=== PATIENT | female | born 1945 | race Caucasian/White ===

== ENCOUNTER 2024-11-09 07:46 | Observation (INO) ==
--- NOTE | 2024-11-09 08:04 | Emergency Department Note ---
Impression & Plan Ambulatory dysfunction, Fall, Head injury, Acute pain of right hip ED Provider Note HISTORY OF PRESENT ILLNESS: Patient is a 79-year-old female presenting after a fall from standing. Patient reportedly was walking and trying to sit in a chair when she lost her footing and fell backwards, striking the back of her head and her right hip. No reported loss of consciousness. She is not on any anticoagulation or antiplatelet therapies. Patient reports she does not remember the events leading to her falling and hitting her head. She denies any numbness or tingling or weakness in her extremities. She is complaining of some right hip pain. History is difficult to obtain, as patient is a poor historian. Denies any chest pain, shortness of breath or lightheadedness prior to her fall. Denies any headache or changes in vision. Reports "I have a bump on the back of my head." ROS: as above PHYSICAL EXAM: Constitutional: Patient appears in no acute distress. HENT: Head: Normocephalic. Small hematoma to the right posterior occipital region. No overlying skin changes or lacerations. Eyes: EOMI, PERRL Mouth/Throat: Mucous membranes moist. Neck: Trachea midline. Neck supple. No midline cervical spine tenderness to palpation. Cardiovascular: RRR, No murmurs, rubs or gallops. Intact distal pulses. Pulmonary/Chest: No respiratory distress. Breath sounds clear and equal bilaterally. No wheezes or rales. Sizable masslike lesion on the left proximal breast. There is overlying scabs to the area. Mass is mobile and nontender to palpation. Abdominal: Abdomen soft, no tenderness, rebound or guarding. Back: No midline spinal tenderness, no paraspinal tenderness, no CVA tenderness. Musculoskeletal: No edema or deformity noted. Patient is able to straight leg raise with the left leg. She is unable to lift the right leg off the bed. She complains of pain in the right hip with internal and external rotation of the femur. No obvious deformity. Skin: Warm and dry. No rash, erythema, pallor or cyanosis Neurological: Alert. CN II-XII grossly intact, moving all extremities equally and fully. MDM: - Vitals signs showed hypotension - History obtained via patient and EMS. History as above. - Chronic conditions affecting care: none - Differential diagnoses include, but are not limited to: Intracranial hemorrhage; CVA; skull fracture; UTI; pneumonia; hip fracture - Order placed for continuous cardiac monitoring. At this time, monitor showed rate of 83 bpm with normal sinus rhythm, per my interpretation. - External medical records reviewed. - EKG image interpreted by myself showed normal sinus rhythm. Rate 94 bpm. QT 366. No acute ischemic changes. - Laboratory workup interpreted by myself showed normal WBC; normal PT/INR; stable electrolytes; CKD; normal troponin - CXR image viewed by myself is negative for pneumonia or pneumothorax, per my interpretation - Xray pelvis with right hip views were negative for fracture. - CT head wo contrast for acute intracranial pathology. - CT cervical spine wo contrast negative for acute fracture. - Patient given 500 cc NS in ER. - Attempted to ambulatory challenge the patient to see about getting her discharged back to her facility. 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 Nursing called the patient's facility and they report that the patient is normally ambulatory without any assistive devices. Will admit to hospital service for PT/OT assessment. - Discussion was had with clinical case manager about patient's case and need for admission - Hospitalist consulted for admission - [facility] ASSESSMENT AND PLAN: Diagnosis: Fall; head injury; acute right hip pain; ambulatory dysfunction Plan: Admit Past Med/Surg History Problem List (Updated 11/09/24 @ 13:19 by Rachele Estrella MD) Acute pain of right hip (Acute) Head injury (Acute) Fall (Acute) Ambulatory dysfunction (Acute) Social History Smoking Status: Never smoker Preferred Language: Kyrgyz Feels Safe at Home: Yes Allergies Allergies Allergy/AdvReac Type Severity Reaction Status Date / Time No Known Allergies Allergy Verified 11/09/24 09:28 Home Meds Home Medications Medication Instructions Recorded Confirmed cholecalciferol (vitamin D3) 50 50 mcg PO QAM 10/01/24 11/09/24 mcg (2,000 unit) capsule (Vitamin D3) cyanocobalamin (vitamin B-12) 1,000 mcg PO QAM 10/01/24 11/09/24 1,000 mcg tablet (Vitamin B-12) ferrous sulfate 325 mg (65 mg 325 mg PO 3XWK 10/01/24 11/09/24 iron) tablet (FeroSul) hydroxyzine HCl 25 mg tablet 25 mg PO BID 10/01/24 11/09/24 levothyroxine 75 mcg tablet 75 mcg PO QAM 10/01/24 11/09/24 Results & Data (ED) Vital Signs Vital Signs - 24 hr 11/09/24 07:45 11/09/24 07:45 11/09/24 08:08 Temperature 36.5 C 36.5 C Temperature Source Oral Oral Pulse Rate - Lying Pulse Rate - Sitting Pulse Rate - Standing Pulse Rate 89 89 Pulse Rate [Apical] 89 Pulse Rhythm Regular Regular Pulse Rhythm [Apical] Regular Pulse Strength Normal Pulse Strength [Apical] Normal Respiratory Rate 16 16 16 Respiratory Effort / Characteristics Non-Labored Spontaneous Non-Labored Spontaneous Respiratory Depth Normal Normal Respiratory Pattern Regular Regular Blood Pressure - Lying Blood Pressure - Sitting Blood Pressure- Standing Blood Pressure 95/71 L Blood Pressure [Right Arm] 95/71 L Blood Pressure Mean 79 Blood Pressure Mean [Right Arm] 79 Blood Pressure Position Lying Blood Pressure Position [Right Arm] Lying Pulse Oximetry 100 100 100 Oxygen Delivery Method Room Air Room Air Sepsis Recent Fever Within 48 Hours No Sepsis New/Unexplained Change in Mental Status No Sepsis Action Taken by Nursing No Action Required 11/09/24 08:08 11/09/24 09:37 11/09/24 10:04 Temperature Temperature Source Pulse Rate - Lying Pulse Rate - Sitting Pulse Rate - Standing Pulse Rate 86 Pulse Rate [Apical] 94 H 66 Pulse Rhythm Pulse Rhythm [Apical] Regular Regular Pulse Strength Pulse Strength [Apical] Normal Normal Respiratory Rate 18 21 Respiratory Effort / Characteristics Non-Labored Spontaneous Non-Labored Spontaneous Respiratory Depth Normal Normal Respiratory Pattern Regular Regular Blood Pressure - Lying Blood Pressure - Sitting Blood Pressure- Standing Blood Pressure Blood Pressure [Right Arm] 135/93 Blood Pressure Mean Blood Pressure Mean [Right Arm] 107 Blood Pressure Position Blood Pressure Position [Right Arm] Sitting Pulse Oximetry 98 94 Oxygen Delivery Method Room Air Room Air Sepsis Recent Fever Within 48 Hours Sepsis New/Unexplained Change in Mental Status Sepsis Action Taken by Nursing 11/09/24 10:04 11/09/24 12:00 Temperature Temperature Source Pulse Rate - Lying 87 Pulse Rate - Sitting 85 Pulse Rate - Standing 85 Pulse Rate Pulse Rate [Apical] 83 Pulse Rhythm Pulse Rhythm [Apical] Regular Pulse Strength Pulse Strength [Apical] Normal Respiratory Rate 15 Respiratory Effort / Characteristics Non-Labored Spontaneous Respiratory Depth Normal Respiratory Pattern Regular Blood Pressure - Lying 98/63 L Blood Pressure - Sitting 97/60 L Blood Pressure- Standing 96/55 L Blood Pressure Blood Pressure [Right Arm] 102/78 Blood Pressure Mean Blood Pressure Mean [Right Arm] 86 Blood Pressure Position Blood Pressure Position [Right Arm] Sitting Pulse Oximetry 98 Oxygen Delivery Method Room Air Sepsis Recent Fever Within 48 Hours Sepsis New/Unexplained Change in Mental Status Sepsis Action Taken by Nursing Laboratory Data 11/09/24 08:24 11/09/24 08:24 Lab Results 11/09/24 11/09/24 Range/Units 08:24 12:13 WBC 9.11 (4.8-10.8) K/ul RBC 3.97 L (4.20-5.40) M/uL Hgb 11.3 L (12.0-16.0) g/dl Hct 35.6 L (37.0-47.0) % MCV 89.7 (80.0-100.0) fL MCH 28.5 (25.0-34.0) pg MCHC 31.7 L (32.0-36.0) g/dL RDW Std Deviation 46.9 H (36.4-46.3) fL RDW Coeff of Walker 14.2 (11.5-14.5) % Plt Count 276 (130-400) K/uL MPV 9.3 L (9.4-12.4) fL Immature Gran % (Auto) 0.2 % Neut % (Auto) 56.6 % Lymph % (Auto) 32.2 % [place] % (Auto) 9.8 % Eos % (Auto) 0.8 % Baso % (Auto) 0.4 % Neut # (Auto) 5.16 (1.40-6.50) K/uL Lymph # (Auto) 2.93 (1.20-3.40) K/uL [place] # (Auto) 0.89 H (0.11-0.59) K/uL Eos # (Auto) 0.07 (0.00-0.50) K/uL Baso # (Auto) 0.04 (0.00-0.20) K/uL Immature Gran # (Auto) 0.02 (0.01-0.20) K/uL PT 10.6 (9.0-12.0) Seconds INR 1.0 (0.9-1.1) Sodium 140 (136-145) mmol/L Potassium 4.2 (3.5-5.1) mmol/L Chloride 109 H (98-107) mmol/L Carbon Dioxide 27 (21-32) mmol/L Anion Gap 4 (3-11) BUN 27 H (6-23) mg/dl Creatinine 1.63 H (0.6-1.2) mg/dl Est Cr Clr Drug Dosing Not Reportable eGFR 32.08 BUN/Creatinine Ratio 16.6 (10-20) Glucose 96 (70-99(Fasting)) mg/dl Calcium 8.7 (8.6-10.3) mg/dl Magnesium 1.9 (1.7-2.4) mg/dl Total Bilirubin 0.3 (0.2-1.0) mg/dl AST 13 (13-39) U/L ALT 8 (7-52) U/L Alkaline Phosphatase 80 (34-104) U/L Troponin I High Sens 4.9 (0-14) pg/ml Total Protein 5.8 L (6.0-8.3) gm/dl Albumin 2.9 L (3.4-5.0) gm/dl Globulin 2.9 (2.5-4.0) gm/dl Albumin/Globulin Ratio 1.0 (0.9-2) Urine Color Yellow Urine Appearance Clear (Clear) Urine pH 5.0 (4.5-7.5) Ur Specific Venus 1.013 (1.000-1.030) Urine Protein Negative (Negative) Urine Glucose (UA) Negative (Negative) Urine Ketones Negative (Negative) Urine Blood Negative (Negative) Urine Nitrite Negative (Negative) Urine Bilirubin Negative (Negative) Urine Urobilinogen Negative (Negative) Ur Leukocyte Esterase 1+ H (Negative) Urine WBC (Auto) 0-5 (0-5) /hpf Urine RBC (Auto) 0-2 (0-2) /hpf U Hyaline Cast (Auto) 6-10 H (0-2) /lpf U Epithel Cells (Auto) 0-2 (0-2) /hpf Urine Bacteria (Auto) None Seen (None Seen) Urine Comment Administered Medications Discontinued Medications Sodium Chloride (Nss) 500 mls @ 999 mls/hr IV .Q31M ONE Stop: 11/09/24 09:31 Last Infusion: 11/09/24 09:58 Dose: Infused Documented By: [facility] Admin: 11/09/24 09:20 Dose: 999 mls/hr Documented By: [facility] Imaging Data Radiologist's Impression: Cervical Spine CT 11/09/24 08:00 CT SCAN OF THE CERVICAL SPINE CLINICAL HISTORY: Fall. COMPARISON STUDY: Cervical spine CT October 01, 2024. TECHNIQUE: CT scan of the cervical spine is performed from the skull base to the upper thoracic spine. Images are reviewed in the axial, sagittal, and coronal planes. IV contrast was not administered for this examination. A dose lowering technique was utilized adhering to the principles of ALARA. CT DOSE: 1034.17 mGy.cm FINDINGS: Skeletal structures: There is no evidence of fracture or subluxation involving the cervical spine. Mild reversal of the cervical lordosis is unchanged. Vertebral body height and alignment are maintained. The odontoid process and lateral masses are intact. The atlantoaxial articulation is preserved. The spinous processes appear intact. Severe multilevel facet arthrosis and moderate disc space narrowing and endplate osteophytosis is again noted. Soft tissues: The prevertebral and paraspinous soft tissues are within normal limits. Calvarium: The visualized calvarium at the skull base appears intact. Brain parenchyma: Partially visualized brain parenchyma at the skull base is within normal limits. Lung apices: Clear as visualized. IMPRESSION: No acute cervical spine fracture or subluxation. ACT 112: Negative or not required by law. Electronically signed by: Roque Russell M.D. 11/09/2024 8:55 AM Chest X-Ray 11/09/24 08:00 XR chest 1V portable CLINICAL HISTORY: fall COMPARISON STUDY: None FINDINGS: Heart size and pulmonary vasculature are normal. No consolidation or pleural effusion. No pneumothorax. No grossly displaced rib fractures seen. IMPRESSION: No acute findings seen. ACT 112: Negative or not required by law. Electronically signed by: Johnson Collier M.D. 11/09/2024 8:[address] 11/09/24 08:00 CT SCAN OF THE BRAIN WITHOUT IV CONTRAST CLINICAL HISTORY: Fall. Head injury. COMPARISON STUDY: CT of the brain dated 10/01/2024 TECHNIQUE: Unenhanced axial CT scan of the brain is performed from the vertex to the skull base. Images are reviewed in the axial, sagittal, coronal planes. A dose lowering technique was utilized adhering to the principles of ALARA. FINDINGS: Brain parenchyma: There is age-related involutional change noting [id number] subcortical and periventricular microangiopathic disease. There is no hemorrhage, mass effect, or evidence of acute territorial ischemia by CT criteria. A tiny chronic lacunar infarct is noted in the right cerebellar hemisphere. Zimmerman-white matter differentiation is preserved. No extra-axial fluid collection is seen. Ventricles, sulci, cisterns: Prominent secondary to involutional change. Intracranial vasculature: There is atherosclerotic calcification of the cavernous carotid arteries. Calvarium: The skeletal structures are osteopenic. No depressed calvarial fracture is seen. Soft tissues: There is a posterior scalp contusion. Sinuses and mastoids: The visualized paranasal sinuses are clear. The mastoid air cells are well pneumatized. Orbits: The bony orbits are grossly intact. IMPRESSION: There is no hemorrhage, mass effect, or evidence of acute territorial ischemia by CT criteria. ACT 112: Negative or not required by law. Electronically signed by: Pollo Olivares M.D. 11/09/2024 8:54 AM Hip/Pelvis X-Ray 11/09/24 08:00 XR hip RT 2V w pelvis CLINICAL HISTORY: R hip pain s/p fall COMPARISON: None FINDINGS: There is a skinfold artifact. No fracture or dislocation seen. IMPRESSION: No fracture seen. ACT 112: Negative or not required by law. Electronically signed by: Johnson Collier M.D. 11/09/2024 8:26 AM Discharge Plan Visit Data Chief Complaint: Fall ED Provider: Rachele Estrella Discharge Problem: Ambulatory dysfunction, Fall, Head injury, Acute pain of right hip Condition: Fair Forms Stand Alone Forms: [facility] Prescriptions Prescriptions: No Action cyanocobalamin (vitamin B-12) [Vitamin B-12] 1,000 mcg Tablet 1,000 mcg PO QAM levothyroxine 75 mcg tablet 75 mcg PO QAM ferrous sulfate [FeroSul] 325 mg (65 mg iron) Tablet 325 mg PO 3XWK Rx Instructions: MON, WED, & FRI hydroxyzine HCl 25 mg tablet 25 mg PO BID cholecalciferol (vitamin D3) [Vitamin D3] 50 mcg (2,000 unit) Capsule 50 mcg PO QAM Referrals Referrals: Becca Ng [Primary Care Provider] -
--- NOTE | 2024-11-09 08:28 | XRay Report ---
XR chest 1V portable CLINICAL HISTORY: fall COMPARISON STUDY: None FINDINGS: Heart size and pulmonary vasculature are normal. No consolidation or pleural effusion. No p neumothorax. No grossly displaced rib fractures seen. IMPRESSION: No acute findings seen. ACT 112: Negative or not required by law. Electronically signed by: Johnson Collier M.D. 11/09/2024 8:26 AM
--- NOTE | 2024-11-09 08:28 | XRay Report ---
XR hip RT 2V w pelvis CLINICAL HISTORY: R hip pain s/p fall COMPARISON: None FINDINGS: There is a skinfold artifact. No fracture or dislocation seen. IMPRESSION: No fracture seen. ACT 112: Negative or not required by law. Electronically signed by: Johnson Collier M.D. 11/09/2024 8:26 AM
[2024-11-09 08:40] LABS: Hematocrit (blood only) 35.6 % (37.0-47.0); Hemoglobin 11.3 g/dl (12.0-16.0); Immature Granulocytes # (auto) 0.02 K/uL (0.01-0.20); Immature Granulocytes % (auto) 0.2 %; Mean Corpuscular Hemoglobin 28.5 pg (25.0-34.0); Mean Corpuscular Volume 89.7 fL (80.0-100.0); Platelet Count 276 K/uL (130-400); RDW Standard Deviation 46.9 fL (36.4-46.3); Red Blood Count 3.97 M/uL (4.20-5.40); White Blood Count 9.11 K/ul (4.8-10.8)
--- NOTE | 2024-11-09 08:56 | CT Scan Report ---
CT SCAN OF THE BRAIN WITHOUT IV CONTRAST CLINICAL HISTORY: Fall. Head injury. COMPARISON STUDY: CT of the brain dated 10/01/2024 TECHNIQUE: Unenhanced axial CT scan of the brain is performed from the vertex to the skull base. Imag es are reviewed in the axial, sagittal, coronal planes. A dose lowering technique was utilized adheri ng to the principles of LANDY. FINDINGS: Brain parenchyma: There is age-related involutional change noting [id number] subcortical and pe riventricular microangiopathic disease. There is no hemorrhage, mass effect, or evidence of acute ter ritorial ischemia by CT criteria. A tiny chronic lacunar infarct is noted in the right cerebellar hem isphere. Zimmerman-white matter differentiation is preserved. No extra-axial fluid collection is seen. Ventricles, sulci, cisterns: Prominent secondary to involutional change. Intracranial vasculature: There is atherosclerotic calcification of the cavernous carotid arteries. Calvarium: The skeletal structures are osteopenic. No depressed calvarial fracture is seen. Soft tissues: There is a posterior scalp contusion. Sinuses and mastoids: The visualized paranasal sinuses are clear. The mastoid air cells are well pneu matized. Orbits: The bony orbits are grossly intact. IMPRESSION: There is no hemorrhage, mass effect, or evidence of acute territorial ischemia by CT robetr talamantes. ACT 112: Negative or not required by law. Electronically signed by: Pollo Olivares M.D. 11/09/2024 8:54 AM
--- NOTE | 2024-11-09 08:57 | CT Scan Report ---
CT SCAN OF THE CERVICAL SPINE CLINICAL HISTORY: Fall. COMPARISON STUDY: Cervical spine CT October 01, 2024. TECHNIQUE: CT scan of the cervical spine is performed from the skull base to the upper thoracic spine . Images are reviewed in the axial, sagittal, and coronal planes. IV contrast was not administered fo r this examination. A dose lowering technique was utilized adhering to the principles of ALARA. CT DOSE: 1034.17 mGy.cm FINDINGS: Skeletal structures: There is no evidence of fracture or subluxation involving the cervical spine. Mi ld reversal of the cervical lordosis is unchanged. Vertebral body height and alignment are maintained . The odontoid process and lateral masses are intact. The atlantoaxial articulation is preserved. Th e spinous processes appear intact. Severe multilevel facet arthrosis and moderate disc space narrowin g and endplate osteophytosis is again noted. Soft tissues: The prevertebral and paraspinous soft tissues are within normal limits. Calvarium: The visualized calvarium at the skull base appears intact. Brain parenchyma: Partially visualized brain parenchyma at the skull base is within normal limits. Lung apices: Clear as visualized. IMPRESSION: No acute cervical spine fracture or subluxation. ACT 112: Negative or not required by law. Electronically signed by: Roque Russell M.D. 11/09/2024 8:55 AM
[2024-11-09 09:00] LABS: Alanine Aminotransferase 8 U/L (7-52); Albumin Globulin Ratio 1.0 (0.9-2); Alkaline Phosphatase 80 U/L (34-104); Anion Gap 4 (3-11); Bilirubin,Total 0.3 mg/dl (0.2-1.0); Blood Urea Nitrogen 27 mg/dl (6-23); Calcium 8.7 mg/dl (8.6-10.3); Carbon Dioxide 27 mmol/L (21-32); Chloride 109 mmol/L (98-107); Globulin 2.9 gm/dl (2.5-4.0); Glucose 96 mg/dl (70-99(Fasting)); Magnesium 1.9 mg/dl (1.7-2.4); Potassium 4.2 mmol/L (3.5-5.1); Sodium 140 mmol/L (136-145); Total Protein 5.8 gm/dl (6.0-8.3)
[2024-11-09] MEDS: SODIUM CHLORIDE 0.9% 500 ML IV ONE (09:20)
[2024-11-09 09:26] LABS: INR 1.0 (0.9-1.1); Prothrombin Time 10.6 Seconds (9.0-12.0)
[2024-11-09 13:03] LABS: Appearance Urine Clear (Clear); Bacteria Urine Automated None Seen (None Seen); Epithelial Cell Urine Auto 0-2 /hpf (0-2); Glucose Urine UA Negative (Negative); RBC Urine Automated 0-2 /hpf (0-2); WBC Urine Automated 0-5 /hpf (0-5)
--- NOTE | 2024-11-09 13:40 | History & Physical Report ---
Date of Service November 09, 2024 Assessment & Plan (1) Fall: Plan 79F with PMH demenita, CKD3, hypothyroidism who presents from [facility] with unwitnessed fall #Fall -No LOC. There was concern for her hitting the back of her head -Trauma scans neg for fracture -Full passive and active ROM of all extremities -She is max assist x 2 in ED -[facility] unwilling to take her back as she was reported to have been ambulating without assistance at [facility] Plan -PT/OT -Fall precautions -CM to assist for placement #Hypothyroidism -Check TSH. continue home synthroid 100mcg #CKD3 -At baseline. avoid nephrotoxic agents if possible #Dementia -Looks severe/end stage -High risk for delirium. -Avoid Beer's list medications -Reorientation techniques History of Present Illness Chief Complaint: fall Primary Care Provider: Becca Reza Ms. Espinoza is a pleasantly confused 79F with PMH dementia, CKD3, hypothyroidism who presents from [facility] with an unwitnessed fall at facility. According to report, there was no LOC. She was brought in for evaluation. she is a limited historian due to her dementia. She denies any complaints currently. Patient denies WARE vision changes, F/C, CP, palpitations, SOB, dyspnea, abd pain, N/V/D, dysuria. ED vitals stable Labs at baseline and consistent with known CKD3 Allergies Allergy/AdvReac Type Severity Reaction Status Date / Time No Known Allergies Allergy Verified 11/09/24 09:28 Home Medications Medication Instructions Recorded Confirmed Type cholecalciferol (vitamin D3) 50 50 mcg PO QAM 10/01/24 11/09/24 History mcg (2,000 unit) capsule (Vitamin D3) cyanocobalamin (vitamin B-12) 1,000 mcg PO QAM 10/01/24 11/09/24 History 1,000 mcg tablet (Vitamin B-12) ferrous sulfate 325 mg (65 mg 325 mg PO 3XWK 10/01/24 11/09/24 History iron) tablet (FeroSul) hydroxyzine HCl 25 mg tablet 25 mg PO BID 10/01/24 11/09/24 History levothyroxine 75 mcg tablet 75 mcg PO QAM 10/01/24 11/09/24 History Past Med/Surg History Problem List Acute pain of right hip (Acute) Head injury (Acute) Fall (Acute) Ambulatory dysfunction (Acute) Social History Smoking Status: Never smoker Preferred Language: Upper Sorbian Feels Safe at Home: Yes Review of Systems Review of Systems: Constitutional: No Weight Change, No Fever, No Chills, No Night Sweats, No Fatigue, No Malaise ENT/Mouth: No Hearing Changes, No Ear Pain, No Nasal Congestion, No Sinus Pain, No Hoarseness, No sore throat, No Rhinorrhea, No Swallowing Difficulty Eyes: No Eye Pain, No Swelling, No Redness, No Foreign Body, No Discharge, No Vision Changes Cardiovascular: No Chest Pain, No SOB, No PND, No Dyspnea on Exertion, No Orthopnea, No Claudication, No Edema, No Palpitations Respiratory: No Cough, No Sputum, No Wheezing, No Smoke Exposure, No Dyspnea Gastrointestinal: No Nausea, No Vomiting, No Diarrhea, No Constipation, No Pain, No Heartburn, No Anorexia, No Dysphagia, No Hematochezia, No Melena, No Flatulence, No Jaundice Genitourinary: No Dysmenorrhea, No DUB, No Dyspareunia, No Dysuria, No Urinary Frequency, No Hematuria, No Urinary Incontinence, No Urgency, No Flank Pain, No Urinary Flow Changes, No Hesitancy Musculoskeletal: No Arthralgias, No Myalgias, No Joint Swelling, No Joint Stiffness, No Back Pain, No Neck Pain, No Injury History Skin: No Skin Lesions, No Pruritis, No Hair Changes, No Breast/Skin Changes, No Nipple Discharge Neuro: No Weakness, No Numbness, No Paresthesias, No Loss of Consciousness, No Syncope, No Dizziness, No Headache, No Coordination Changes, No Recent Falls Psych: No Anxiety/Panic, No Depression, No Insomnia, No Personality Changes, No Delusions, No Rumination, No SI/HI/AH/VH, No Social Issues, No Memory Changes, No Violence/Abuse Hx., No Eating Concerns Heme/Lymph: No Bruising, No Bleeding, No Transfusions History, No Lymphadenopathy Endocrine: No Polyuria, No Polydipsia, No Temperature Intolerance Physical Exam Physical Exam: Vitals and labs reviewed General: Well appearing, NAD HEENT: EOMI, PERRLA Neck: Supple Cardiac: RRR no rubs gallops or murmurs Lungs: CTA no rhonchi wheezing or rales Abd: S NT ND BS positive : Deferred MSK: Full active and passive ROM. No obvious deformities. Ext: No Edema cyanosis Skin: Warm, Dry Neuro: Alert. oriented to self only Psych: calm Results & Data Results & Data Vital Signs (Past 12 Hours) Vital Signs Temp Pulse Pulse Resp BP BP Pulse Ox 11/09/24 12:00 83 15 102/78 98 11/09/24 10:04 66 21 135/93 94 11/09/24 09:37 94 H 18 98 11/09/24 08:08 86 11/09/24 08:08 89 16 100 11/09/24 07:45 36.5 C 89 16 95/71 L 100 11/09/24 07:45 36.5 C 89 16 95/71 L 100 O2 Del Method 11/09/24 12:00 Room Air 11/09/24 10:04 Room Air 11/09/24 09:37 Room Air 11/09/24 08:08 11/09/24 08:08 Room Air 11/09/24 07:45 11/09/24 07:45 Room Air Laboratory Results Abnormal lab results 11/09/24 11/09/24 Range/Units 08:24 12:13 RBC 3.97 L (4.20-5.40) M/uL Hgb 11.3 L (12.0-16.0) g/dl Hct 35.6 L (37.0-47.0) % MCHC 31.7 L (32.0-36.0) g/dL RDW Std Deviation 46.9 H (36.4-46.3) fL MPV 9.3 L (9.4-12.4) fL [place] # (Auto) 0.89 H (0.11-0.59) K/uL Chloride 109 H (98-107) mmol/L BUN 27 H (6-23) mg/dl Creatinine 1.63 H (0.6-1.2) mg/dl Total Protein 5.8 L (6.0-8.3) gm/dl Albumin 2.9 L (3.4-5.0) gm/dl Ur Leukocyte Esterase 1+ H (Negative) U Hyaline Cast (Auto) 6-10 H (0-2) /lpf Diagnostic Findings Cervical Spine CT 11/09/24 08:00 CT SCAN OF THE CERVICAL SPINE CLINICAL HISTORY: Fall. COMPARISON STUDY: Cervical spine CT October 01, 2024. TECHNIQUE: CT scan of the cervical spine is performed from the skull base to the upper thoracic spine. Images are reviewed in the axial, sagittal, and coronal planes. IV contrast was not administered for this examination. A dose lowering technique was utilized adhering to the principles of ALARA. CT DOSE: 1034.17 mGy.cm FINDINGS: Skeletal structures: There is no evidence of fracture or subluxation involving the cervical spine. Mild reversal of the cervical lordosis is unchanged. Vertebral body height and alignment are maintained. The odontoid process and lateral masses are intact. The atlantoaxial articulation is preserved. The spinous processes appear intact. Severe multilevel facet arthrosis and moderate disc space narrowing and endplate osteophytosis is again noted. Soft tissues: The prevertebral and paraspinous soft tissues are within normal limits. Calvarium: The visualized calvarium at the skull base appears intact. Brain parenchyma: Partially visualized brain parenchyma at the skull base is within normal limits. Lung apices: Clear as visualized. IMPRESSION: No acute cervical spine fracture or subluxation. ACT 112: Negative or not required by law. Electronically signed by: Roque Russell M.D. 11/09/2024 8:55 AM Chest X-Ray 11/09/24 08:00 XR chest 1V portable CLINICAL HISTORY: fall COMPARISON STUDY: None FINDINGS: Heart size and pulmonary vasculature are normal. No consolidation or pleural effusion. No pneumothorax. No grossly displaced rib fractures seen. IMPRESSION: No acute findings seen. ACT 112: Negative or not required by law. Electronically signed by: Johnson Collier M.D. 11/09/2024 8:[address] 11/09/24 08:00 CT SCAN OF THE BRAIN WITHOUT IV CONTRAST CLINICAL HISTORY: Fall. Head injury. COMPARISON STUDY: CT of the brain dated 10/01/2024 TECHNIQUE: Unenhanced axial CT scan of the brain is performed from the vertex to the skull base. Images are reviewed in the axial, sagittal, coronal planes. A dose lowering technique was utilized adhering to the principles of ALARA. FINDINGS: Brain parenchyma: There is age-related involutional change noting mild-to- moderate subcortical and periventricular microangiopathic disease. There is no hemorrhage, mass effect, or evidence of acute territorial ischemia by CT criteria. A tiny chronic lacunar infarct is noted in the right cerebellar hemisphere. Zimmerman-white matter differentiation is preserved. No extra-axial fluid collection is seen. Ventricles, sulci, cisterns: Prominent secondary to involutional change. Intracranial vasculature: There is atherosclerotic calcification of the cavernous carotid arteries. Calvarium: The skeletal structures are osteopenic. No depressed calvarial fracture is seen. Soft tissues: There is a posterior scalp contusion. Sinuses and mastoids: The visualized paranasal sinuses are clear. The mastoid air cells are well pneumatized. Orbits: The bony orbits are grossly intact. IMPRESSION: There is no hemorrhage, mass effect, or evidence of acute territorial ischemia by CT criteria. ACT 112: Negative or not required by law. Electronically signed by: Pollo Olivares M.D. 11/09/2024 8:54 AM Hip/Pelvis X-Ray 11/09/24 08:00 XR hip RT 2V w pelvis CLINICAL HISTORY: R hip pain s/p fall COMPARISON: None FINDINGS: There is a skinfold artifact. No fracture or dislocation seen. IMPRESSION: No fracture seen. ACT 112: Negative or not required by law. Electronically signed by: Johnson Collier M.D. 11/09/2024 8:26 AM Code Status & VTE Plan Code Status Full. there was no POLST in chart or in EMR link. Attempted to call brother but was sent straight to Patient does not have capacity to make her own medical decisions due to dementia VTE Prophylaxis Plan VTE Prophylaxis will be ordered: Yes
[2024-11-09 14:10] LABS: Influenza A virus by PCR Negative (Neg); Influenza B virus by PCR Negative (Neg); SARS CoV2 RNA(COVID-19) Ceph NEGATIVE (Negative)
[2024-11-09 14:30] LABS: Thyroid Stimulating Hormone 1.183 uIu/ml (0.300-4.500)
[2024-11-09] MEDS ORDERED: ONDANSETRON INJ 2 MG/ML 2 ML VIAL IV PRN (15:37)
[2024-11-09] MEDS ORDERED: ACETAMINOPHEN 325 MG TAB PO PRN (15:37)
[2024-11-09] MEDS: HEPARIN SOD 5,000 UNIT/0.5 ML VIAL SQ SCH (20:12)
[2024-11-10 07:18] VITALS: RESP 18; O2SAT 97
[2024-11-10] MEDS: DONEPEZIL HCL 10 MG TAB PO SCH (08:22)
[2024-11-10] MEDS: LEVOTHYROXINE SODIUM 100 MCG TABLET PO SCH (08:22)
--- NOTE | 2024-11-10 15:06 | Discharge Summary ---
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 In the emergency room she had extensive imaging. There was no acute fractures. However she was quite sore and was unable to ambulate without significant assistance. Patient was cared for in the hospital overnight. By the following morning she was sitting up on the edge of the bed. She was setting up her own breakfast tray. She denied any significant pain. Other vital signs are stable. Patient was seen by therapies. Her mobility improved to the point where she could return back to [facility] for ongoing care. She will follow-up with her outpatient provider. Notes For Next Care Provider Continue current care Medication Changes From Visit None Admission HPI Per Admitting Provider Ms. Espinoza is a pleasantly confused 79F with H dementia, CKD3, hypothyroidism who presents from [facility] with an unwitnessed fall at facility. According to report, there was no LOC. She was brought in for evaluation. she is a limited historian due to her dementia. She denies any complaints currently. Patient denies WARE vision changes, F/C, CP, palpitations, SOB, dyspnea, abd pain, N/V/D, dysuria. ED vitals stable Labs at baseline and consistent with known CKD3 Admission Exam Per Admitting Provider See H&P Discharge Exam Constitutional: Alert HEENT: Mucous membranes moist. Lungs: Clear to auscultation, decreased, no wheezes rales or rhonchi CV: S1-S2, regular Abdomen: Soft, nontender, nondistended Extremities: No significant edema Neuro: No focal deficits Psych: Cooperative, impaired memory and cognition Updated Medication List Medication Instructions Recorded Confirmed Type cholecalciferol (vitamin D3) 50 50 mcg PO QAM 10/01/24 11/09/24 History mcg (2,000 unit) capsule (Vitamin D3) cyanocobalamin (vitamin B-12) 1,000 mcg PO QAM 10/01/24 11/09/24 History 1,000 mcg tablet (Vitamin B-12) ferrous sulfate 325 mg (65 mg 325 mg PO 3XWK 10/01/24 11/09/24 History iron) tablet (FeroSul) hydroxyzine HCl 25 mg tablet 25 mg PO BID 10/01/24 11/09/24 History levothyroxine 75 mcg tablet 75 mcg PO QAM 10/01/24 11/09/24 History Hospital Stay Data Consultations 11/09/24 13:14 ED Decision to Admit Stat Diagnostic Imagining Performed 11/09/24 08:00 CT cervical spine wo con Stat CT head/brain wo con Stat Reviewed imaging, laboratory and diagnostic studies. Pertinent findings as below. WBCs 9.1 Hemoglobin 11.3 Electrolytes stable Creatinine 1.63, baseline Urinalysis unremarkable for any signs of infection COVID/flu/RSV negative Hip and pelvis x-ray no fracture Head CT no hemorrhage mass effects or evidence of ischemia Chest x-ray no acute findings Cervical spine x-ray no fracture or acute findings Pending Results Patient Have Any Pending Studies at Discharge: No Discharge Instructions Given to Patient (Per Discharging Provider) Continue with care at [facility] Consider therapies Total Time Total Time Spent Total Time Spent (In Minutes): 25
[2024-11-10 15:27] VITALS: BP 95/59; PULSE 79; TEMP 97.9
--- NOTE | 2024-11-11 07:03 | Electrocardiogram Report ---
Test Reason : Blood Pressure : */* mmHG Vent. Rate : 94 BPM Atrial Rate : 80 BPM P-R Int : 174 ms QRS Dur : 70 ms QT Int : 366 ms P-R-T Axes : -21 -12 -54 degrees QTcB Int : 457 ms Poor data quality, interpretation may be adversely affected Sinus rhythm Low voltage QRS Cannot rule out Inferior infarct , age undetermined Abnormal ECG No previous ECGs available Confirmed by Thiago Jose ([id number]) on 11/11/2024 7:03:08 AM Referred By: REFERRED SELF Confirmed By: Thiago Jose
== END 2024-11-10 17:27 | disposition home or self-care (01) ==
LOC: 3W 07:46 → ED 07:46 → SUATTDRO 13:33 → 3W 15:41

== ENCOUNTER 2025-01-01 22:19 | Inpatient (IN) ==
[2025-01-01 23:24] LABS: Hematocrit (blood only) 34.2 % (37.0-47.0); Hemoglobin 10.8 g/dl (12.0-16.0); Immature Granulocytes # (auto) 0.03 K/uL (0.01-0.20); Immature Granulocytes % (auto) 0.3 %; Mean Corpuscular Hemoglobin 28.4 pg (25.0-34.0); Mean Corpuscular Volume 90.0 fL (80.0-100.0); Platelet Count 295 K/uL (130-400); RDW Standard Deviation 49.3 fL (36.4-46.3); Red Blood Count 3.80 M/uL (4.20-5.40); White Blood Count 10.75 K/ul (4.8-10.8)
--- NOTE | 2025-01-01 23:31 | Emergency Department Note ---
Impression & Plan Closed fracture of left hip, Fall, Acute UTI admit to the [facility] ED Provider Note NAME: YOBANY HARO AGE: 79 SEX: Female INFORMANT: Patient ED PROVIDER(S): Ely Bennett DO CHIEF COMPLAINT: fall PLAN: Disposition: admit to the [facility] MEDICAL DECISION MAKING: This is a 79-year-old female patient from [facility] who presents to the emergency department complaining of hip pain. the patient was found on the floor unable to move because of pain. She was brought to the emergency department by EMS. On my exam, the patient seems to localize her pain to the left hip. Patient was medicated with IV fentanyl here to facilitate radiographic imaging. She had laboratory studies drawn a catheterized urine specimen obtained. X-ray showed a femoral neck fracture and urine specimen showed a UTI. She required additional doses of IV fentanyl for pain management. I discussed the case with the [facility] and he will evaluate for further inpatient care. Laboratory studies revealed no leukocytosis or worsening anemia. Renal function was normal. Glucose was normal. Care/management discussed with: marketing segment manager and [facility] Triage Nursing notes: reviewed and agree With them. Vital Signs: reviewed and unremarkable Additional History obtained from: EMS Chronic Medical/Social Conditions affecting care: dementia Differential Diagnosis: pelvis fracture, hip fracture, femur fracture, anemia, UTI, hypoglycemia Diagnostics, independently interpreted by me: Cardiac Monitoring: normal sinus rhythm at a rate of 77 Imaging studies: left hip/pelvis x-ray: left femoral neck fracture HPI: 79 year old Female arrives for evaluation of Fall. patient from [facility] unit who presents to the emergency department complaining of hip pain. the patient was on the floor will remove because of the pain. She was brought to the emergency department by EMS. On my exam, the patient seems to localize her pain to the left hip. PAST MEDICAL HISTORY: See Below, PAST SURGICAL HISTORY: See Below, SOCIAL HISTORY: See Below, HOME MEDICATIONS: see list ALLERGIES: none VITALS: See Below PHYSICAL EXAMINATION: Primary Survey Airway: Intact Breathing: Normal, breath sounds equal bilaterally Circulation: Skin warm, distal pulses 2+, capillary refill less than 2 seconds Disability Pupils: Equal and reactive to light, 2mm, brisk GCS: 15, E = 6 V=5 M= 4 Motor Function: Moves all extremities. Sensory: No deficits Secondary Survey GEN: Well developed and well-nourished HEAD: Normal cephalic atraumatic EYES: Pupils round reactive to light, conjunctiva clear, extraocular movements intact, no raccoons eyes ENT: No fluid in external acoustic canals, no hemotympanum, no henry's sign, nares patent, oropharynx clear NECK: No JVD, midline trachea, no cervical spine tenderness HEART: Regular rate and rhythm LUNGS: Clear to auscultation bilaterally. CHEST: Chest wall non-tender, no bruising/deformity ABD: No Gutierrez-Gill's or Morrow's sign, soft, non-tender, no rebound or guarding, PELVIS: Stable to rock. Patient does endorse some pain with compression to the left side of her pelvis BACK: No step offs or deformities, T-L spine non tender EXT: 2+ global pulses, moving all extremities well, +5/5 muscle strength globally she does have pain with palpation over the left hip. She does yell out in pain with any manipulation to the left lower extremity specifically at the hip. NEURO: patient is pleasantly confused but does follow commands Emergency department treatment: traffic monitor specialist, IV fentanyl, IV Zofran, IV fentanyl Emergency department course: The patient was evaluated in room A-12-B. A complete history and physical was performed. IV lock was initiated and labs were drawn as above. Patient was medicated with IV fentanyl to facilitate getting plain films of the left hip and pelvis. a Sims catheter was placed. she received a second dose of IV fentanyl. [facility] for [facility] care. 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: No Beliefs That Will Affect Care: None Current Living Situation: Senior Care Current Living Situation Comment: [facility] Other Information That Helps Us Care for You: No (unable to obtain) Feels Safe at Home: Declines to Answer Assistive Devices: Hospital Bed Allergies Allergies Allergy/AdvReac Type Severity Reaction Status Date / Time No Known Allergies Allergy Verified 01/01/25 23:39 Home Meds Home Medications Medication Instructions Recorded Confirmed cholecalciferol (vitamin D3) 50 50 mcg PO QAM 10/01/24 01/01/25 mcg (2,000 unit) capsule (Vitamin D3) cyanocobalamin (vitamin B-12) 1,000 mcg PO QAM 10/01/24 01/01/25 1,000 mcg tablet (Vitamin B-12) ferrous sulfate 325 mg (65 mg 325 mg PO 3XWK 10/01/24 01/01/25 iron) tablet (FeroSul) levothyroxine 75 mcg tablet 75 mcg PO QAM 10/01/24 01/01/25 hydroxyzine HCl 25 mg tablet 25 mg PO BID 12/29/24 01/01/25 Results & Data (ED) Vital Signs Vital Signs - 24 hr 01/01/25 22:29 01/01/25 22:29 01/01/25 22:47 Temperature 36.7 C Temperature Source Oral Pulse Rate 80 81 Pulse Rate [Apical] 80 Respiratory Rate 16 16 Blood Pressure 124/52 L Blood Pressure [Left Arm] 124/52 L Blood Pressure Mean 76 Blood Pressure Mean [Left Arm] 76 Pulse Oximetry 99 99 Oxygen Delivery Method Room Air Room Air Sepsis Recent Fever Within 48 Hours No Sepsis New/Unexplained Change in Mental Status No Sepsis Action Taken by Nursing No Action Required 01/01/25 23:09 01/02/25 00:00 Temperature Temperature Source Pulse Rate 80 84 Pulse Rate [Apical] Respiratory Rate 18 Blood Pressure 134/78 Blood Pressure [Left Arm] Blood Pressure Mean 106 Blood Pressure Mean [Left Arm] Pulse Oximetry 99 99 Oxygen Delivery Method Room Air Room Air Sepsis Recent Fever Within 48 Hours Sepsis New/Unexplained Change in Mental Status Sepsis Action Taken by Nursing Laboratory Data 01/01/25 22:42 01/01/25 22:42 Lab Results 01/01/25 01/01/25 01/02/25 Range/Units 22:42 23:34 00:15 WBC 10.75 (4.8-10.8) K/ul RBC 3.80 L (4.20-5.40) M/uL Hgb 10.8 L (12.0-16.0) g/dl POC Hgb 11.6 L (12.0-16.0) g/dl Hct 34.2 L (37.0-47.0) % POC Hct 34 L (37-47) % MCV 90.0 (80.0-100.0) fL MCH 28.4 (25.0-34.0) pg MCHC 31.6 L (32.0-36.0) g/dL RDW Std Deviation 49.3 H (36.4-46.3) fL RDW Coeff of Walker 14.9 H (11.5-14.5) % Plt Count 295 (130-400) K/uL MPV 10.0 (9.4-12.4) fL Immature Gran % (Auto) 0.3 % Neut % (Auto) 52.2 % Lymph % (Auto) 39.5 % Hand % (Auto) 6.9 % Eos % (Auto) 0.6 % Baso % (Auto) 0.5 % Neut # (Auto) 5.62 (1.40-6.50) K/uL Lymph # (Auto) 4.25 H (1.20-3.40) K/uL Hand # (Auto) 0.74 H (0.11-0.59) K/uL Eos # (Auto) 0.06 (0.00-0.50) K/uL Baso # (Auto) 0.05 (0.00-0.20) K/uL Immature Gran # (Auto) 0.03 (0.01-0.20) K/uL PT 10.3 (9.0-12.0) Seconds INR 1.0 (0.9-1.1) APTT 23 (21-31) Seconds PTT Ratio 0.8 POC Sodium 140 (135-144) mmol/L Sodium 141 (136-145) mmol/L POC Potassium 4.8 (3.3-5.0) mmol/L Potassium 4.7 (3.5-5.1) mmol/L POC Chloride 106 (101-112) mmol/L Chloride 108 H (98-107) mmol/L Carbon Dioxide 28 (21-32) mmol/L POC Total CO2 25 (24-31) mmol/L Anion Gap 5 (3-11) POC Anion Gap 15.0 L (16-25) mmol/L POC BUN 29 H (7-18) mg/dl BUN 28 H (6-23) mg/dl Creatinine 1.52 H (0.6-1.2) mg/dl POC Creatinine 1.6 H (0.6-1.3) mg/dl Est Cr Clr Drug Dosing Not Reportable eGFR 34.89 BUN/Creatinine Ratio 18.4 (10-20) Glucose 110 H (70-99(Fasting)) mg/dl POC Glucose (other) 127 H (70-99) mg/dl Calcium 9.1 (8.6-10.3) mg/dl POC Ioniz Calcium Marce 1.17 (1.12-1.32) mmol/l Total Bilirubin 0.3 (0.2-1.0) mg/dl AST 14 (13-39) U/L ALT 9 (7-52) U/L Alkaline Phosphatase 104 (34-104) U/L Total Protein 5.9 L (6.0-8.3) gm/dl Albumin 2.8 L (3.4-5.0) gm/dl Globulin 3.1 (2.5-4.0) gm/dl Albumin/Globulin Ratio 0.9 (0.9-2) Lipase 35 (11-82) U/L Urine Color Yellow Urine Appearance Clear (Clear) Urine pH 7.5 (4.5-7.5) Ur Specific [place] 1.017 (1.000-1.030) Urine Protein Trace H (Negative) Urine Glucose (UA) Negative (Negative) Urine Ketones Negative (Negative) Urine Blood 2+ H (Negative) Urine Nitrite Positive A (Negative) Urine Bilirubin Negative (Negative) Urine Urobilinogen Negative (Negative) Ur Leukocyte Esterase 2+ H (Negative) Urine WBC (Auto) >50 H (0-5) /hpf Urine RBC (Auto) >20 H (0-2) /hpf U Hyaline Cast (Auto) 3-5 H (0-2) /lpf U Epithel Cells (Auto) 0-2 (0-2) /hpf Urine Bacteria (Auto) 4+ H (None Seen) Urine Comment Administered Medications Hydromorphone HCl (Hydromorphone Inj 0.5 Mg/0.5 Ml Syr) 0.25 mg IV Q6H PRN PRN Reason: Pain Stop: 01/16/25 02:08 Last Admin: 01/02/25 02:21 Dose: 0.25 mg Documented By: FELICIA Lactated Ringer's (Lr) 1,000 mls @ 80 mls/hr IV .[id number] THOMAS Stop: 01/05/25 02:08 Last Admin: 01/02/25 02:17 Dose: 80 mls/hr Documented By: FELICIA Discontinued Medications Fentanyl Citrate (Fentanyl Citrate Pf 100 Mcg/2 Ml Vial) 25 mcg IV NOW ONE Stop: 01/01/25 23:07 Last Admin: 01/01/25 23:32 Dose: 25 mcg Documented By: YOANA Fentanyl Citrate (Fentanyl Citrate Pf 100 Mcg/2 Ml Vial) 50 mcg IV NOW STA Stop: 01/01/25 23:50 Last Admin: 01/01/25 23:57 Dose: 50 mcg Documented By: YOANA Ondansetron HCl (Ondansetron Inj 2 Mg/Ml 2 Ml Vial) 4 mg IV NOW STA Stop: 01/01/25 23:07 Last Admin: 01/01/25 23:32 Dose: 4 mg Documented By: YOANA Discharge Plan Visit Data Chief Complaint: Fall Stated Complaint: GLF, BILATERAL HIP PAIN ED Provider: Ely Bennett Discharge Problem: Closed fracture of left hip, Fall, Acute UTI Patient Disposition: Admitted As Inpatient Condition: Serious Discharge Instructions Interventions: ED Discharge Assessment Last Done: 01/02/25 01:29
[2025-01-01] MEDS: ONDANSETRON INJ 2 MG/ML 2 ML VIAL IV STA (23:32)
[2025-01-01 23:43] LABS: Alanine Aminotransferase 9 U/L (7-52); Albumin Globulin Ratio 0.9 (0.9-2); Albumin Level 2.8 gm/dl (3.4-5.0); Alkaline Phosphatase 104 U/L (34-104); Anion Gap 5 (3-11); Bilirubin,Total 0.3 mg/dl (0.2-1.0); Blood Urea Nitrogen 28 mg/dl (6-23); Calcium 9.1 mg/dl (8.6-10.3); Carbon Dioxide 28 mmol/L (21-32); Chloride 108 mmol/L (98-107); Globulin 3.1 gm/dl (2.5-4.0); Glucose 110 mg/dl (70-99(Fasting)); Lipase 35 U/L (11-82); Potassium 4.7 mmol/L (3.5-5.1); Sodium 141 mmol/L (136-145); Total Protein 5.9 gm/dl (6.0-8.3)
[2025-01-01 23:59] LABS: INR 1.0 (0.9-1.1); Partial Thromboplastin Time 23 Seconds (21-31); Prothrombin Time 10.3 Seconds (9.0-12.0)
[2025-01-02 00:33] LABS: Appearance Urine Clear (Clear); Bacteria Urine Automated 4+ (None Seen); Epithelial Cell Urine Auto 0-2 /hpf (0-2); Glucose Urine UA Negative (Negative); RBC Urine Automated >20 /hpf (0-2); WBC Urine Automated >50 /hpf (0-5)
[2025-01-02] MEDS ORDERED: ACETAMINOPHEN 1,000 MG/100 ML VIAL IV PRN (02:09)
[2025-01-02] MEDS ORDERED: POLYETHYLENE (MIRALAX) 17 GM PACK PO PRN (02:09)
[2025-01-02] MEDS ORDERED: ONDANSETRON INJ 2 MG/ML 2 ML VIAL IV PRN ×2 (02:09→14:08)
[2025-01-02] MEDS: LACTATED RINGER'S 1,000 ML IV SCH (02:17)
[2025-01-02] MEDS: HYDROmorphone INJ 0.5 MG/0.5 ML SYR IV PRN (02:21)
--- NOTE | 2025-01-02 02:24 | History & Physical Report ---
Date of Service January 02, 2025 Assessment & Plan (1) Fall: Plan: 79-year-old female with past medical history significant for type 2 diabetes, hyperlipidemia, hypothyroidism, CKD stage III, anemia, severe dementia coming from [facility] with fall. Patient was found on the floor. As per the staff patient was laying there for few minutes. When they got her up she complained of the left hip pain when patient was sent to the ER. As per staff patient ambulates without support. Eats regular food. Oriented to name only. No recent fevers. No recent cough. No recent nausea or vomitings . No diarrhea. No complaint of any pain prior to the fall. Patient currently resting comfortably. Hemodynamics okay. Could tell her name. When asked other questions she is mumbling something else which seems to be baseline for her as per the [facility] staff. Fall Possible let hip fracture on x ray will get Ct scan npo, fluids, pain control ortho consult will get ekg atleast moderate risk because of severe dementia and ckd Acute UTI rocephin will follow cultures Ckd stage 3 Cr 1.5 around baseline Anemia hb 10.8 around baseline DM not on meds ISS Toño monitor Hypothyroidism on Levothyroxine Severe Dementia Monitor for delerium Dvt Prophylaxis Scds on Right leg for now Furthe anticoagulation per Ortho. History of Present Illness Chief Complaint: Status post fall Primary Care Provider: [facility] 79-year-old female with past medical history significant for type 2 diabetes, hyperlipidemia, hypothyroidism, CKD stage III, anemia, severe dementia coming from [facility] unit with fall. Patient was found on the floor. As per the staff patient was laying there for few minutes. When they got her up she complained of the left hip pain when patient was sent to the ER. As per staff patient ambulates without support. Eats regular food. Oriented to name only. No recent fevers. No recent cough. No recent nausea or vomitings . No diarrhea. No complaint of any pain prior to the fall. Patient currently rest ing comfortably. Hemodynamics okay. Could tell her name. When asked other questions she is mumbling something else which seems to be baseline for her as per the [facility] staff. Past medical history. As mentioned above Past surgical history. Colonoscopy. EGD. Partial hysterectomy. Social history. No smoking. No alcohol use. No drug use. Family history. Father had lung cancer. Mother had diabetes. Heart disorder. Hyperlipidemia. Allergies Allergy/AdvReac Type Severity Reaction Status Date / Time No Known Allergies Allergy Verified 01/01/25 23:39 Home Medications Medication Instructions Recorded Confirmed Type cholecalciferol (vitamin D3) 50 50 mcg PO QAM 10/01/24 01/01/25 History mcg (2,000 unit) capsule (Vitamin D3) cyanocobalamin (vitamin B-12) 1,000 mcg PO QAM 10/01/24 01/01/25 History 1,000 mcg tablet (Vitamin B-12) ferrous sulfate 325 mg (65 mg 325 mg PO 3XWK 10/01/24 01/01/25 History iron) tablet (FeroSul) levothyroxine 75 mcg tablet 75 mcg PO QAM 10/01/24 01/01/25 History hydroxyzine HCl 25 mg tablet 25 mg PO BID 12/29/24 01/01/25 History Past Med/Surg History Problem List (Updated 01/02/25 @ 05:36 by Ely Bennett DO) Acute UTI (Acute) Fall (Acute) Closed fracture of left hip (Acute) Hypothyroid Dementia due to Alzheimer's disease Acute pain of right hip (Acute) Head injury (Acute) Fall (Acute) Ambulatory dysfunction (Acute) Social History Smoking Status: Unknown if ever smoked Cigarettes Per Day: unable to obtain; Preferred Language: Comoran Communication Ability: Impaired Communication Ability Comment: severe dementia Insurance Rater Required: No Beliefs That Will Affect Care: None Current Living Situation: Senior Care Current Living Situation Comment: [facility] Other Information That Helps Us Care for You: No (unable to obtain) Feels Safe at Home: Declines to Answer Assistive Devices: Hospital Bed Review of Systems Review of Systems: Unobtainable due to cognitive status Physical Exam Physical Exam: General- Not in acute distress. Severe dementia Head- atraumatic Eyes- PERRL. ENT- oropharynx clear Lungs- clear to auscultation no wheezing or crackles Heart- regular rhythm; no murmur, no gallop. Abdomen- normal bowel sounds, soft, nontender, no distension Extremities- no pretibial edema, Left leg seems shortened Neuro- alert, oriented x 1; PERRL, no facial palsy; no dysarthria. Results & Data Results & Data Vital Signs (Past 12 Hours) Vital Signs Temp Pulse Pulse Resp BP BP Pulse Ox 01/02/25 00:00 84 18 134/78 99 01/01/25 23:09 80 99 01/01/25 22:47 81 01/01/25 22:29 80 16 124/52 L 99 01/01/25 22:29 36.7 C 80 16 124/52 L 99 O2 Del Method 01/02/25 00:00 Room Air 01/01/25 23:09 Room Air 01/01/25 22:47 01/01/25 22:29 Room Air 01/01/25 22:29 Room Air Diagnostic Findings Laboratory Results WBC 10.75 K/ul (4.8-10.8) 01/01/25 22:42 RBC 3.80 M/uL (4.20-5.40) L 01/01/25 22:42 Hgb 10.8 g/dl (12.0-16.0) L 01/01/25 22:42 POC Hgb 11.6 g/dl (12.0-16.0) L 01/01/25 23:34 Hct 34.2 % (37.0-47.0) L 01/01/25 22:42 POC Hct 34 % (37-47) L 01/01/25 23:34 MCV 90.0 fL (80.0-100.0) 01/01/25 22:42 MCH 28.4 pg (25.0-34.0) 01/01/25 22:42 MCHC 31.6 g/dL (32.0-36.0) L 01/01/25 22:42 RDW Std Deviation 49.3 fL (36.4-46.3) H 01/01/25 22:42 RDW Coeff of Walker 14.9 % (11.5-14.5) H 01/01/25 22:42 Plt Count 295 K/uL (130-400) 01/01/25 22:42 MPV 10.0 fL (9.4-12.4) 01/01/25 22:42 Immature Gran % (Auto) 0.3 % 01/01/25 22:42 Neut % (Auto) 52.2 % 01/01/25 22:42 Lymph % (Auto) 39.5 % 01/01/25 22:42 [place] % (Auto) 6.9 % 01/01/25 22:42 Eos % (Auto) 0.6 % 01/01/25 22:42 Baso % (Auto) 0.5 % 01/01/25 22:42 Neut # (Auto) 5.62 K/uL (1.40-6.50) 01/01/25 22:42 Lymph # (Auto) 4.25 K/uL (1.20-3.40) H 01/01/25 22:42 [place] # (Auto) 0.74 K/uL (0.11-0.59) H 01/01/25 22:42 Eos # (Auto) 0.06 K/uL (0.00-0.50) 01/01/25 22:42 Baso # (Auto) 0.05 K/uL (0.00-0.20) 01/01/25 22: Immature Gran # (Auto) 0.03 K/uL (0.01-0.20) 01/01/25 22:42 PT 10.3 Seconds (9.0-12.0) 01/01/25 22:42 INR 1.0 (0.9-1.1) 01/01/25 22:42 APTT 23 Seconds (21-31) 01/01/25 22:42 PTT Ratio 0.8 01/01/25 22:42 POC Sodium 140 mmol/L (135-144) 01/01/25 23:34 Sodium 141 mmol/L (136-145) 01/01/25 22:42 POC Potassium 4.8 mmol/L (3.3-5.0) 01/01/25 23:34 Potassium 4.7 mmol/L (3.5-5.1) 01/01/25 22:42 POC Chloride 106 mmol/L (101-112) 01/01/25 23:34 Chloride 108 mmol/L (98-107) H 01/01/25 22:42 Carbon Dioxide 28 mmol/L (21-32) 01/01/25 22:42 POC Total CO2 25 mmol/L (24-31) 01/01/25 23:34 Anion Gap 5 (3-11) 01/01/25 22:42 POC Anion Gap 15.0 mmol/L (16-25) L 01/01/25 23:34 POC BUN 29 mg/dl (7-18) H 01/01/25 23:34 BUN 28 mg/dl (6-23) H 01/01/25 22:42 Creatinine 1.52 mg/dl (0.6-1.2) H 01/01/25 22:42 POC Creatinine 1.6 mg/dl (0.6-1.3) H 01/01/25 23:34 Est Cr Clr Drug Dosing Not Reportable 01/01/25 22:42 eGFR 34.89 01/01/25 22:42 BUN/Creatinine Ratio 18.4 (10-20) 01/01/25 22:42 Glucose 110 mg/dl (70-99(Fasting)) H 01/01/25 22:42 POC Glucose (other) 127 mg/dl (70-99) H 01/01/25 23:34 Calcium 9.1 mg/dl (8.6-10.3) 01/01/25 22:42 POC Ioniz Calcium Marce 1.17 mmol/l (1.12-1.32) 01/01/25 23:34 Total Bilirubin 0.3 mg/dl (0.2-1.0) 01/01/25 22:42 AST 14 U/L (13-39) 01/01/25 22:42 ALT 9 U/L (7-52) 01/01/25 22:42 Alkaline Phosphatase 104 U/L (34-104) 01/01/25 22:42 Total Protein 5.9 gm/dl (6.0-8.3) L 01/01/25 22:42 Albumin 2.8 gm/dl (3.4-5.0) L 01/01/25 22:42 Globulin 3.1 gm/dl (2.5-4.0) 01/01/25 22:42 Albumin/Globulin Ratio 0.9 (0.9-2) 01/01/25 22:42 Lipase 35 U/L (11-82) 01/01/25 22:42 Urine Color Yellow 01/02/25 00:15 Urine Appearance Clear (Clear) 01/02/25 00:15 Urine pH 7.5 (4.5-7.5) 01/02/25 00:15 Ur Specific [place] 1.017 (1.000-1.030) 01/02/25 00:15 Urine Protein Trace (Negative) H 01/02/25 00:15 Urine Glucose (UA) Negative (Negative) 01/02/25 00:15 Urine Ketones Negative (Negative) 01/02/25 00:15 Urine Blood 2+ (Negative) H 01/02/25 00:15 Urine Nitrite Positive (Negative) A 01/02/25 00: Urine Bilirubin Negative (Negative) 01/02/25 00: Urine Urobilinogen Negative (Negative) 01/02/25 00:15 Ur Leukocyte Esterase 2+ (Negative) H 01/02/25 00:15 Urine WBC (Auto) >50 /hpf (0-5) H 01/02/25 00:15 Urine RBC (Auto) >20 /hpf (0-2) H 01/02/25 00:15 U Hyaline Cast (Auto) 3-5 /lpf (0-2) H 01/02/25 00:15 U Epithel Cells (Auto) 0-2 /hpf (0-2) 01/02/25 00:15 Urine Bacteria (Auto) 4+ (None Seen) H 01/02/25 00:15 Urine Comment 01/02/25 00:15 Code Status & VTE Plan VTE Prophylaxis Plan VTE Prophylaxis will be ordered: Yes
[2025-01-02 06:27] LABS: Hematocrit (blood only) 29.8 % (37.0-47.0); Hemoglobin 9.3 g/dl (12.0-16.0); Immature Granulocytes # (auto) 0.04 K/uL (0.01-0.20); Immature Granulocytes % (auto) 0.3 %; Mean Corpuscular Hemoglobin 28.1 pg (25.0-34.0); Mean Corpuscular Volume 90.0 fL (80.0-100.0); Platelet Count 228 K/uL (130-400); RDW Standard Deviation 49.6 fL (36.4-46.3); Red Blood Count 3.31 M/uL (4.20-5.40); White Blood Count 11.83 K/ul (4.8-10.8)
[2025-01-02] MEDS: LEVOTHYROXINE SODIUM 75 MCG TABLET PO SCH (06:30)
[2025-01-02 06:46] LABS: Anion Gap 4.0 (3-11); Blood Urea Nitrogen 28.0 mg/dl (6-23); Calcium 8.7 mg/dl (8.6-10.3); Carbon Dioxide 26.0 mmol/L (21-32); Chloride 109.0 mmol/L (98-107); Creatinine Clr Calc Pharmacy 28.5 ml/min; Glucose 164.0 mg/dl (70-99(Fasting)); Magnesium 1.9 mg/dl (1.7-2.4); Potassium 5.0 mmol/L (3.5-5.1); Sodium 139.0 mmol/L (136-145)
--- NOTE | 2025-01-02 07:07 | XRay Report ---
EXAM: XR chest 1V portable CLINICAL HISTORY: Trauma TECHNIQUE: Radiograph of chest was acquired. 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 The cardiomediastinal silhouette is within normal limits. No acute osseous abnormality. IMPRESSION: 1. No acute cardiopulmonary disease. No other new interval abnormality since prior study. Electronically signed by Richy Carson 01-02-2025 07:07 AM
--- NOTE | 2025-01-02 07:13 | XRay Report ---
EXAM: XR hip LT 2V w pelvis CLINICAL HISTORY: fall. TECHNIQUE: X-ray images of the left hip joints in AP and lateral views and pelvis were obtained in anteroposterior (AP) projection. COMPARISON: No prior studies are available for comparison. FINDINGS: Subtle lucency through lesser trochanter of femur Cortical breach near neck of femur. The femoral heads are normal and are centered within the acetabulum. The symphysis pubis is normal and intact. There is no evidence of separation or widening. The visualized soft tissues are normal and unremarkable. IMPRESSION: Subtle lucency through lesser trochanter of femur Cortical breach near neck of femur. Findings are likely suggestive of fracture. A subtle bone abnormality or fracture may not be readily apparent on X-rays, thus clinical correlation and further imaging including follow-up CT, MRI, or follow-up X-rays are advised as needed. Electronically signed by Richy Carson 01-02-2025 07:13 AM
[2025-01-02] MEDS ORDERED: GLUCAGON FOR INJ 1 MG VIAL SQ PRN (08:11)
[2025-01-02] MEDS ORDERED: DEXTROSE 50% 50 ML SYRINGE IV PRN (08:11)
[2025-01-02] MEDS ORDERED: CARBOHYDRATES FOR HYPOGLYCEMIA PO PRN (08:11)
[2025-01-02] MEDS ORDERED: GLUCOSE 10 TAB/TUBE PO PRN (08:11)
[2025-01-02] MEDS ORDERED: GLUCOSE 40% GEL 15 GM TUBE PO PRN (08:11)
[2025-01-02] MEDS: SODIUM CHLORIDE 0.9% 1,000 ML IV SCH (08:24)
[2025-01-02] MEDS: CHOLECALCIFEROL 25 MCG (1000 UNITS) TAB PO SCH (09:46)
[2025-01-02] MEDS: cefTRIAXone SODIUM 2,000 MG/50 ML BAG IV SCH (09:46)
[2025-01-02] MEDS: CYANOCOBALAMIN (B-12) 500 MCG TABLET PO SCH (09:46)
[2025-01-02] MEDS: INSULIN ASPART PER UNIT CHARGE SC SCH ×2 (09:49→22:04)
--- NOTE | 2025-01-02 10:24 | CT Scan Report ---
CT SCAN OF THE LEFT HIP WITHOUT IV CONTRAST CLINICAL HISTORY: Fall. Left femoral fracture. COMPARISON STUDY: Left hip x-rays dated 01/01/2025 TECHNIQUE: CT scan of the left hip is performed from the bony pelvis to the femoral shaft. Images ar e reviewed in the axial, sagittal, and coronal planes. IV contrast was not administered for this exam ination. 3-D reformats are created and assessed. A dose lowering technique was utilized adhering to the principles of ALARA. CT DOSE: 210.82 mGy.cm FINDINGS: The skeletal structures are osteopenic. There is an impacted and comminuted intertrochanter ic fracture of the left femur which extends through the greater trochanter with large displaced fragm ents. There is also medial displacement of the lesser trochanter. There is surrounding edema/hemorrha ge, with intramuscular hemorrhage identified in the left iliopsoas musculature as well as within the left adductor compartment. The visualized left bony pelvis appears intact. No lytic or blastic lesion is seen. There is no avascular necrosis of the left femoral head. Moderate osteoarthritic change is seen in the left hip. There is likely hemarthrosis of the left hip joint. The bladder is partially vi sualized and decompressed around a Sims catheter. The uterus is surgically absent. Diverticulosis is noted in the partially imaged sigmoid colon. There is no left pelvic sidewall or left inguinal lymph adenopathy. IMPRESSION: 1. Comminuted intertrochanteric fracture of the left proximal femur as detailed above with displaced fragments and surrounding hemorrhage. 2. The visualized left bony pelvis appears intact. 3. There is intramuscular hemorrhage within the left iliopsoas and adductor musculature. ACT 112: Negative or not required by law. Electronically signed by: Pollo Olivares M.D. 01/02/2025 10:22 AM
--- NOTE | 2025-01-02 10:34 | Orthopedic Consultation ---
Date of Service January 02, 2025 Assessment & Plan (1) Intertrochanteric fracture of left femur: * Case/imaging reviewed and discussed with Dr Dunaway * Recommend OR fixation of intertrochanteric femur fracture * Plan for OR 01/02 * Weight bearing status: NWB preop * Maintain NPO for OR today * Daily treatment: Physical Therapy/ Occupational Therapy per protocol * Pain control * Disposition: TBD * Remainder care per primary team History of Present Illness Reason for Consultation: left hip pain Requesting Physician: . Attending Physician: Avila Patrick MD Patient is a 79y/o female with left hip pain. PMH including type 2 diabetes, hyperlipidemia, hypothyroidism, CKD stage III, anemia, severe dementia. Presents to hospital from assisted living facility with left hip pain. Per report, unwitnessed fall, patient was found on the floor and after being assisted by staff complained of left hip pain. Current workup including x-ray and CT left hip demonstrating intertrochanteric femur fracture. Admitted to hospital medicine team. Orthopedics consulted for management recommendations. At time of exam patient lying comfortably in bed, no acute distress. Unable to obtain further history from patient given dementia, limited participation in exam. Appears comfortable. Per report patient ambulates independently at baseline Allergies Allergy/AdvReac Type Severity Reaction Status Date / Time No Known Allergies Allergy Verified 01/01/25 23:39 Home Medications Medication Instructions Recorded Confirmed Type cholecalciferol (vitamin D3) 50 50 mcg PO QAM 10/01/24 01/01/25 History mcg (2,000 unit) capsule (Vitamin D3) cyanocobalamin (vitamin B-12) 1,000 mcg PO QAM 10/01/24 01/01/25 History 1,000 mcg tablet (Vitamin B-12) ferrous sulfate 325 mg (65 mg 325 mg PO 3XWK 10/01/24 01/01/25 History iron) tablet (FeroSul) levothyroxine 75 mcg tablet 75 mcg PO QAM 10/01/24 01/01/25 History hydroxyzine HCl 25 mg tablet 25 mg PO BID 12/29/24 01/01/25 History Past Med/Surg History Problem List (Updated 01/02/25 @ 10:32 by Jimy Vasquez PA-C) Intertrochanteric fracture of left femur Acute UTI (Acute) Fall (Acute) Hypothyroid Dementia due to Alzheimer's disease Acute pain of right hip (Acute) Head injury (Acute) Fall (Acute) Ambulatory dysfunction (Acute) Social History Smoking Status: Unknown if ever smoked Cigarettes Per Day: unable to obtain; Preferred Language: [place]an Communication Ability: Impaired Communication Ability Comment: severe dementia Field Operations Manager Required: No Beliefs That Will Affect Care: None Current [facility]uation[facility] Current Living Situation Comment: [facility] Other Information That Helps Us Care for You: No (unable to obtain) Feels Safe at Home: Declines to Answer Assistive Devices: Hospital Bed Review of Systems All systems reviewed & are unremarkable except as noted in HPI & below. Physical Exam * General: Alert and oriented, no acute distress * Constitutional: well-developed, well-nourished. * Respiratory: Normal respiratory effort, no distress * Gastrointestinal: No tenderness to palpation, no rigidity or guarding. * Skin: No rash or lesion. * Neurologic: Grossly normal * Musculoskeletal: Left lower extremity with no obvious deformity or overlying skin changes. TTP proximal femur/anterior hip region. Otherwise no apparent tenderness of the distal thigh, knee, lower leg. Pain with logroll, otherwise ROM hip not assessed. AROM foot/ankle intact with spontaneous movements. Sharron ble to assess sensation. Brisk capillary refill. Results & Data Results & Data Laboratory Results . 01/02/25 00:15 Urine Culture - Pending Urine,Straight Cath 01/02/25 01/02/25 01/02/25 08:27 05:33 02:51 WBC 11.83 H RBC 3.31 L Hgb 9.3 L POC Hgb Hct 29.8 L POC Hct MCV 90.0 MCH 28.1 MCHC 31.2 L RDW Std Deviation 49.6 H RDW Coeff of Walker 15.0 H Plt Count 228 MPV 9.9 Immature Gran % (Auto) 0.3 Neut % (Auto) 83.3 Lymph % (Auto) 10.5 [place] % (Auto) 5.6 Eos % (Auto) 0.0 Baso % (Auto) 0.3 Neut # (Auto) 9.86 H Lymph # (Auto) 1.24 [place] # (Auto) 0.66 H Eos # (Auto) 0.00 Baso # (Auto) 0.03 Immature Gran # (Auto) 0.04 PT INR APTT PTT Ratio POC Sodium Sodium 139 POC Potassium Potassium 5.0 POC Chloride Chloride 109 H Carbon Dioxide 26 POC Total CO2 Anion Gap 4 POC Anion Gap POC BUN BUN 28 H Creatinine 1.36 H POC Creatinine Est Cr Clr Drug Dosing 28.5 eGFR 39.87 BUN/Creatinine Ratio 20.6 H Glucose 164 H POC Glucose 156 H POC Glucose (other) Calcium 8.7 POC Ioniz Calcium Marce Magnesium 1.9 Total Bilirubin AST ALT Alkaline Phosphatase Total Protein Albumin Globulin Albumin/Globulin Ratio Lipase Urine Color Urine Appearance Urine pH Ur Specific [place] Urine Protein Urine Glucose (UA) Urine Ketones Urine Blood Urine Nitrite Urine Bilirubin Urine Urobilinogen Ur Leukocyte Esterase Urine WBC (Auto) Urine RBC (Auto) U Hyaline Cast (Auto) U Epithel Cells (Auto) Urine Bacteria (Auto) Urine Comment Nasal Screen MRSA (PCR) Negative 01/02/25 01/01/25 01/01/25 00:15 23:34 22:42 WBC 10.75 RBC 3.80 L Hgb 10.8 L POC Hgb 11.6 L Hct 34.2 L POC Hct 34 L MCV 90.0 MCH 28.4 MCHC 31.6 L RDW Std Deviation 49.3 H RDW Coeff of Walker 14.9 H Plt Count 295 MPV 10.0 Immature Gran % (Auto) 0.3 Neut % (Auto) 52.2 Lymph % (Auto) 39.5 [place] % (Auto) 6.9 Eos % (Auto) 0.6 Baso % (Auto) 0.5 Neut # (Auto) 5.62 Lymph # (Auto) 4.25 H [place] # (Auto) 0.74 H Eos # (Auto) 0.06 Baso # (Auto) 0.05 Immature Gran # (Auto) 0.03 PT 10.3 INR 1.0 APTT 23 PTT Ratio 0.8 POC Sodium 140 Sodium 141 POC Potassium 4.8 Potassium 4.7 POC Chloride 106 Chloride 108 H Carbon Dioxide 28 POC Total CO2 25 Anion Gap 5 POC Anion Gap 15.0 L POC BUN 29 H BUN 28 H Creatinine 1.52 H POC Creatinine 1.6 H Est Cr Clr Drug Dosing Not Reportable eGFR 34.89 BUN/Creatinine Ratio 18.4 Glucose 110 H POC Glucose POC Glucose (other) 127 H Calcium 9.1 POC Ioniz Calcium Marce 1.17 Magnesium Total Bilirubin 0.3 AST 14 ALT 9 Alkaline Phosphatase 104 Total Protein 5.9 L Albumin 2.8 L Globulin 3.1 Albumin/Globulin Ratio 0.9 Lipase 35 Urine Color Yellow Urine Appearance Clear Urine pH 7.5 Ur Specific [place] 1.017 Urine Protein Trace H Urine Glucose (UA) Negative Urine Ketones Negative Urine Blood 2+ H Urine Nitrite Positive A Urine Bilirubin Negative Urine Urobilinogen Negative Ur Leukocyte Esterase 2+ H Urine WBC (Auto) >50 H Urine RBC (Auto) >20 H U Hyaline Cast (Auto) 3-5 H U Epithel Cells (Auto) 0-2 Urine Bacteria (Auto) 4+ H Urine Comment Nasal Screen MRSA (PCR) Diagnostic Findings . Chest X-Ray 01/01/25 23:06 EXAM: XR chest 1V portable CLINICAL HISTORY: Trauma TECHNIQUE: Radiograph of chest was acquired. 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 The cardiomediastinal silhouette is within normal limits. No acute osseous abnormality. IMPRESSION: 1. No acute cardiopulmonary disease. No other new interval abnormality since prior study. Electronically signed by Richy Carson 01-02-2025 07:07 AM Hip/Pelvis X-Ray 01/01/25 23:06 EXAM: XR hip LT 2V w pelvis CLINICAL HISTORY: fall. TECHNIQUE: X-ray images of the left hip joints in AP and lateral views and pelvis were obtained in anteroposterior (AP) projection. COMPARISON: No prior studies are available for comparison. FINDINGS: Subtle lucency through lesser trochanter of femur Cortical breach near neck of femur. The femoral heads are normal and are centered within the acetabulum. The symphysis pubis is normal and intact. There is no evidence of separation or widening. The visualized soft tissues are normal and unremarkable. IMPRESSION: Subtle lucency through lesser trochanter of femur Cortical breach near neck of femur. Findings are likely suggestive of fracture. A subtle bone abnormality or fracture may not be readily apparent on X-rays, thus clinical correlation and further imaging including follow-up CT, MRI, or follow-up X-rays are advised as needed. Electronically signed by Richy Carson 01-02-2025 07:[address] 01/02/25 07:26 CT SCAN OF THE LEFT HIP WITHOUT IV CONTRAST CLINICAL HISTORY: Fall. Left femoral fracture. COMPARISON STUDY: Left hip x-rays dated 01/01/2025 TECHNIQUE: CT scan of the left hip is performed from the bony pelvis to the femoral shaft. Images are reviewed in the axial, sagittal, and coronal planes. IV contrast was not administered for this examination. 3-D reformats are created and assessed. A dose lowering technique was utilized adhering to the principles of ALARA. CT DOSE: 210.82 mGy.cm FINDINGS: The skeletal structures are osteopenic. There is an impacted and comminuted intertrochanteric fracture of the left femur which extends through the greater trochanter with large displaced fragments. There is also medial displacement of the lesser trochanter. There is surrounding edema/hemorrhage, with intramuscular hemorrhage identified in the left iliopsoas musculature as well as within the left adductor compartment. The visualized left bony pelvis appears intact. No lytic or blastic lesion is seen. There is no avascular necrosis of the left femoral head. Moderate osteoarthritic change is seen in the left hip. There is likely hemarthrosis of the left hip joint. The bladder is partially visualized and decompressed around a Sims catheter. The uterus is surgically absent. Diverticulosis is noted in the partially imaged sigmoid colon. There is no left pelvic sidewall or left inguinal lymphadenopathy. IMPRESSION: 1. Comminuted intertrochanteric fracture of the left proximal femur as detailed above with displaced fragments and surrounding hemorrhage. 2. The visualized left bony pelvis appears intact. 3. There is intramuscular hemorrhage within the left iliopsoas and adductor musculature. ACT 112: Negative or not required by law. Electronically signed by: Pollo Olivares M.D. 01/02/2025 10:22 AM PG Care Time/CCT Total # of Minutes Spent Total Time Spent with Patient: Total time spent is greater than 50% in coordination of care (as documented) at patient's floor/unit and/or counseling patient: [place] [address] IN/OBS CONSULT LVL 5,80M Patient Type New Medical Decision Making High Complexity Diagnoses Intertrochanteric fracture of left femur S72.142A
--- NOTE | 2025-01-02 11:01 | Hospitalist Progress Note ---
Date of Service January 02, 2025 Assessment & Plan (1) Fall: (2) Intertrochanteric fracture of left femur: Plan: 79-year-old female with past medical history significant for type 2 diabetes, hyperlipidemia, hypothyroidism, CKD stage III, anemia, severe dementia coming from [facility] dementia unit with fall. Patient was found on the floor. As per the staff patient was laying there for few minutes. When they got her up she complained of the left hip pain when patient was sent to the ER. As per staff patient ambulates without support. Eats regular food. Oriented to name only. No recent fevers. No recent cough. No recent nausea or vomiting . No diarrhea. No complaint of any pain prior to the fall. Patient currently resting comfortably. Hemodynamics okay. Could tell her name. Mechanical Fall Intertrochanteric fracture of left proximal femur Patient presented with a mechanical fall CT of the hip showed comminuted intertrochanteric fracture of left proximal femur; Found to have intramuscular hemorrhage within left iliopsoas and adductor musculature Plan for surgery today by orthopedic; Plan for PT OT after surgery Pain control with scheduled Tylenol, prn Dilaudid. IV fluids Acute UTI Urinalysis positive for infection On ceftriaxone; follow-up on urine culture. Anemia- Will obtain CBC in a.m. Transfuse if hemoglobin is less than 7 Type 2 DM not on meds SSI Toño monitor Hypothyroidism on Levothyroxine-continue Severe Dementia Monitor for delerium Dvt Prophylaxis Scds on Right leg for now Furthe anticoagulation per Ortho. Please note the above document was generated using voice recognition software. It may contain grammatical, syntax or spelling errors. Any formal questions or concerns about the content, text or information contained within the body of this dictation should be directly addressed to the provider for clarification Admission and Anticipated Discharge Date Admission Date: January 02, 2025 Subjective Patient seen and examined at bedside. She is comfortable; not in any distress. Reports pain on the left hip. Review of Systems Review of Systems: All systems reviewed & are unremarkable except as noted in Subjective Physical Exam Physical Exam: General- Not in acute distress. Severe dementia Head- atraumatic Eyes- PERRL. ENT- oropharynx clear Lungs- clear to auscultation no wheezing or crackles Heart- regular rhythm; no murmur, no gallop. Abdomen- normal bowel sounds, soft, nontender, no distension Extremities- tenderness in left hip, Neuro- alert, oriented x 1; PERRL, no facial palsy; no dysarthria. Results & Data Results & Data Vital Signs (Past 12 Hours) Vital Signs Temp Pulse Pulse Resp BP BP Pulse Ox 01/02/25 07:08 36.5 C 83 16 99/65 L 96 01/02/25 02:25 37.0 C 80 18 125/83 96 01/02/25 01:29 80 18 101/64 97 01/02/25 00:00 84 18 134/78 99 01/01/25 23:09 80 99 O2 Del Method 01/02/25 07:08 Room Air 01/02/25 02:25 Room Air 01/02/25 01:29 Room Air 01/02/25 00:00 Room Air 01/01/25 23:09 Room Air
[2025-01-02] MEDS: ACETAMINOPHEN 1,000 MG/100 ML VIAL IV SCH (11:57)
--- NOTE | 2025-01-02 13:47 | Anesthesiology Consultation ---
Date of Service January 02, 2025 Assessment & Plan Chart Review Chart Review: Acceptable Risk for Surgery Consults Requested none History Surgery Operation Date: 01/02/25 14:10 Proposed Procedures p Left Long Troch Nail - Tato Dunaway MD Height/Weight Height: 5 ft 4 in Weight: 52.951 kg Allergies Allergy/AdvReac Type Severity Reaction Status Date / Time No Known Allergies Allergy Verified 01/01/25 23:39 Medications Home Medications Medication Instructions Recorded Confirmed Last Taken cholecalciferol (vitamin D3) 50 50 mcg PO QAM 10/01/24 01/01/25 01/01/25 mcg (2,000 unit) capsule (Vitamin D3) cyanocobalamin (vitamin B-12) 1,000 mcg PO QAM 10/01/24 01/01/25 01/01/25 1,000 mcg tablet (Vitamin B-12) ferrous sulfate 325 mg (65 mg 325 mg PO 3XWK 10/01/24 01/01/25 01/01/25 iron) tablet (FeroSul) levothyroxine 75 mcg tablet 75 mcg PO QAM 10/01/24 01/01/25 01/01/25 hydroxyzine HCl 25 mg tablet 25 mg PO BID 12/29/24 01/01/25 01/01/25 Active Medications Generic Name Dose Route Start Last Admin Trade Name Ruth PRN Reason Stop Dose Admin Cyanocobalamin 1,000 mcg 01/02/25 09:00 01/02/25 09:46 Cyanocobalamin (B-12) 500 Mcg Tablet PO 02/01/25 08:59 Not Given QAM THOMAS Hydromorphone HCl 0.25 mg 01/02/25 02:09 01/02/25 02:21 Hydromorphone Inj 0.5 Mg/0.5 Ml Syr IV 01/16/25 02:08 0.25 mg Q6H PRN Administration Pain Hydroxyzine HCl 25 mg 01/02/25 09:00 01/02/25 09:46 Hydroxyzine Hcl 25 Mg Tab PO 02/01/25 08:59 Not Given BID THOMAS Ceftriaxone Sodium 2,000 mg in 50 mls @ 100 mls/hr 01/02/25 08:00 01/02/25 10:16 Rocephin IV 01/07/25 07:59 Infused Q24H THOMAS Infusion Sodium Chloride 1,000 mls @ 80 mls/hr 01/02/25 08:00 01/02/25 08:24 Nss IV 01/05/25 07:59 80 mls/hr .[id number] THOMAS Administration Acetaminophen 1,000 mg in 100 mls @ 400 mls/hr 01/02/25 11:00 01/02/25 12:26 Ofirmev IV 01/05/25 10:59 Infused Q8H THOMAS Infusion Insulin Aspart 0 units 01/02/25 08:30 01/02/25 11:52 Insulin Aspart Per Unit Charge SC 02/01/25 08:29 Not Given Q6 THOMAS Levothyroxine Sodium 75 mcg 01/02/25 06:30 01/02/25 06:30 Levothyroxine Sodium 75 Mcg Tablet PO 02/01/25 06:29 75 mcg DAILYBB THOMAS Administration Vitamin D 50 mcg 01/02/25 09:00 01/02/25 09:46 Cholecalciferol 25 Mcg (1000 Units) Tab PO 02/01/25 08:59 Not Given QAM THOMAS NPO Date Last Intake of Fluids: 01/02/25 Time Last Intake of Fluids: 06:30 Last Intake of Fluids Comment: sip of water with med this am Last Intake of Solids Comment: unsure of last food- npo after midnight per report Social History Smoking Status: Unknown if ever smoked Smoking cigarettes per day: unable to obtain Physical Exam Vital Signs Last Vital Signs Temp 36.7 C 01/02/25 13:37 Pulse 90 01/02/25 13:37 Resp 20 01/02/25 13:37 BP 94/59 L 01/02/25 13:37 Pulse Ox 98 01/02/25 13:37 O2 Del Method Room Air 01/02/25 13:37 Testing Laboratory Results 01/02/25 05:33 01/02/25 05:33 PT 10.3 Seconds (9.0-12.0) 01/01/25 22:42 INR 1.0 (0.9-1.1) 01/01/25 22:42 APTT 23 Seconds (21-31) 01/01/25 22:42 Urine Color Yellow 01/02/25 00:15 Urine Appearance Clear (Clear) 01/02/25 00:15 Urine pH 7.5 (4.5-7.5) 01/02/25 00:15 Ur Specific [place] 1.017 (1.000-1.030) 01/02/25 00:15 Urine Protein Trace (Negative) H 01/02/25 00:15 Urine Glucose (UA) Negative (Negative) 01/02/25 00:15 Urine Ketones Negative (Negative) 01/02/25 00:15 Urine Nitrite Positive (Negative) A 01/02/25 00:15 Ur Leukocyte Esterase 2+ (Negative) H 01/02/25 00:15 Urine WBC (Auto) >50 /hpf (0-5) H 01/02/25 00:15 Urine RBC (Auto) >20 /hpf (0-2) H 01/02/25 00:15 U Hyaline Cast (Auto) 3-5 /lpf (0-2) H 01/02/25 00:15 U Epithel Cells (Auto) 0-2 /hpf (0-2) 01/02/25 00:15 Urine Bacteria (Auto) 4+ (None Seen) H 01/02/25 00:15 01/02/25 01/02/25 11:18 08:27 POC Glucose 103 H 156 H
[2025-01-02] MEDS ORDERED: ATROPINE SULFATE 0.1 MG/ML 10ML SYR IV PRN (14:08)
[2025-01-02] MEDS ORDERED: ROCURONIUM BROMIDE 10 MG/ML 5 ML VIAL IV ONE (14:17)
[2025-01-02] MEDS ORDERED: LIDOCAINE 2% 2 ML VIAL/AMP(20MG/ML) INFIL ONE (14:17)
[2025-01-02] MEDS ORDERED: GLYCOPYRROLATE 0.2 MG/ML VIAL ONE (14:17)
[2025-01-02] MEDS ORDERED: PROPOFOL IV EMULSION 10 MG/ML 20 ML VIAL IV ONE (14:17)
[2025-01-02] MEDS ORDERED: ONDANSETRON INJ 2 MG/ML 2 ML VIAL ONE (14:17)
[2025-01-02] MEDS ORDERED: DEXAMETHASONE SOD INJ 4 MG/ML VIAL ONE (14:17)
[2025-01-02] MEDS ORDERED: MIDAZOLAM HCL 1 MG/ML 2ML VIAL ONE (14:21)
[2025-01-02] MEDS ORDERED: SUGAMMADEX SODIUM 200 MG/2 ML VIAL IV ONE (14:22)
--- NOTE | 2025-01-02 14:33 | History & Physical Bridge Note ---
Date of Service January 02, 2025 History & Physical Bridge Note I have examined the patient, reviewed the History & Physical and in the interval since the performance of the History & Physical I have noted the following changes of clinical significance: no changes noted
[2025-01-02] MEDS: TRANEXAMIC ACID / 0.7% NACL 1000MG/100ML BAG IV ONE (14:37)
[2025-01-02] MEDS: TRANEXAMIC ACID / 0.7% NACL 1,000 MG/100 ML BAG IV ONE (14:37)
[2025-01-02] MEDS ORDERED: ceFAZolin 330 MG/ML 1 GM VIAL ONE (15:03)
[2025-01-02] MEDS: BUPIVACAINE/EPINEPHRINE 0.5% MPF 1:200,000 30 ML VIAL ONE (15:58)
--- NOTE | 2025-01-02 16:14 | Operative Report ---
PG Post Operative Report Pre & Post Diagnosis Operation Date: 01/02/25 14:10 Pre-Op Diagnosis: Intertrochanteric fracture of left femur. Post-Op Diagnosis: Intertrochanteric fracture of left femur. I identified the patient and participated in the time-out.: Yes Procedure Operation Date: 01/02/25 14:10 Actual Procedures p Left Long Intertrochanteric Nail(Left) - Tato Dunaway MD Surgeon Tato Dunaway MD Plant Protection Superintendent Facundo Velez PA-C Estimated Blood Loss 50 Findings Consistent with Post-Op Diagnosis Specimens None Anesthesia Type General Complications none Disposition Accompanied Patient To Recovery: No Indications Patient is a 79-year-old female with advanced dementia who sustained a mechanical fall recently. She was brought to emergency room where x-rays revealed a left intertrochanteric hip fracture. The patient was admitted by the hospitalist service, medically optimized and indicated for surgical repair. Description of Procedure Operative implants consists of: 1 Synthes left 340 mm x 10 mm long trochanteric nail. 2. 85 mm helical blade. 3. 34 mm x 5.0 mm distal interlocking screw. The patient was taken to the operating room, identified, and placed on the ope rating table in supine position. All contact areas were appropriately padded. IV antibiotics were followed by anesthesia team. A general anesthetic was implemented. The patient was then placed on the fracture table. The right leg was placed in a well-leg forbes and the left leg was placed in a boot traction. Longitudinal traction was applied to the left leg and the foot was internally rotated so that kneecap pointed to the ceiling. X-ray was brought in. I made some fine adjustments to this in order to anatomically aligned the fracture. The right hip and leg were then scrubbed with Hibiclens, prepped with ChloraPrep and draped in usual sterile fashion. A curvilinear incision was made just proximal to the tip of the trochanter. Sharp dissection was Through subcutaneous tissue down below the IT band/gluteal fascia. The gluteal fascia was incised longitudinally in line with the skin incision. A guidewire was placed just lateral to the tip of the trochanter and in line with the IM canal. This advanced under fluoroscopic guidance. It was overreamed with the large reamer. This guidewire was removed and a ball-tipped guidewire was placed down the canal. I measured and a 340 mm nail was selected. I then reamed beginning with 10 and I even got some chatter at a 10 so I reamed up to 11-1/2 and half millimeter increments. 340 x 10 mm long left trochanteric nail was then placed over the guidewire and tapped into position. The lateral aiming arm was attached. A stab incision was made in the lateral aiming arm was advanced to the lateral aspect of the femur. A guidewire was placed in the central aspect of the femoral head neck on both the AP and lateral planes. This was measured and an 85 mm helical blade was selected. The cortical step drill was used to breach the cortex and the triple reamer was set at 90 and I reamed to 90. An 85 mm helical blade was then placed over the guidewire and tapped into position. Some final x-rays were obtained. I did compress the fracture site. The proximal setscrew was then tightened. Some final x-rays were obtained. Attention then drawn toward distal interlocking. Using a perfect sokaogon technique a distal interlocking screw was placed in the dynamic hole. Stab incision was made and the drill was used to create the drill hole and a screw was placed. The final x-rays were obtained. Attention drawn toward closing. All wounds were irrigated extensively. I injected locally with 30 cc of half percent Marcaine with epinephrine. The gluteal fascia was then closed with #1 Vicryl suture in a running fashion. Subcutaneous tissues of all wounds were closed with 2 Dexon suture in a buried interrupted fashion skin was closed with skin joseph. Leg was then cleaned and dried and a sterile dressing was Xerofor m, 4 fours, ABD pad and foam tape was applied. The patient was then taken off the fracture table and brought out of general esthesia and transferred to the recovery room in stable condition. The patient tolerated the procedure well and there were no complications. Facundo Velez, my physician academic assistant, was present for the entire procedure. His assistance was required for proper patient positioning, prepping draping, surgical exposure, retraction, perform the technical details of the operation, placement of the implant, and closure of the incision site and placement of the postoperative sterile bandage. I attest to the content of the Intraoperative Record and any orders documented therein. Any exceptions are noted below.
--- NOTE | 2025-01-02 16:48 | Anesthesiology Progress Note ---
Date of Service January 02, 2025 Anesthesia Post Procedure Vital Signs Vital Signs: Temp Pulse Pulse Pulse Resp BP BP 01/02/25 16:35 100 H 19 01/02/25 16:25 100 H 18 01/02/25 16:15 36.6 C 103 H 24 01/02/25 13:37 36.7 C 90 20 01/02/25 07:08 36.5 C 83 16 99/65 L 01/02/25 02:25 37.0 C 80 18 125/83 01/02/25 01:29 80 18 101/64 01/02/25 00:00 84 18 134/78 01/01/25 23:09 80 01/01/25 22:47 81 01/01/25 22:29 80 16 124/52 L 01/01/25 22:29 36.7 C 80 16 124/52 L BP Pulse Ox O2 Del Method O2 Flow Rate 01/02/25 16:35 119/73 100 Room Air 01/02/25 16:25 101/66 100 Oxymask 4 01/02/25 16:15 100/57 L 100 Oxymask 8 01/02/25 13:37 94/59 L 98 Room Air 01/02/25 07:08 96 Room Air 01/02/25 02:25 96 Room Air 01/02/25 01:29 97 Room Air 01/02/25 00:00 99 Room Air 01/01/25 23:09 99 Room Air 01/01/25 22:47 01/01/25 22:29 99 Room Air 01/01/25 22:29 99 Room Air Pain Intensity Back: Pain Intensity: 5 Transfer of Care Handoff Completed per policy Notes Mental Status: alert / awake / arousable and participated in evaluation Patient Amnestic to Procedure: Yes Nausea / Vomiting: adequately controlled Pain: adequately controlled Airway Patency, RR, SpO2: stable & adequate BP & HR: stable & adequate Hydration State: stable & adequate Anesthetic Complications: no major complications apparent and Pt Satisfied with anesthetic care
--- NOTE | 2025-01-02 17:31 | XRay Report ---
EXAMINATION: X-ray femur left 2 view routine CLINICAL HISTORY: TFN postop PRIORS: None TECHNIQUE: Crosstable lateral portable FINDINGS: Large body habitus noted. Intramedullary femoral florentin noted with near anatomic alignment, no lucency or cortical disruption. Scattered skin joseph noted. Overlying medical tubing projects over the knee. No subcutaneous gas. IMPRESSION: Postsurgical change with no acute abnormality identified. Electronically signed by Vanessa Bruce 01-02-2025 5:30 PM
[2025-01-02] MEDS: ASPIRIN 81 MG ECTAB PO SCH (21:44)
[2025-01-03] MEDS: ACETAMINOPHEN 1,000 MG/100 ML VIAL IV PRN (06:33)
--- NOTE | 2025-01-03 08:15 | Fluoroscopy Report ---
FL femur LT 2V CLINICAL HISTORY: LEFT LONG TROCH NAIL COMPARISON STUDY: 01/01/2025 FLUOROSCOPY TIME: 66 seconds FLUOROSCOPY IMAGES: 5 EXPOSURE DOSE: 10 mGy FINDINGS: Fluoroscopy was provided for left femoral gamma nail. IMPRESSION: Intraoperative fluoroscopy. ACT 112: Negative or not required by law. Electronically signed by: Johnson Collier M.D. 01/03/2025 8:14 AM
--- NOTE | 2025-01-03 09:05 | Orthopedic Progress Note ---
Date of Service January 03, 2025 Assessment & Plan (1) Intertrochanteric fracture of left femur: * Continue Current Treatment * S/p left TFN * Weight bearing status: WBAT * Daily treatment: Physical Therapy/ Occupational Therapy per protocol * Pain control * Continue to monitor for ABLA * DVT prophylaxis, ok to resume from ortho standpoint * Disposition: TBD * Office/hospital f/u 2 weeks for progress check and staple/suture removal * Remainder care per primary team Subjective . Active Problems: S/p left TFN POD 1 79 y/o female s/p left TFN. Demented and provides little subjective input, but appears to be doing well overall, pain managed and improved function. Denies fever/chills, chest pain/SOB, nausea/vomiting. Otherwise no complaints. Review of Systems All systems reviewed & are unremarkable except as noted in HPI & below. Physical Exam . * General: Alert and oriented, no acute distress * Constitutional: well-developed, well-nourished. * Respiratory: Normal respiratory effort, no distress * Gastrointestinal: No tenderness to palpation, no rigidity or guarding. * Skin: No rash or lesion. * Neurologic: Grossly normal * Musculoskeletal: Left hip surgical dressing CDI, not removed for exam. Otherwise no obvious deformity or overlying skin changes. Diffuse TTP proximal thigh and hip region. Otherwise no specific tenderness of distal thigh, lower leg, foot/ankle. AROM hip flexion intact. AROM foot/ankle intact. Sensation intact plantar/dorsal foot. Brisk capillary refill. Results & Data Results & Data Laboratory Results . Diagnostic Findings . Femur X-Ray 01/02/25 00:00 FL femur LT 2V CLINICAL HISTORY: LEFT LONG TROCH NAIL COMPARISON STUDY: 01/01/2025 FLUOROSCOPY TIME: 66 seconds FLUOROSCOPY IMAGES: 5 EXPOSURE DOSE: 10 mGy FINDINGS: Fluoroscopy was provided for left femoral gamma nail. IMPRESSION: Intraoperative fluoroscopy. ACT 112: Negative or not required by law. Electronically signed by: Johnson Collier M.D. 01/03/2025 8:[address] 01/02/25 07:26 CT SCAN OF THE LEFT HIP WITHOUT IV CONTRAST CLINICAL HISTORY: Fall. Left femoral fracture. COMPARISON STUDY: Left hip x-rays dated 01/01/2025 TECHNIQUE: CT scan of the left hip is performed from the bony pelvis to the femoral shaft. Images are reviewed in the axial, sagittal, and coronal planes. IV contrast was not administered for this examination. 3-D reformats are created and assessed. A dose lowering technique was utilized adhering to the principles of ALARA. CT DOSE: 210.82 mGy.cm FINDINGS: The skeletal structures are osteopenic. There is an impacted and comminuted intertrochanteric fracture of the left femur which extends through the greater trochanter with large displaced fragments. There is also medial displacement of the lesser trochanter. There is surrounding edema/hemorrhage, with intramuscular hemorrhage identified in the left iliopsoas musculature as well as within the left adductor compartment. The visualized left bony pelvis appears intact. No lytic or blastic lesion is seen. There is no avascular necrosis of the left femoral head. Moderate osteoarthritic change is seen in the left hip. There is likely hemarthrosis of the left hip joint. The bladder is partially visualized and decompressed around a Sims catheter. The uterus is surgically absent. Diverticulosis is noted in the partially imaged sigmoid colon. There is no left pelvic sidewall or left inguinal lymphadenopathy. IMPRESSION: 1. Comminuted intertrochanteric fracture of the left proximal femur as detailed above with displaced fragments and surrounding hemorrhage. 2. The visualized left bony pelvis appears intact. 3. There is intramuscular hemorrhage within the left iliopsoas and adductor musculature. ACT 112: Negative or not required by law. Electronically signed by: Pollo Olivares M.D. 01/02/2025 10:22 AM Femur X-Ray 01/02/25 16:19 EXAMINATION: X-ray femur left 2 view routine CLINICAL HISTORY: TFN postop PRIORS: None TECHNIQUE: Crosstable lateral portable FINDINGS: Large body habitus noted. Intramedullary femoral florentin noted with near anatomic alignment, no lucency or cortical disruption. Scattered skin joseph noted. Overlying medical tubing projects over the knee. No subcutaneous gas. IMPRESSION: Postsurgical change with no acute abnormality identified. Electronically signed by Vanessa Bruce 01-02-2025 5:30 PM PG Care Time/CCT Total # of Minutes Spent Total Time Spent with Patient: Total time spent is greater than 50% in coordination of care (as documented) at patient's floor/unit and/or counseling patient: Coding Level of Care Code 77131 Post Operative Follow-Up Diagnoses Intertrochanteric fracture of left femur S72.142A
[2025-01-03] MEDS: FERROUS SULFATE 325 MG TAB PO SCH (09:45)
[2025-01-03 12:01] LABS: Anion Gap 4.0 (3-11); Blood Urea Nitrogen 29.0 mg/dl (6-23); Calcium 7.8 mg/dl (8.6-10.3); Carbon Dioxide 25.0 mmol/L (21-32); Chloride 110.0 mmol/L (98-107); Creatinine Clr Calc Pharmacy 28.3 ml/min; Glucose 137.0 mg/dl (70-99(Fasting)); Potassium 4.9 mmol/L (3.5-5.1); Sodium 139.0 mmol/L (136-145)
[2025-01-03 12:09] LABS: Hematocrit (blood only) 25.5 % (37.0-47.0); Hemoglobin 7.9 g/dl (12.0-16.0); Immature Granulocytes # (auto) 0.04 K/uL (0.01-0.20); Immature Granulocytes % (auto) 0.4 %; Mean Corpuscular Hemoglobin 29.3 pg (25.0-34.0); Mean Corpuscular Volume 94.4 fL (80.0-100.0); Platelet Count 222 K/uL (130-400); RDW Standard Deviation 52.9 fL (36.4-46.3); Red Blood Count 2.70 M/uL (4.20-5.40); White Blood Count 11.34 K/ul (4.8-10.8)
[2025-01-03 12:19] LABS: Prealbumin 10.2 mg/dl (20-40)
[2025-01-03 12:39] LABS: Ovalocytes 1+
[2025-01-03 12:55] LABS: Hemoglobin A1C 6.4 % (4.5-5.6)
--- NOTE | 2025-01-03 13:36 | Hospitalist Progress Note ---
Date of Service January 03, 2025 Assessment & Plan (1) Fall: (2) Intertrochanteric fracture of left femur: Plan: 79-year-old female with past medical history significant for type 2 diabetes, hyperlipidemia, hypothyroidism, CKD stage III, anemia, severe dementia coming from [facility] unit with fall. Patient was found on the floor. As per the staff patient was laying there for few minutes. When they got her up she complained of the left hip pain when patient was sent to the ER. As per staff patient ambulates without support. Eats regular food. Oriented to name only. No recent fevers. No recent cough. No recent nausea or vomiting . No diarrhea. No complaint of any pain prior to the fall. Patient currently resting comfortably. Hemodynamics okay. Could tell her name. Mechanical Fall Intertrochanteric fracture of left proximal femur Patient presented with a mechanical fall CT of the hip showed comminuted intertrochanteric fracture of left proximal femur; Found to have intramuscular hemorrhage within left iliopsoas and adductor musculature s/p Left Long Intertrochanteric Nail(Left) 01/02. Ortho on board, WBAT, ok for dvt px. c/w PT/OT per ortho recs. Pain control with scheduled Tylenol, prn Dilaudid. f/u w/ ortho on dc. c/w ivf as bp soft. Acute blood loss anemia: Admitting Hb of 10.8, post op Hb of 7.9, likely 2/2 perioprative blood loss and dilutional component. will repeat HnH again this afternoon, if continues to downtrend consider prbc transfusion. Hold on chemo DVT px if Hb continues to downtrend w/ afternoon HnH, monitor HnH. Acute UTI: Urinalysis positive for infection. On ceftriaxone 01/02, plan for 5 days; follow-up on urine culture. Type 2 DM: not on meds. SSI, A1c 6.4 this adm. Will monitor Hypothyroidism: on Levothyroxine-continue Severe Dementia: Monitor for delerium Dvt Prophylaxis: Scds , aspirin bid Please note the above document was generated using voice recognition software. It may contain grammatical, syntax or spelling errors. Any formal questions or concerns about the content, text or information contained within the body of this dictation should be directly addressed to the provider for clarification Admission and Anticipated Discharge Date Admission Date: January 02, 2025 Subjective Patient seen and examined at bedside. She is comfortable; not in any distress. Reports pain on the left hip under control. Physical Exam Physical Exam: General- Not in acute distress. Severe dementia, pleasant Head- atraumatic Eyes- PERRL. ENT- oropharynx clear Lungs- clear to auscultation no wheezing or crackles Heart- regular rhythm; no murmur, no gallop. Abdomen- normal bowel sounds, soft, nontender, no distension Extremities- tenderness in left hip, Neuro- alert, oriented x 1; PERRL, no facial palsy; no dysarthria. Results & Data Results & Data Vital Signs (Past 12 Hours) Vital Signs Temp Pulse Resp BP Pulse Ox O2 Del Method 01/03/25 11:09 36.4 C L 76 16 95/55 L 94 Room Air 01/03/25 07:13 36.7 C 69 16 91/55 L 98 Room Air 01/03/25 03:00 36.5 C 81 16 100/65 100 Room Air
[2025-01-03 15:12] LABS: Hematocrit (blood only) 26.0 % (37.0-47.0); Hemoglobin 8.2 g/dl (12.0-16.0)
[2025-01-04 07:17] VITALS: RESP 16
[2025-01-04 07:29] LABS: Hematocrit (blood only) 23.4 % (37.0-47.0); Hemoglobin 7.7 g/dl (12.0-16.0); Mean Corpuscular Hemoglobin 29.6 pg (25.0-34.0); Mean Corpuscular Volume 90.0 fL (80.0-100.0); Platelet Count 221 K/uL (130-400); RDW Standard Deviation 49.9 fL (36.4-46.3); Red Blood Count 2.60 M/uL (4.20-5.40); White Blood Count 8.97 K/ul (4.8-10.8)
[2025-01-04 07:49] LABS: Anion Gap 4.0 (3-11); Blood Urea Nitrogen 23.0 mg/dl (6-23); Calcium 7.9 mg/dl (8.6-10.3); Carbon Dioxide 25.0 mmol/L (21-32); Chloride 113.0 mmol/L (98-107); Creatinine Clr Calc Pharmacy 31.0 ml/min; Glucose 102.0 mg/dl (70-99(Fasting)); Potassium 4.3 mmol/L (3.5-5.1); Sodium 142.0 mmol/L (136-145)
--- NOTE | 2025-01-04 08:36 | Orthopedic Progress Note ---
Date of Service January 04, 2025 Assessment & Plan (1) Intertrochanteric fracture of left femur: * Continue Current Treatment * S/p left TFN * Weight bearing status: WBAT * Daily treatment: Physical Therapy/ Occupational Therapy per protocol * Pain control * Continue to monitor for ABLA * DVT prophylaxis, ok to resume from ortho standpoint * Disposition: TBD * Office/hospital f/u 2 weeks for progress check and staple/suture removal * Remainder care per primary team Subjective Active Problems: S/p left TFN POD 2 79 y/o female s/p left TFN. Demented and provides little subjective input, but appears to be doing well overall, pain managed and improved function. Denies fever/chills, chest pain/SOB, nausea/vomiting. Otherwise no complaints. Review of Systems All systems reviewed & are unremarkable except as noted in HPI & below. Physical Exam * Musculoskeletal: Left hip surgical dressing CDI, not removed for exam. Otherwise no obvious deformity or overlying skin changes. Diffuse TTP proximal thigh and hip region. Otherwise no specific tenderness of distal thigh, lower leg, foot/ankle. AROM hip flexion intact. AROM foot/ankle intact. Sensation intact plantar/dorsal foot. Brisk capillary refill. Results & Data Results & Data Laboratory Results . Diagnostic Findings . PG Care Time/CCT Total # of Minutes Spent Total Time Spent with Patient: Total time spent is greater than 50% in coordination of care (as documented) at patient's floor/unit and/or counseling patient: Coding Level of Care Code 69012 Post Operative Follow-Up Diagnoses Intertrochanteric fracture of left femur S72.142A
[2025-01-04 13:29] LABS: Hematocrit (blood only) 23.7 % (37.0-47.0); Hemoglobin 7.6 g/dl (12.0-16.0)
--- NOTE | 2025-01-04 14:17 | Discharge Summary ---
Date of Service January 04, 2025 Admission HPI Per Admitting Provider 79-year-old female with past medical history significant for type 2 diabetes, hyperlipidemia, hypothyroidism, CKD stage III, anemia, severe dementia coming from [facility] dementia unit with fall. Patient was found on the floor. As per the staff patient was laying there for few minutes. When they got her up she complained of the left hip pain when patient was sent to the ER. As per staff patient ambulates without support. Eats regular food. Oriented to name only. No recent fevers. No recent cough. No recent nausea or vomitings . No diarrhea. No complaint of any pain prior to the fall. Patient currently resting comfortably. Hemodynamics okay. Could tell her name. When asked other questions she is mumbling something else which seems to be baseline for her as per the [facility] staff. Past medical history. As mentioned above Past surgical history. Colonoscopy. EGD. Partial hysterectomy. Social history. No smoking. No alcohol use. No drug use. Family history. Father had lung cancer. Mother had diabetes. Heart disorder. Hyperlipidemia. Admission Exam Per Admitting Provider General- Not in acute distress. Severe dementia Head- atraumatic Eyes- PERRL. ENT- oropharynx clear Lungs- clear to auscultation no wheezing or crackles Heart- regular rhythm; no murmur, no gallop. Abdomen- normal bowel sounds, soft, nontender, no distension Extremities- no pretibial edema, Left leg seems shortened Neuro- alert, oriented x 1; PERRL, no facial palsy; no dysarthria. Principal Diagnosis IM Nailing of Left Hip Fracture Discharge Exam General- Not in acute distress. Severe dementia, pleasant Head- atraumatic Eyes- PERRL. ENT- oropharynx clear Lungs- clear to auscultation no wheezing or crackles Heart- regular rhythm; no murmur, no gallop. Abdomen- normal bowel sounds, soft, nontender, no distension Extremities- left hip dressing c/d/i Neuro- alert, oriented x 1; PERRL, no facial palsy; no dysarthria. Discharge Data Allergies Allergy/AdvReac Type Severity Reaction Status Date / Time No Known Allergies Allergy Verified 01/01/25 23:39 Consultations 01/02/25 00:09 ED Decision to Admit Stat 01/02/25 08:00 Consult Orthopedic Surgery Routine Procedures Performed Operation Date: 01/02/25 14:10 Actual Procedures p Left Long Intertrochanteric Nail(Left) - Tato Dunaway MD Ordered Studies 01/02/25 FL femur LT 2V Routine 01/02/25 07:26 CT hip LT wo con Urgent Hospital Course (1) Fall: (2) Intertrochanteric fracture of left femur: 79-year-old female with past medical history significant for type 2 diabetes, hyperlipidemia, hypothyroidism, CKD stage III, anemia, severe dementia coming from [facility] [place] with fall. Patient was found on the floor. As per the staff patient was laying there for few minutes. When they got her up she complained of the left hip pain when patient was sent to the ER. As per staff patient ambulates without support. Eats regular food. Oriented to name only. No recent fevers. No recent cough. No recent nausea or vomiting . No diarrhea. No complaint of any pain prior to the fall. Patient currently resting comfortably. Hemodynamics okay. Could tell her name. Mechanical Fall Intertrochanteric fracture of left proximal femur Patient presented with a mechanical fall CT of the hip showed comminuted intertrochanteric fracture of left proximal femur; Found to have intramuscular hemorrhage within left iliopsoas and adductor musculature s/p Left Long Intertrochanteric Nail(Left) 01/02. Ortho on board, WBAT, ok for dvt px. c/w PT/OT per ortho recs. Pain control with scheduled Tylenol, prn Dilaudid. f/u w/ ortho on dc. Acute blood loss anemia: Admitting Hb of 10.8, post op Hb of 7.9, likely 2/2 perioprative blood loss and dilutional component. will repeat HnH stable above 7.5, hemodynamics has improved. Monitor HnH closely on dc to ensure HnH stability. Acute UTI: Urinalysis positive for infection. On ceftriaxone 01/02, plan for 5 days; follow-up on urine culture. to po atb on dc. Type 2 DM: not on meds. SSI, A1c 6.4 this adm. Will monitor Hypothyroidism: on Levothyroxine-continue Severe Dementia: Monitor for delerium Dvt Prophylaxis: Scds , aspirin bid Patient is being discharged to [facility] with following instructions at the point of discharge: Follow-up with your primary care physician within a week time and likely you will need labs CBC/CMP/magnesium/phosphorus. Follow-up with orthopedics in 2 weeks. Have your blood level checked daily for 2 to 3 days to ensure hemoglobin stability. You will be discharged on antibiotic to complete course for UTI. Take your medications as prescribed. Please make sure that you are able to get your medications today by calling your pharmacy before you leave the hospital so that your treatment continuity is not broken. Please note the above document was generated using voice recognition software. It may contain grammatical, syntax or spelling errors. Any formal questions or concerns about the content, text or information contained within the body of t his dictation should be directly addressed to the provider for clarification Home Health Attestation I certify that this patient is under my care and that I, or a physicians assistant professor of german working with me, had a face to-face encounter that meets the home health [id number] encounter requirements with this patient. The encounter with the patient was in whole, or in part, for the following medical condition, which is the primary reason for home health care (list medical condition): I certify that, based on my findings, the following services are medically necessary home health services: My clinical findings support the need for the above services because: Further, I certify that my clinical findings support that this patient is homebound (i.e. absences from home require considerable and taxing effort and are for medical reasons or [employer] services or infrequently or of short duration when for other reasons) because: Certification for Home Health Services: Based on the above findings, I certify that this patient is confined to the home and needs intermittent usp care, physical therapy and/or speech therapy or continues to need occupational therapy. The patient is under my care, and I have initiated the establishment of the plan of care. This patient will be followed by a physician who will periodically review the plan of care. Total Time Total Time Spent Total Time Spent (In Minutes): 40 Discharge Plan Discharge Items Patient Disposition: Transfer Inpatient Rehab Fac Reason For Visit: FALL, HIP FRACTURE Discharge Diagnosis: IM Nailing of Left Hip Fracture Condition on Discharge: Serious Activity: Per Instructions section Weightbearing: Full weightbearing Non-emergency contact: Primary Care Provider Call non-emergency contact if: you have any medication questions Follow-up/Referrals: Tato Dunaway MD [Physician] - (Orthopedic follow-up 2-3 weeks from surgery date.) Becca Ng [Primary Care Provider] - Diet: Regular Addtl Attending Provider Instructions: May fully weightbear as tolerated Remove Proveena dressing after 7 days and replace with dry gauze or ABD pads ACTIVITY RECOMMENDATIONS: Diet: * You may resume previous diet. Physical Therapy: * Aggressive physical therapy is not usually needed. You will learn to take care of yourself safely and walk. * Follow the "Hip Precautions Instructions." * In some cases, the older adult social work specialist at the hospital will arrange to have a therapist come to your house for the first couple of weeks to help you learn these skills. * You need to practice on your own or with the help of a family member as needed. * When you learn these skills, most of the therapy can be done on your own. Home Exercise: * You were shown a series of exercises in the hospital. Do these exercises three to four times each day including the exercises you were shown in physical therapy. Walking: * Get up and walk several times each day. For the first four weeks, try not to stand or walk for more than one hour at a time. If you do stand or walk for more than one hour, you will not hurt anything, but your leg will likely swell. * As you feel comfortable, you may change from the walker or crutches to a cane and then to independent walking. MEDICATIONS: New Medicine: * You will likely be taking one or more of these medicines: 1. Tramadol - Take, as directed, when you need it, every six hours to control your pain. 2. Eliquis - Thins your blood to lessen the chance of forming a blood clot. * The most common side effects of pain medicine and iron are nausea and constipation. If nausea or constipation is too much of a problem or if you have any questions about your new medicines or doses, call [facility] at . We will try to help you manage these issues. "VERY IMPORTANT TO READ AND REVIEW" Pain: * The immediate post-operative period after hip replacement surgery is often quite painful. * You are given a prescription for pain medicine. You should take it, as directed, when you need it, especially before physical therapy and before going to bed. Pain that interferes with sleep is very common and can last several months. * You will likely need pain medicine for the first two to four weeks. It will not stop all of the pain. The pain will lessen and as you feel better, you may change to milder pain medicine such as Tylenol. * The most common side effects of pain medicine are nausea and constipation, so don't take more than you need. SPECIAL CARE INSTRUCTIONS: TEDs/Elastic Stockings: * The white elastic stockings help limit swelling and prevent blood clots from forming in your legs. The more you wear them, the more they work. * Wear them for six weeks. Incision Site Care: * Remove dressing postoperative day 2 and then shower. Keep direct shower pressure off the incision site. * After showering, cover tk with dry gauze and change daily or more frequently if the dressing is getting saturated with drainage. * May completely stop using bandage if wound is dry and no drainage * Tk are removed between 2 and 3 weeks post-op. If your follow-up appointment is made before 2 weeks, please have your appointment re- scheduled. It is too early to remove the tk. Prevention of Infection: * Take antibiotics one hour before any dental cleaning, dental work, urological procedure, gastrointestinal procedure or any invasive surgery in order to prevent your new joint from getting infected. * You may get the antibiotics from the doctor performing the procedure or you may call our office at before and we will call in a prescription to the pharmacy of your choice. Things to Watch For: * Drainage from the incision site that occurs more than one week after your surgery. * Severely increased leg pain or swelling. * Increased redness at the incision site. * Fever above 102 degrees Fahrenheit. * Unusual chest pain or shortness of breath. * Unusual pain or burning with urination. Call [facility] at with any of the above problems or if you have any questions about your medicines or recovery. FOLLOW UP VISIT: Make an appointment to see your doctor for approximately two weeks after surgery for a progress check and staple removal by calling the office at . Addtl Pick Pulling Machine Tender Provider Instructions: Follow-up with your primary care physician within a week time and likely you will need labs CBC/CMP/magnesium/phosphorus. Follow-up with orthopedics in 2 weeks. Have your blood level checked daily for 2 to 3 days to ensure hemoglobin stability. You will be discharged on antibiotic to complete course for UTI. Take your medications as prescribed. Please make sure that you are able to get your medications today by calling your pharmacy before you leave the hospital so that your treatment continuity is not broken. Pending Studies at Discharge: No Stand-Alone Forms: My [facility] Skilled Items Patient informed of condition?: Yes DNR: No Discharge Level of Care: Acute rehab Communicable Disease: No Discharge Prognosis: Stable Lines: None Urinary Catheter: No Medications and DC Order Prescriptions: New aspirin 81 mg Tablet,Delayed Release (Dr/Ec) 81 mg PO BID 35 Days Qty: 70 0RF cefdinir 300 mg capsule 300 mg PO DAILY 2 Days Qty: 2 0RF Continued cyanocobalamin (vitamin B-12) [Vitamin B-12] 1,000 mcg Tablet 1,000 mcg PO QAM levothyroxine 75 mcg tablet 75 mcg PO QAM ferrous sulfate [FeroSul] 325 mg (65 mg iron) Tablet 325 mg PO [id number] Rx Instructions: MON, WED, & FRI cholecalciferol (vitamin D3) [Vitamin D3] 50 mcg (2,000 unit) Capsule 50 mcg PO QAM hydroxyzine HCl 25 mg tablet 25 mg PO BID Discharge Orders: Discharge Order (Routine); Ordered 01/04/25 Ordered By: Francis Monroe Admission Data Admit Date/Time: 01/02/25 01:03 Attending Provider: Francis Monroe Admit Provider: Jhon Champion Primary Care Provider: Becca Ng Other Providers: Jhon Champion; Gonzalo Gill
[2025-01-04 15:15] VITALS: BP 118/70; PULSE 82; TEMP 97.9; O2SAT 96
--- NOTE | 2025-01-05 15:32 | Electrocardiogram Report ---
Test Reason : Blood Pressure : */* mmHG Vent. Rate : 84 BPM Atrial Rate : 84 BPM P-R Int : 150 ms QRS Dur : 72 ms QT Int : 350 ms P-R-T Axes : 69 33 83 degrees QTcB Int : 413 ms Normal sinus rhythm Low voltage QRS Borderline ECG When compared with ECG of 09-Nov-2024 08:27, Premature atrial complexes are no longer Present Minimal criteria for Inferior infarct are no longer Present Nonspecific T wave abnormality no longer evident in Inferior leads Confirmed by Thiago Jose ([id number]) on 01/05/2025 3:31:38 PM Referred By: REFERRED SELF Confirmed By: Thiago Jose
== END 2025-01-04 16:35 | DRG 481 ==
LOC: ED 22:19 → 3E 01-02 01:03 → SUATTDRO 01-02 01:03 → 3E 01-02 01:29

== ENCOUNTER 2025-01-19 16:05 | Inpatient (IN) ==
--- NOTE | 2025-01-19 16:18 | Emergency Department Note ---
Impression & Plan Recurrent falls, Hyperkalemia, Dementia due to Alzheimer's disease, Acute pain of left hip, Left arm pain ED Provider Note CHIEF COMPLAINT: Fall HISTORY OF PRESENTING ILLNESS: This 79-year-old female presents to the emergency department via EMS from [facility] for evaluation after a fall. The patient apparently had a witnessed ground-level fall. [facility] staff note that she has a hematoma to her head and she is complaining of left hip pain as well as left arm pain. The patient has had multiple recent falls and also had a recent left femur fracture repair. The patient is on aspirin, but no other blood thinners. The patient is at her baseline dementia per [facility] staff. The patient is a poor historian and unable to give any additional history. The patient was admitted on 01/02/[address] scan of the hip showed a comminuted intertrochanteric fracture of the left proximal femur as well as an intramuscular hemorrhage within the left iliopsoas and abductor musculature. The patient had surgical repair of the fracture on 01/02/2025 by orthopedics. The patient was then seen in the ER on 01/13/2025 after another fall. X-rays of the left femur and right hip showed no acute fractures. CT scan of the head and cervical spine were negative. Laboratory studies without concerning abnormality. The patient was discharged back to [facility]. The patient was seen again on 01/14/2025 and 01/16/2025 after additional falls. Imaging studies and blood work during those visits were unremarkable as well. REVIEW OF SYSTEMS: See HPI for pertinent positives and pertinent negatives. ALLERGIES: NKDA MEDICATIONS: See below PAST MEDICAL HISTORY: See below PHYSICAL EXAM: VITALS: Vitals are noted on the nurse's note and reviewed by myself. GENERAL: No acute distress, non-diaphoretic. SKIN: The skin was without obvious lacerations or abrasions. The patient has ecchymosis in different stages of healing to her left humerus and left forearm. The patient has multiple stapled incisions to the lateral aspect of the left lower extremity from her previous surgery without signs of infection. Capillary reflex less than 2 seconds. HEAD: Normocephalic. I do not see or feel any hematoma on my exam. No scalp tenderness or step-offs felt. EARS: Bilateral external auditory canals clear without tragus tenderness. Bilateral tympanic membranes pearly law without erythema or effusion. No mastoid tenderness bilaterally. No hemotympanum. No henry sign. EYES: Pupils equal round and reactive to light and accommodation. Conjunctivae without injection, sclerae without icterus. Extraocular movements intact. No nystagmus. NOSE: Patent without discharge. No sinus tenderness. No septal hematoma or bleeding. FACE: No facial bone tenderness. Full range of motion of the jaw without tenderness. MOUTH: Mucous membranes moist. Pharynx without erythema or exudate. Uvula midline. Airway patent. Tongue does not deviate. NECK: Supple without nuchal rigidity. Cervical spine is nontender. Full range of motion of the neck without tenderness. HEART: Regular rate and rhythm without murmurs gallops or rubs. LUNGS: Clear to auscultation bilaterally without wheezes, rales or rhonchi. No retractions or accessory muscle use. CHEST: No chest wall tenderness. ABDOMEN: Positive bowel sounds x 4. Normal tympanic percussion. Soft, nontender, without masses or organomegaly. No guarding or rebound tenderness. MUSCULOSKELETAL: No tenderness of the thoracic or lumbar spine. No tenderness with pelvic rocking. The patient is mildly tender to palpation over the areas of ecchymosis to the left humerus and left forearm. She is maximally tender to palpation over the lateral aspect of the left hip as well as the left femur. The patient does have somewhat limited range of motion of the left hip and lower extremity secondary to pain and her recent surgery. Full range of motion of the left upper extremity. Full range of motion for her age without tenderness to palpation in all remaining extremities. Peripheral pulses 2+ and equal in the bilateral upper and lower extremities.. NEURO: Patient was alert and oriented to person place and time. Normal mental status exam. Normal sensation to light and sharp touch. Negative Romberg and pronator drift. Cerebellar function intact. No focal neurological deficits. DIFFERENTIAL DIAGNOSIS: Differential diagnosis includes concussion, contusion, fracture, subluxation, dislocation, subdural hematoma, epidural hematoma, intraparenchymal hemorrhage, contusion, ligamentous injury, neurovascular, compartment syndrome, rhabdomyolysis, intra-abdominal injury, splenic rupture, hepatic rupture, rib fractures, cardiac contusion, pneumothorax, hemothorax, cardiac tamponade, intrathoracic injury, neurologic, as well as other pathologies. ED COURSE AND MEDICAL DECISION MAKING: HISTORY FROM INDEPENDENT HISTORIAN: The patient is a poor historian secondary to her dementia. All history is obtained from EMS and nursing staff at [facility]. I also spoke with the patient's brother Tato Davis. MEDICATIONS GIVEN: 500 mL normal saline solution bolus. Tylenol 1000 mg IV. Droperidol 1.25 mg IV x 2 MONITOR: Continuous equipment monitor phototypesetting: Order was placed for continuous equipment monitor phototypesetting. Patient was placed on the equipment monitor phototypesetting and continuous pulse ox. Patient was noted to be in normal sinus rhythm at an initial rate of 80 bpm per my interpretation. EKG: EKG was interpreted by myself as normal sinus rhythm at 70 bpm with no acute ST or T wave changes and no significant change from her previous EKG. INTERPRETATION OF LABS: I interpreted the labs with full lab results as below in the lab section of this note. Laboratory results pertinent to the emergent complaint are discussed in the MDM section below. The patient was advised to follow up with their PCP and/or specialist(s) for further outpatient monitoring and management of any abnormal results. INTERPRETATION OF IMAGING: Imaging studies were interpreted by myself and read by radiology as per the imaging section of this note. The patient was advised to follow up with their PCP and/or specialist(s) for further outpatient management of any non-emergent abnormal findings. Chest x-ray showed no obvious acute abnormality. Pelvis x-ray showed internal fixation of the left femur with left worse than right hip osteoarthritis, but no acute fractures. X-rays of the left femur show an internal fixation of the left femur and osteoarthritis, but no acute abnormalities or fractures. X-rays of the left forearm and humerus show no acute fracture or dislocation, but there is acromioclavicular osteoarthritis. CT scan of the head without contrast showed cerebral atrophy and chronic small vessel ischemic disease. No acute intracranial abnormalities. CT scan of the cervical spine without contrast showed no acute fracture or subluxation. There is mild spinal stenosis at C5/6 and C6/7. Left C6/7 neuroforaminal narrowing that may affect the left C7 nerve root. CT scan of the chest, abdomen, and pelvis with IV contrast showed no acute traumatic abnormalities. No acute cardiopulmonary etiology. There is mild right hydronephrosis with no clear obstructing lesion identified and this may be chronic secondary to prior obstruction or reflux. Diverticulosis without diverticulitis. EXTERNAL RECORDS REVIEWED: I reviewed the patient's most recent records including her admission for the femoral fracture status post surgical repair as well as her most recent multiple ER visits for falls. CHRONIC MEDICAL/SOCIAL CONDITIONS AFFECTING CARE: Dementia CONSULTATIONS: On-call hospitalist MDM SUMMARY: I examined the patient. The [facility] The patient did not have loss of consciousness and she is not on blood thinners. The patient is complaining of left hip pain as well as left arm pain. The patient had a recent left femoral hip fracture status post surgical repair followed by multiple additional falls after discharge as summarized above. The patient surgical incisions appear to be healing well with joseph still in place, but no evidence for infection. The patient also has areas of bruising to the left arm in different stages of healing. No other obvious evidence for trauma on exam. An IV lock was placed and labs were drawn. The patient was given IV fluids as well as IV Tylenol. White blood cell count elevated at 10.91. Hemoglobin low, but improved at 10.4. Platelet count elevated at 512. Coags were normal. Potassium was elevated at 5.6 with repeat potassium improved to 4.0 after IV fluids. Sodium normal at 139 and magnesium was normal as well. Creatinine was elevated at 1.31 with normal BUN of 22. Alk phos 126, but CMP otherwise without concerning abnormalities. Lipase was normal. High-sensitivity troponin was normal. CPK was normal at 39. Multiple imaging studies as above showed no obvious acute traumatic injury. The patient did become significantly agitated at times during the emergency department and was pulling out her IV site and was trying to get out of bed without assistance. I had a meaningful discussion about this patient with Dr. Braxton who agrees with my assessment and the treatment plan. The patient was given droperidol 1.25 mg IV followed by second dose of droperidol 1.25 mg IV with improvement in her condition. The patient's potassium is elevated at 5.6 and she has had multiple recent falls since her left hip surgery [facility]. Therefore, we feel the patient would benefit from admission for further management. I spoke with the patient's brother Tato davis who agrees with admission. I spoke with the on-call hospitalist who agreed to admit the patient for further evaluation and treatment. Please refer to their dictation for further details. The patient's care was transferred in stable condition. DIAGNOSIS: Fall with multiple recent falls Hyperkalemia Left arm pain and ecchymosis Left hip pain Past Med/Surg History Problem List (Updated 01/21/25 @ 18:31 by Aide Keys PA-C) Left arm pain (Acute) Acute pain of left hip (Acute) Recurrent falls (Acute) Hydronephrosis, right Hyperkalemia (Acute) Hip pain, left (Acute) Dementia (Acute) Fall (Acute) Post-op pain (Acute) Anemia (Acute) Fall (Acute) Acute hip pain (Acute) Acute leg pain (Acute) Fall (Acute) Intertrochanteric fracture of left femur Acute UTI (Acute) Fall (Acute) Hypothyroid Dementia due to Alzheimer's disease (Acute) Acute pain of right hip (Acute) Head injury (Acute) Fall (Acute) Ambulatory dysfunction (Acute) Medical History (Updated 01/21/25 @ 18:31 by Aide Keys PA-C) Anemia CKD (chronic kidney disease), stage III Hyperlipidemia Diabetes mellitus type 2, controlled Surgical History (Updated 01/11/25 @ 13:27 by Carmen Gooden RN) Hip joint replacement status History of partial hysterectomy Hx of esophagogastroduodenoscopy Hx of colonoscopy Family History (Updated 01/11/25 @ 13:28 by Carmen Gooden RN) Father Lung cancer Mother Diabetes Heart disease Social History Smoking Status: Unknown if ever smoked Cigarettes Per Day: unable to obtain; Hx Substance Use: No (unable to obtain) Preferred Language: Faroese Communication Ability: Impaired Communication Ability Comment: severe dementia Airport Screener Required: No Beliefs That Will Affect Care: None Current Living Situation: Foster Care, Correction and Other Current Living Situation Comment: [facility] Feels Safe at Home: Yes Assistive Devices: Bedside Commode and Wheelchair Allergies Allergies Allergy/AdvReac Type Severity Reaction Status Date / Time No Known Allergies Allergy Verified 01/19/25 21:23 Home Meds Home Medications Medication Instructions Recorded Confirmed cholecalciferol (vitamin D3) 50 50 mcg PO QAM 10/01/24 01/19/25 mcg (2,000 unit) capsule (Vitamin D3) cyanocobalamin (vitamin B-12) 1,000 mcg PO QAM 10/01/24 01/19/25 1,000 mcg tablet (Vitamin B-12) ferrous sulfate 325 mg (65 mg 325 mg PO 3XWK 10/01/24 01/19/25 iron) tablet (FeroSul) levothyroxine 75 mcg tablet 75 mcg PO QAM 10/01/24 01/19/25 hydroxyzine HCl 25 mg tablet 25 mg PO BID 12/29/24 01/19/25 acetaminophen 500 mg tablet 1,000 mg PO Q8H 01/19/25 01/19/25 (Tylenol Extra Strength) polyethylene glycol 3350 17 17 g PO DAILY PRN Constipation 01/19/25 01/19/25 gram/dose oral powder (Miralax) quetiapine 25 mg tablet 12.5 mg PO BID 01/19/25 01/19/25 sennosides 8.6 mg tablet (senna) 8.6 mg PO DAILYBB 01/19/25 01/19/25 Previous Rx's Medication Instructions Recorded aspirin 81 mg tablet,delayed 81 mg PO BID 35 days #70 tabs 01/04/25 release tramadol 50 mg tablet 50 mg PO Q6H PRN pain #12 tabs 01/19/25 Results & Data (ED) Vital Signs Vital Signs - 24 hr 01/19/25 16:26 01/19/25 16:33 Pulse Rate 75 76 Respiratory Rate 18 Blood Pressure 136/78 Blood Pressure Mean 97 Pulse Oximetry 92 Oxygen Delivery Method Room Air Sepsis Recent Fever Within 48 Hours No Sepsis New/Unexplained Change in Mental Status N/A Sepsis Action Taken by Nursing No Action Required Laboratory Data 01/21/25 08:52 01/21/25 08:52 Lab Results 01/19/25 01/19/25 Range/Units 16:50 17:02 WBC 10.91 H (4.8-10.8) K/ul RBC 3.38 L (4.20-5.40) M/uL Hgb 10.4 L (12.0-16.0) g/dl POC Hgb 10.5 L (12.0-16.0) g/dl Hct 31.5 L (37.0-47.0) % POC Hct 31 L (37-47) % MCV 93.2 (80.0-100.0) fL MCH 30.8 (25.0-34.0) pg MCHC 33.0 (32.0-36.0) g/dL RDW Std Deviation 58.6 H (36.4-46.3) fL RDW Coeff of Walker 17.2 H (11.5-14.5) % Plt Count 512 H (130-400) K/uL MPV 9.2 L (9.4-12.4) fL Immature Gran % (Auto) 0.3 % Neut % (Auto) 71.4 % Lymph % (Auto) 19.3 % Mcdonough % (Auto) 6.7 % Eos % (Auto) 1.8 % Baso % (Auto) 0.5 % Neut # (Auto) 7.79 H (1.40-6.50) K/uL Lymph # (Auto) 2.11 (1.20-3.40) K/uL Mcdonough # (Auto) 0.73 H (0.11-0.59) K/uL Eos # (Auto) 0.20 (0.00-0.50) K/uL Baso # (Auto) 0.05 (0.00-0.20) K/uL Immature Gran # (Auto) 0.03 (0.01-0.20) K/uL PT 10.3 (9.0-12.0) Seconds INR 1.0 (0.9-1.1) APTT 25 (21-31) Seconds PTT Ratio 0.9 POC Sodium 139 (135-144) mmol/L Sodium 139 (136-145) mmol/L POC Potassium 5.6 H (3.3-5.0) mmol/L Potassium 5.6 H (3.5-5.1) mmol/L POC Chloride 105 (101-112) mmol/L Chloride 106 (98-107) mmol/L Carbon Dioxide 29 (21-32) mmol/L POC Total CO2 26 (24-31) mmol/L Anion Gap 4 (3-11) POC Anion Gap 16.0 (16-25) mmol/L POC BUN 22 H (7-18) mg/dl BUN 22 (6-23) mg/dl Creatinine 1.31 H (0.6-1.2) mg/dl POC Creatinine 1.5 H (0.6-1.3) mg/dl Est Cr Clr Drug Dosing 33.1 ml/min eGFR 41.70 BUN/Creatinine Ratio 16.8 (10-20) Glucose 109 H (70-99(Fasting)) mg/dl POC Glucose (other) 106 H (70-99) mg/dl Calcium 8.8 (8.6-10.3) mg/dl POC Ioniz Calcium Marce 1.17 (1.12-1.32) mmol/l Magnesium 1.9 (1.7-2.4) mg/dl Total Bilirubin 0.5 (0.2-1.0) mg/dl AST 17 (13-39) U/L ALT 10 (7-52) U/L Alkaline Phosphatase 126 H (34-104) U/L Total Creatine Kinase 39 (26-192) U/L Troponin I High Sens 4.6 (0-14) pg/ml Total Protein 6.2 (6.0-8.3) gm/dl Albumin 3.1 L (3.4-5.0) gm/dl Globulin 3.1 (2.5-4.0) gm/dl Albumin/Globulin Ratio 1.0 (0.9-2) Lipase 25 (11-82) U/L Administered Medications Acetaminophen (Acetaminophen 500 Mg Tab) 1,000 mg PO Q8H THOMAS Stop: 02/18/25 22:59 Last Admin: 01/21/25 17:09 Dose: 1,000 mg Documented By: [facility] [place] Admin: 01/21/25 09:46 Dose: Not Given Documented By: [facility] [place] Admin: 01/21/25 01:30 EST Dose: Not Given Documented By: Admin: 01/20/25 17:16 Dose: 1,000 mg Documented By: rar Admin: 01/20/25 08:50 Dose: 1,000 mg Documented By: Admin: 01/20/25 02:26 Dose: Not Given Documented By: BENJAMIN Cyanocobalamin (Cyanocobalamin (B-12) 500 Mcg Tablet) 1,000 mcg PO QAM THOMAS Stop: 02/19/25 08:59 Last Admin: 01/21/25 09:47 Dose: Not Given Documented By: Admin: 01/20/25 08:50 Dose: 1,000 mcg Documented By: AAMIR Heparin Sodium (Porcine) (Heparin Sod 5,000 Unit/0.5 Ml Vial) 5,000 units SQ Q12 THOMAS Stop: 02/19/25 20:59 Last Admin: 01/21/25 09:47 Dose: Not Given Documented By: [facility] [place] Admin: 01/20/25 21:37 Dose: 5,000 units Documented By: RENAE Hydroxyzine HCl (Hydroxyzine Hcl 25 Mg Tab) 25 mg PO BID THOMAS Stop: 02/19/25 08:59 Last Admin: 01/21/25 09:47 Dose: Not Given Documented By: Admin: 01/20/25 21:37 Dose: 25 mg Documented By: Admin: 01/20/25 08:50 Dose: 25 mg Documented By: AAMIR Insulin Aspart (Insulin Aspart Per Unit Charge) 0 units SC ACHS THOMAS Stop: 02/19/25 06:23 Last Admin: 01/21/25 18:06 Dose: 1 units Documented By: DARRIN Co-signed By: PUSHPA Admin: 01/21/25 12:46 Dose: Not Given Documented By: [facility] [place] Admin: 01/21/25 08:56 Dose: Not Given Documented By: Admin: 01/20/25 21:37 Dose: Not Given Documented By: Admin: 01/20/25 19:48 Dose: Not Given Documented By: Admin: 01/20/25 13:47 Dose: Not Given Documented By: AAMIR Co-signed By: BLANCA Admin: 01/20/25 08:40 Dose: Not Given Documented By: AAMIR Co-signed By: BLANCA Admin: 01/20/25 08:39 Dose: Not Given Documented By: AAMIR Co-signed By: BLANCA Levothyroxine Sodium (Levothyroxine Sodium 75 Mcg Tablet) 75 mcg PO DAILYBB THOMAS Stop: 02/19/25 06:29 Last Admin: 01/21/25 05:55 Dose: Not Given Documented By: Admin: 01/20/25 08:50 Dose: 75 mcg Documented By: AAMIR Olanzapine (Olanzapine 10 Mg/2.1 Ml Sdv) 2.5 mg IM Q4H PRN PRN Reason: Agitation Stop: 02/18/25 20:15 Last Admin: 01/20/25 03:54 Dose: 2.5 mg Documented By: BENJAMIN Quetiapine Fumarate (Quetiapine Fumarate 25 Mg Tablet) 12.5 mg PO DAILY THOMAS Stop: 02/19/25 08:59 Last Admin: 01/20/25 08:50 Dose: 12.5 mg Documented By: AAMIR Sennosides (Senna 8.6 Mg Tab) 8.6 mg PO DAILYBB THOMAS Stop: 02/19/25 06:29 Last Admin: 01/21/25 05:39 Dose: Not Given Documented By: Admin: 01/20/25 08:50 Dose: 8.6 mg Documented By: AAMIR Discontinued Medications Dextrose (Dextrose 50% 50 Ml Syringe) 50 ml IV NOW ONE Stop: 01/19/25 20:19 Last Admin: 01/19/25 21:32 Dose: 50 ml Documented By: RUDI Dextrose (Dextrose 50% 50 Ml Syringe) 25 ml IV NOW STA Stop: 01/20/25 00:15 Last Admin: 01/20/25 01:37 Dose: Not Given Documented By: BENJAMIN Droperidol (Droperidol 5 Mg/2 Ml Vial) 1.25 mg IV ONE STA Stop: 01/19/25 19:16 Last Admin: 01/19/25 19:26 Dose: 1.25 mg Documented By: CHARIS Droperidol (Droperidol 5 Mg/2 Ml Vial) 1.25 mg IV ONE STA Stop: 01/19/25 20:15 Last Admin: 01/19/25 20:28 Dose: 1.25 mg Documented By: CHARIS Acetaminophen (Ofirmev) 1,000 mg in 100 mls @ 400 mls/hr IV NOW STA Stop: 01/19/25 16:37 Last Infusion: 01/19/25 17:30 Dose: Infused Documented By: Admin: 01/19/25 17:02 Dose: 400 mls/hr Documented By: CHARIS Sodium Chloride (Nss) 500 mls @ 999 mls/hr IV .[id number] ONE Stop: 01/19/25 16:53 Last Infusion: 01/19/25 17:30 Dose: Infused Documented By: Admin: 01/19/25 17:04 Dose: 999 mls/hr Documented By: CHARIS Sodium Chloride (Nss) 1,000 mls @ 75 mls/hr IV .[id number] ONE Stop: 01/20/25 09:38 Last Infusion: 01/20/25 17:17 Dose: Infused Documented By: Infusion: 01/20/25 04:13 Dose: 75 mls/hr Documented By: Infusion: 01/20/25 03:00 Dose: 0 mls/hr Documented By: Infusion: 01/20/25 01:00 Dose: 75 mls/hr Documented By: Infusion: 01/19/25 21:01 Dose: 0 mls/hr Documented By: Admin: 01/19/25 20:46 Dose: 75 mls/hr Documented By: CHARIS Dextrose/Sodium Chloride (D5w And 1/2nss) 1,000 mls @ 80 mls/hr IV .[id number] ONE Stop: 01/21/25 02:01 Last Infusion: 01/21/25 06:18 Dose: Infused Documented By: Admin: 01/20/25 18:47 Dose: 80 mls/hr Documented By: lisha Insulin Human Regular (Novolin-R Insulin Per Unit Charge) 5 units IV NOW STA Stop: 01/19/25 20:19 Last Admin: 01/19/25 21:31 Dose: 5 units Documented By: RUDI Co-signed By: CHARIS Ioversol (Optiray 320 100ml) 90 ml IV ONCE ONE Stop: 01/19/25 18:08 Last Admin: 01/19/25 18:07 Dose: 90 ml Documented By: EDWARD Quetiapine Fumarate (Quetiapine Fumarate 25 Mg Tablet) 12.5 mg PO BID THOMAS Stop: 02/18/25 22:29 Last Admin: 01/20/25 02:27 Dose: Not Given Documented By: BENJAMIN Sodium Bicarbonate (Sodium Bicarb 8.4% Inj 50 Meq/50 Ml Syr) 50 meq IV NOW STA Stop: 01/19/25 20:19 Last Admin: 01/19/25 21:31 Dose: 50 meq Documented By: RUDI Discharge Plan Visit Data Chief Complaint: Fall Stated Complaint: FALL, HEMATOMA TO HEAD ED Provider: Chavez Braxton ED Midlevel Provider: Aide Keys Discharge Problem: Recurrent falls, Hyperkalemia, Dementia due to Alzheimer's disease, Acute pain of left hip, Left arm pain Patient Disposition: Admitted As Inpatient Condition: Fair Discharge Instructions Interventions: ED Discharge Assessment Last Done: 01/20/25 06:00
[2025-01-19] MEDS: ACETAMINOPHEN 1,000 MG/100 ML VIAL IV STA (17:02)
[2025-01-19 17:03] LABS: Hematocrit (blood only) 31.5 % (37.0-47.0); Hemoglobin 10.4 g/dl (12.0-16.0); Immature Granulocytes # (auto) 0.03 K/uL (0.01-0.20); Immature Granulocytes % (auto) 0.3 %; Mean Corpuscular Hemoglobin 30.8 pg (25.0-34.0); Mean Corpuscular Volume 93.2 fL (80.0-100.0); Platelet Count 512 K/uL (130-400); RDW Standard Deviation 58.6 fL (36.4-46.3); Red Blood Count 3.38 M/uL (4.20-5.40); White Blood Count 10.91 K/ul (4.8-10.8)
[2025-01-19] MEDS: SODIUM CHLORIDE 0.9% 500 ML IV ONE (17:04)
[2025-01-19 17:22] LABS: Alanine Aminotransferase 10.0 U/L (7-52); Albumin Globulin Ratio 1.0 (0.9-2); Albumin Level 3.1 gm/dl (3.4-5.0); Alkaline Phosphatase 126.0 U/L (34-104); Anion Gap 4.0 (3-11); Bilirubin,Total 0.5 mg/dl (0.2-1.0); Blood Urea Nitrogen 22.0 mg/dl (6-23); Calcium 8.8 mg/dl (8.6-10.3); Carbon Dioxide 29.0 mmol/L (21-32); Chloride 106.0 mmol/L (98-107); Creatine Kinase 39.0 U/L (26-192); Creatinine Clr Calc Pharmacy 33.1 ml/min; Globulin 3.1 gm/dl (2.5-4.0); Glucose 109.0 mg/dl (70-99(Fasting)); Lipase 25.0 U/L (11-82); Magnesium 1.9 mg/dl (1.7-2.4); Potassium 5.6 mmol/L (3.5-5.1); Sodium 139.0 mmol/L (136-145); Total Protein 6.2 gm/dl (6.0-8.3)
[2025-01-19 17:37] LABS: INR 1.0 (0.9-1.1); Partial Thromboplastin Time 25 Seconds (21-31); Prothrombin Time 10.3 Seconds (9.0-12.0)
[2025-01-19] MEDS: OPTIRAY 320 100ml IV ONE (18:07)
--- NOTE | 2025-01-19 18:55 | XRay Report ---
Clinical History: Trauma Technique: A frontal view of the chest was obtained Findings: There are no confluent pulmonary infiltrates. The heart size is within normal limits. No pleural effusion or pneumothorax is seen. There is no definite pulmonary nodule. No fracture is noted. No foreign body is seen Impression: No active disease Electronically signed by Júnior Leos 01-19-2025 6:55 PM
--- NOTE | 2025-01-19 18:57 | XRay Report ---
Clinical History: Trauma 5 views of the femur submitted for review. Findings: There is internal fixation of a left femoral neck fracture with a fixation florentin and screws. There is a displaced lesser trochanter fracture fragment. There is mild to moderate severity left hip osteoarthritis. There is also left knee osteoarthritis. No other osseous abnormality is identified. There are surgical skin joseph laterally Impression: 1. Internal fixation of the left femur 2. Osteoarthritis Electronically signed by Júnior Leos 01-19-2025 6:57 PM
--- NOTE | 2025-01-19 18:57 | XRay Report ---
Clinical History: Trauma 2 views of the forearm are submitted for review. Findings: No fracture or dislocation is seen. No significant arthritic changes are noted. No other osseous abnormality is identified. There are no radiopaque foreign bodies. Impression: Unremarkable radiographs of the left forearm Electronically signed by Júnior Leos 01-19-2025 6:57 PM
--- NOTE | 2025-01-19 18:58 | XRay Report ---
Clinical History: Trauma 2 views of the left humerus are submitted for review. Findings: No fracture or dislocation is seen. There is mild acromioclavicular osteoarthritis. No other osseous abnormality is identified. There are no radiopaque foreign bodies. Impression: 1. No definite fracture 2. Acromioclavicular osteoarthritis Electronically signed by Júnior Leos 01-19-2025 6:58 PM
--- NOTE | 2025-01-19 18:59 | XRay Report ---
Clinical History: Trauma One view of the pelvis is submitted for review. Findings: There is internal fixation of the left femur. There is left worse than right hip osteoarthritis. No other osseous abnormality is identified. There are no radiopaque foreign bodies. There is constipation Impression: 1. Internal fixation of the left femur 2. Left worse than right hip osteoarthritis Electronically signed by Júnior Leos 01-19-2025 6:59 PM
--- NOTE | 2025-01-19 19:02 | CT Scan Report ---
Clinical History: Fall Technique: Axial computed tomography images were obtained of the brain without intravenous contrast. Findings: This examination is limited by motion artifact There is diffuse cerebral atrophy, within expected limits for the patient's age. Areas of decreased attenuation are seen within the periventricular white matter, likely representing chronic small vessel ischemic disease. There is no definite sign of acute or old infarction. No intracranial hemorrhage is evident. No definite mass lesion is seen on this noncontrast examination. There is no midline shift or other form of herniation. No hydrocephalus is seen. No fracture is identified. The orbits and the visualized paranasal sinuses appear unremarkable. The mastoid air cells appear clear. Impression: 1. Cerebral atrophy and chronic small vessel ischemic disease 2. Otherwise unremarkable noncontrast CT of the brain, limited by motion artifact Electronically signed by Júnior Leos 01-19-2025 7:02 PM
--- NOTE | 2025-01-19 19:08 | CT Scan Report ---
Clinical History: Fall Technique: Axial computed tomography images were obtained of the abdomen and pelvis after the administration of intravenous contrast. No prior CT is available for comparison. Findings: The liver is overall of normal size, attenuation, and contour with no sign of cirrhosis or significant fatty infiltration. No liver mass lesion is seen. The portal vein is patent. The gallbladder is distended but otherwise appears unremarkable. The common bile duct is at the upper limit of normal in size, measuring 6 mm The spleen is of normal size. No focal splenic lesion is evident. The pancreas appears normal with no sign of acute or chronic pancreatitis and no mass lesion noted. The pancreatic duct is of normal caliber. The adrenal glands appear unremarkable. No definite renal or proximal ureteral calculi are seen on this contrast-enhanced study. There is mild right hydronephrosis. No renal mass lesion is identified. The aorta is of normal caliber. No abdominal adenopathy is seen. The stomach appears normal. There is no sign of small bowel obstruction. There is constipation. There is diverticulosis without definite diverticulitis. There is no sign of appendicitis. No free intraperitoneal fluid or air is identified. No distal ureteral or bladder calculi are seen. No bladder mass lesion is evident. The iliac arteries are of normal caliber. No pelvic adenopathy is noted. The uterus has been removed There is bilateral hip osteoarthritis. There is internal fixation of a comminuted fracture of the left femoral neck. There is lumbar scoliosis and degenerative disc disease. Impression: 1. No definite sign of abdominal organ injury after trauma 2. Mild right hydronephrosis. No clear obstructing lesion is identified. This could be chronic, such as residual from prior obstruction or reflux 3. Diverticulosis without definite diverticulitis Electronically signed by Júnior Leos 01-19-2025 7:07 PM
--- NOTE | 2025-01-19 19:09 | CT Scan Report ---
Clinical history: Injury Technique: Axial computed tomography images were obtained of the chest after the administration of intravenous contrast Findings: There is mild dependent subsegmental atelectasis in both lower lobes. The lungs otherwise appear clear without infiltrate or mass. There is no pleural effusion or pneumothorax. There is no sign of pulmonary fibrosis or other diffuse interstitial process. No endobronchial lesion is seen There is no mediastinal, hilar, or axillary adenopathy. The thoracic aorta appears unremarkable with no sign of aneurysm or dissection. There is no pericardial effusion. There is coronary atherosclerosis. No fracture is seen. No focal osseous lesion is evident Impression: Unremarkable CT of the chest Electronically signed by Júnior Leos 01-19-2025 7:09 PM
--- NOTE | 2025-01-19 19:16 | CT Scan Report ---
Technique: Axial computed tomography images were obtained of the cervical spine without intravenous contrast. Sagittal and coronal reconstructions were obtained Comparison is made to the prior CT dated 01/16/2025 Findings: No fracture is identified. There is 2 mm of anterolisthesis of C4 and C5. No focal osseous lesion is evident. There is atlantoaxial osteoarthritis At C2-3, no disc herniation is identified. There is no spinal stenosis. The neural foramen are patent At C3-4, there is a disc bulge and a central disc protrusion, without spinal stenosis. The neural foramen are patent At C4-5, there is a disc bulge without spinal stenosis. The neural foramen are patent At C5-6, there is mild spinal stenosis due to a disc bulge and a suspected central disc protrusion. The neural foramen are patent At C6-7, there is mild spinal stenosis due to a disc bulge and a right paracentral disc protrusion. There is left neural foramen narrowing that may affect the left C7 nerve root At C7-T1,no disc herniation is identified. There is no spinal stenosis. The neural foramen are patent The lung apices appear clear. The visualized soft tissues of the neck appear unremarkable. No foreign body is seen Impression: 1. No definite cervical spine fracture 2. Mild spinal stenosis at C5-6 and C6-7 3. Left C6-7 neural foramen narrowing that may affect the left C7 nerve root Electronically signed by Júnior Leos 01-19-2025 7:15 PM
[2025-01-19] MEDS: DROPERIDOL 5 MG/2 ML VIAL IV STA ×2 (19:26→20:28)
[2025-01-19] MEDS: SODIUM CHLORIDE 0.9% 1,000 ML IV ONE (20:46)
[2025-01-19] MEDS: NovoLIN-R INSULIN PER UNIT CHARGE IV STA (21:31)
[2025-01-19] MEDS: SODIUM BICARB 8.4% INJ 50 MEQ/50 ML SYR IV STA (21:31)
[2025-01-19] MEDS: DEXTROSE 50% 50 ML SYRINGE IV ONE (21:32)
--- NOTE | 2025-01-19 21:36 | History & Physical Report ---
Date of Service January 19, 2025 Assessment & Plan (1) Hyperkalemia: Plan: Assessment and plan below following discussion of case with ED provider and reviewing patient history/pertinent normal/abnormal diagnostic test results. Hyperkalemia secondary to ARF Mild right hydronephrosis/obstructive uropathy possibly contributory to kidney dysfunction Recurrent falls, ambulatory dysfunction, possible syncope possible orthostasis (? Seroquel Rx contributory) rule out obstructive cardiac pathology hyperlipidemia, not on statin Rx DM 2 diet-controlled, well-controlled as of recent hemoglobin A1c of 6.4 this month hypothyroidism, euthyroid as of recent TSH from 2 months ago chronic anemia, hemoglobin better than baseline likely secondary to hemoconcentration Recent left hip fracture surgery on aspirin thromboembolic prophylaxis dementia, mentation at baseline Anxiety/mood disorder. Admit to med/tele Bicarb and regular insulin 1 dose now, IVF Baseline UA Recheck kidney function after initial intervention Urology consult re: unilateral hydronephrosis Check orthostatic vitals, TTE for possible syncopal workup Decrease Seroquel frequency medication for now from twice daily to once daily dosing given orthostasis concerns. ISS BG goal 110-140, carb con coverage Hold aspirin for now given recent head trauma, repeat CT head after 6 hours before resuming medication Case management consult re: placement (Patient family contemplating not returning to [facility] given patient recurrent falls.) DVT prophylaxis. SCDs Re: Recent trauma DNR as per brother/POA Mr. Tato Davis III. He requests updates from providers through [phone]. History of Present Illness Chief Complaint: Recurrent fall Primary Care Provider: [facility] History obtained from patient, family, and records. Limited history from patient secondary to dementia. Medical history significant for hyperlipidemia, DM 2 diet-controlled, hypothyroidism, chronic anemia (baseline hemoglobin 9), dementia, anxiety/mood disorder. Recent confinement last month for traumatic left femur fracture status post surgery and complicated UTI. Patient discharged to [facility] facility on aspirin course for DVT prophylaxis for 35 days prior to returning to [facility] assisted living residence as per family.. 2 [facility] ER visits since last week for unwitnessed fall. SBP 90s during one ER visit. Patient discharged back to facility with unremarkable CT imaging. Family contemplating finding another facility because they were told that patient cannot be monitored all the time at [facility]. Patient had another witnessed fall at facility today resulting in head trauma and left arm/leg pain. Denies chest pain, SOB. Denies headache, neck pain. Not sure if she passed out. No witnessed seizures/tongue biting/incontinence. Patient brought to ER for evaluation. 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 Allergies Allergy/AdvReac Type Severity Reaction Status Date / Time No Known Allergies Allergy Verified 01/19/25 21:23 Home Medications Medication Instructions Recorded Confirmed Type cholecalciferol (vitamin D3) 50 50 mcg PO QAM 10/01/24 01/19/25 History mcg (2,000 unit) capsule (Vitamin D3) cyanocobalamin (vitamin B-12) 1,000 mcg PO QAM 10/01/24 01/19/25 History 1,000 mcg tablet (Vitamin B-12) ferrous sulfate 325 mg (65 mg 325 mg PO 3XWK 10/01/24 01/19/25 History iron) tablet (FeroSul) levothyroxine 75 mcg tablet 75 mcg PO QAM 10/01/24 01/19/25 History hydroxyzine HCl 25 mg tablet 25 mg PO BID 12/29/24 01/19/25 History aspirin 81 mg tablet,delayed 81 mg PO BID 35 days #70 tabs 01/04/25 01/19/25 Rx release acetaminophen 500 mg tablet 1,000 mg PO Q8H 01/19/25 01/19/25 History (Tylenol Extra Strength) polyethylene glycol 3350 17 17 g PO DAILY PRN Constipation 01/19/25 01/19/25 History gram/dose oral powder (Miralax) quetiapine 25 mg tablet 12.5 mg PO BID 01/19/25 01/19/25 History sennosides 8.6 mg tablet (senna) 8.6 mg PO DAILYBB 01/19/25 01/19/25 History tramadol 50 mg tablet 50 mg PO Q6H PRN pain #12 tabs 01/19/25 01/19/25 Rx Past Med/Surg History Problem List (Updated 01/20/25 @ 05:20 by Barron Ryder MD) Hyperkalemia Hip pain, left (Acute) Dementia (Acute) Fall (Acute) Post-op pain (Acute) Anemia (Acute) Fall (Acute) Acute hip pain (Acute) Acute leg pain (Acute) Fall (Acute) Intertrochanteric fracture of left femur Acute UTI (Acute) Fall (Acute) Hypothyroid Dementia due to Alzheimer's disease Acute pain of right hip (Acute) Head injury (Acute) Fall (Acute) Ambulatory dysfunction (Acute) Medical History (Updated 01/20/25 @ 05:20 by Barron Ryder MD) Anemia CKD (chronic kidney disease), stage III Hyperlipidemia Diabetes mellitus type 2, controlled Surgical History (Updated 01/11/25 @ 13:27 by Carmen Gooden RN) Hip joint replacement status History of partial hysterectomy Hx of esophagogastroduodenoscopy Hx of colonoscopy Family History (Updated 01/11/25 @ 13:28 by Carmen Gooden RN) Father Lung cancer Mother Diabetes Heart disease Social History Smoking Status: Never smoker Cigarettes Per Day: unable to obtain; Preferred Language: Mexican Communication Ability: Impaired Communication Ability Comment: severe dementia Securities Adviser Required: No Beliefs That Will Affect Care: None Current Living Situation: Custodial Current Living Situation Comment: [facility] Feels Safe at Home: Yes Assistive Devices: None Review of Systems Review of Systems: Could not be reliably obtained secondary to dementia Physical Exam Physical Exam: GENERAL: Demented, slightly uncomfortable, no respiratory distress SKIN: Pallor, warm HEENT: Pale palpebral conjunctivae, no ptosis, dry buccal mucosa NECK : Supple, no tenderness CHEST : CTA, no tenderness HEART : RRR, no obvious murmurs ABDOMEN: Some distention, nontender EXTREMITIES : Minimal left hip tenderness, palpable pulses, no other conspicuous deformities noted NEUROLOGIC : Demented, no facial asymmetry, gait and stance not assessed Results & Data Results & Data Vital Signs (Past 12 Hours) Vital Signs Pulse Pulse Resp BP BP Pulse Ox O2 Del Method 01/19/25 21:23 87 18 118/71 99 Room Air 01/19/25 20:28 83 01/19/25 18:23 88 19 97 Nasal Cannula 01/19/25 16:33 76 01/19/25 16:26 75 18 136/78 92 Room Air O2 Flow Rate 01/19/25 21:23 01/19/25 20:28 01/19/25 18:23 4 01/19/25 16:33 01/19/25 16:26 Laboratory Results Laboratory Results WBC 10.91 K/ul (4.8-10.8) H 01/19/25 16:50 RBC 3.38 M/uL (4.20-5.40) L 01/19/25 16:50 Hgb 10.4 g/dl (12.0-16.0) L 01/19/25 16:50 POC Hgb 10.5 g/dl (12.0-16.0) L 01/19/25 17:02 Hct 31.5 % (37.0-47.0) L 01/19/25 16:50 POC Hct 31 % (37-47) L 01/19/25 17:02 MCV 93.2 fL (80.0-100.0) 01/19/25 16:50 MCH 30.8 pg (25.0-34.0) 01/19/25 16:50 MCHC 33.0 g/dL (32.0-36.0) 01/19/25 16:50 RDW Std Deviation 58.6 fL (36.4-46.3) H 01/19/25 16:50 RDW Coeff of Walker 17.2 % (11.5-14.5) H 01/19/25 16:50 Plt Count 512 K/uL (130-400) H 01/19/25 16:50 MPV 9.2 fL (9.4-12.4) L 01/19/25 16:50 Immature Gran % (Auto) 0.3 % 01/19/25 16:50 Neut % (Auto) 71.4 % 01/19/25 16:50 Lymph % (Auto) 19.3 % 01/19/25 16:50 Alpine % (Auto) 6.7 % 01/19/25 16:50 Eos % (Auto) 1.8 % 01/19/25 16:50 Baso % (Auto) 0.5 % 01/19/25 16:50 Neut # (Auto) 7.79 K/uL (1.40-6.50) H 01/19/25 16:50 Lymph # (Auto) 2.11 K/uL (1.20-3.40) 01/19/25 16:50 Alpine # (Auto) 0.73 K/uL (0.11-0.59) H 01/19/25 16:50 Eos # (Auto) 0.20 K/uL (0.00-0.50) 01/19/25 16:50 Baso # (Auto) 0.05 K/uL (0.00-0.20) 01/19/25 16:50 Immature Gran # (Auto) 0.03 K/uL (0.01-0.20) 01/19/25 16:50 PT 10.3 Seconds (9.0-12.0) 01/19/25 16:50 INR 1.0 (0.9-1.1) 01/19/25 16:50 APTT 25 Seconds (21-31) 01/19/25 16:50 PTT Ratio 0.9 01/19/25 16:50 POC Sodium 139 mmol/L (135-144) 01/19/25 17:02 Sodium 139 mmol/L (136-145) 01/19/25 16:50 POC Potassium 5.6 mmol/L (3.3-5.0) H 01/19/25 17:02 Potassium 5.6 mmol/L (3.5-5.1) H 01/19/25 16:50 POC Chloride 105 mmol/L (101-112) 01/19/25 17:02 Chloride 106 mmol/L (98-107) 01/19/25 16:50 Carbon Dioxide 29 mmol/L (21-32) 01/19/25 16:50 POC Total CO2 26 mmol/L (24-31) 01/19/25 17:02 Anion Gap 4 (3-11) 01/19/25 16:50 POC Anion Gap 16.0 mmol/L (16-25) 01/19/25 17:02 POC BUN 22 mg/dl (7-18) H 01/19/25 17:02 BUN 22 mg/dl (6-23) 01/19/25 16:50 Creatinine 1.31 mg/dl (0.6-1.2) H 01/19/25 16:50 POC Creatinine 1.5 mg/dl (0.6-1.3) H 01/19/25 17:02 Est Cr Clr Drug Dosing 33.1 ml/min 01/19/25 16:50 eGFR 41.70 01/19/25 16:50 BUN/Creatinine Ratio 16.8 (10-20) 01/19/25 16:50 Glucose 109 mg/dl (70-99(Fasting)) H 01/19/25 16:50 POC Glucose (other) 106 mg/dl (70-99) H 01/19/25 17:02 Calcium 8.8 mg/dl (8.6-10.3) 01/19/25 16:50 POC Ioniz Calcium Marce 1.17 mmol/l (1.12-1.32) 01/19/25 17:02 Magnesium 1.9 mg/dl (1.7-2.4) 01/19/25 16:50 Total Bilirubin 0.5 mg/dl (0.2-1.0) 01/19/25 16:50 AST 17 U/L (13-39) 01/19/25 16:50 ALT 10 U/L (7-52) 01/19/25 16:50 Alkaline Phosphatase 126 U/L (34-104) H 01/19/25 16:50 Total Creatine Kinase 39 U/L (26-192) 01/19/25 16:50 Troponin I High Sens 4.6 pg/ml (0-14) 01/19/25 16:50 Total Protein 6.2 gm/dl (6.0-8.3) 01/19/25 16:50 Albumin 3.1 gm/dl (3.4-5.0) L 01/19/25 16:50 Globulin 3.1 gm/dl (2.5-4.0) 01/19/25 16:50 Albumin/Globulin Ratio 1.0 (0.9-2) 01/19/25 16:50 Lipase 25 U/L (11-82) 01/19/25 16:50 Impressions Abdomen/Pelvis CT 01/19/25 16:23 Clinical History: Fall Technique: Axial computed tomography images were obtained of the abdomen and pelvis after the administration of intravenous contrast. No prior CT is available for comparison. Findings: The liver is overall of normal size, attenuation, and contour with no sign of cirrhosis or significant fatty infiltration. No liver mass lesion is seen. The portal vein is patent. The gallbladder is distended but otherwise appears unremarkable. The common bile duct is at the upper limit of normal in size, measuring 6 mm The spleen is of normal size. No focal splenic lesion is evident. The pancreas appears normal with no sign of acute or chronic pancreatitis and no mass lesion noted. The pancreatic duct is of normal caliber. The adrenal glands appear unremarkable. No definite renal or proximal ureteral calculi are seen on this contrast-enhanced study. There is mild right hydronephrosis. No renal mass lesion is identified. The aorta is of normal caliber. No abdominal adenopathy is seen. The stomach appears normal. There is no sign of small bowel obstruction. There is constipation. There is diverticulosis without definite diverticulitis. There is no sign of appendicitis. No free intraperitoneal fluid or air is identified. No distal ureteral or bladder calculi are seen. No bladder mass lesion is evident. The iliac arteries are of normal caliber. No pelvic adenopathy is noted. The uterus has been removed There is bilateral hip osteoarthritis. There is internal fixation of a comminuted fracture of the left femoral neck. There is lumbar scoliosis and degenerative disc disease. Impression: 1. No definite sign of abdominal organ injury after trauma 2. Mild right hydronephrosis. No clear obstructing lesion is identified. This could be chronic, such as residual from prior obstruction or reflux 3. Diverticulosis without definite diverticulitis Electronically signed by Júnior Leos 01-19-2025 7:[address] 01/19/25 16:23 Clinical history: Injury Technique: Axial computed tomography images were obtained of the chest after the administration of intravenous contrast Findings: There is mild dependent subsegmental atelectasis in both lower lobes. The lungs otherwise appear clear without infiltrate or mass. There is no pleural effusion or pneumothorax. There is no sign of pulmonary fibrosis or other diffuse interstitial process. No endobronchial lesion is seen There is no mediastinal, hilar, or axillary adenopathy. The thoracic aorta appears unremarkable with no sign of aneurysm or dissection. There is no pericardial effusion. There is coronary atherosclerosis. No fracture is seen. No focal osseous lesion is evident Impression: Unremarkable CT of the chest Electronically signed by Júnior Leos 01-19-2025 7:09 PM Chest X-Ray 01/19/25 16:23 Clinical History: Trauma Technique: A frontal view of the chest was obtained Findings: There are no confluent pulmonary infiltrates. The heart size is within normal limits. No pleural effusion or pneumothorax is seen. There is no definite pulmonary nodule. No fracture is noted. No foreign body is seen Impression: No active disease Electronically signed by Júnior Leos 01-19-2025 6:55 PM Femur X-Ray 01/19/25 16:23 Clinical History: Trauma 5 views of the femur submitted for review. Findings: There is internal fixation of a left femoral neck fracture with a fixation florentin and screws. There is a displaced lesser trochanter fracture fragment. There is mild to moderate severity left hip osteoarthritis. There is also left knee osteoarthritis. No other osseous abnormality is identified. There are surgical skin joseph laterally Impression: 1. Internal fixation of the left femur 2. Osteoarthritis Electronically signed by Júnior Leos 01-19-2025 6:57 PM Forearm X-Ray 01/19/25 16:23 Clinical History: Trauma 2 views of the forearm are submitted for review. Findings: No fracture or dislocation is seen. No significant arthritic changes are noted. No other osseous abnormality is identified. There are no radiopaque foreign bodies. Impression: Unremarkable radiographs of the left forearm Electronically signed by Júnior Leos 01-19-2025 6:57 PM Humerus X-Ray 01/19/25 16:23 Clinical History: Trauma 2 views of the left humerus are submitted for review. Findings: No fracture or dislocation is seen. There is mild acromioclavicular osteoarthritis. No other osseous abnormality is identified. There are no radiopaque foreign bodies. Impression: 1. No definite fracture 2. Acromioclavicular osteoarthritis Electronically signed by Júnior Leos 01-19-2025 6:58 PM Pelvis X-Ray 01/19/25 16:23 Clinical History: Trauma One view of the pelvis is submitted for review. Findings: There is internal fixation of the left femur. There is left worse than right hip osteoarthritis. No other osseous abnormality is identified. There are no radiopaque foreign bodies. There is constipation Impression: 1. Internal fixation of the left femur 2. Left worse than right hip osteoarthritis Electronically signed by Júnior Leos 01-19-2025 6:[address] 01/19/25 16:24 Technique: Axial computed tomography images were obtained of the cervical spine without intravenous contrast. Sagittal and coronal reconstructions were obtained Comparison is made to the prior CT dated 01/16/2025 Findings: No fracture is identified. There is 2 mm of anterolisthesis of C4 and C5. No focal osseous lesion is evident. There is atlantoaxial osteoarthritis At C2-3, no disc herniation is identified. There is no spinal stenosis. The neural foramen are patent At C3-4, there is a disc bulge and a central disc protrusion, without spinal stenosis. The neural foramen are patent At C4-5, there is a disc bulge without spinal stenosis. The neural foramen are patent At C5-6, there is mild spinal stenosis due to a disc bulge and a suspected central disc protrusion. The neural foramen are patent At C6-7, there is mild spinal stenosis due to a disc bulge and a right paracentral disc protrusion. There is left neural foramen narrowing that may affect the left C7 nerve root At C7-T1,no disc herniation is identified. There is no spinal stenosis. The neural foramen are patent The lung apices appear clear. The visualized soft tissues of the neck appear unremarkable. No foreign body is seen Impression: 1. No definite cervical spine fracture 2. Mild spinal stenosis at C5-6 and C6-7 3. Left C6-7 neural foramen narrowing that may affect the left C7 nerve root Electronically signed by Júnior Leos 01-19-2025 7:[address] 01/19/25 16:24 Clinical History: Fall Technique: Axial computed tomography images were obtained of the brain without intravenous contrast. Findings: This examination is limited by motion artifact There is diffuse cerebral atrophy, within expected limits for the patient's age. Areas of decreased attenuation are seen within the periventricular white matter, likely representing chronic small vessel ischemic disease. There is no definite sign of acute or old infarction. No intracranial hemorrhage is evident. No definite mass lesion is seen on this noncontrast examination. There is no midline shift or other form of herniation. No hydrocephalus is seen. No fracture is identified. The orbits and the visualized paranasal sinuses appear unremarkable. The mastoid air cells appear clear. Impression: 1. Cerebral atrophy and chronic small vessel ischemic disease 2. Otherwise unremarkable noncontrast CT of the brain, limited by motion artifact Electronically signed by Júnior Leos 01-19-2025 7:02 PM Diagnostic Findings EKG as per my interpretation :Rate 70, NSR, normal axis, no ischemia
[2025-01-19] MEDS ORDERED: POLYETHYLENE (MIRALAX) 17 GM PACK PO PRN (22:21)
[2025-01-20 00:15] LABS: Anion Gap 6.0 (3-11); Blood Urea Nitrogen 20.0 mg/dl (6-23); Calcium 8.5 mg/dl (8.6-10.3); Carbon Dioxide 28.0 mmol/L (21-32); Chloride 108.0 mmol/L (98-107); Creatinine Clr Calc Pharmacy 34.4 ml/min; Glucose 47.0 mg/dl (70-99(Fasting)); Potassium 4.0 mmol/L (3.5-5.1); Sodium 142.0 mmol/L (136-145)
[2025-01-20] MEDS: DEXTROSE 50% 50 ML SYRINGE IV STA (01:37)
[2025-01-20] MEDS: ACETAMINOPHEN 500 MG TAB PO SCH (02:26)
[2025-01-20 04:25] LABS: Hematocrit (blood only) 31.4 % (37.0-47.0); Hemoglobin 10.0 g/dl (12.0-16.0); Immature Granulocytes # (auto) 0.04 K/uL (0.01-0.20); Immature Granulocytes % (auto) 0.4 %; Mean Corpuscular Hemoglobin 29.5 pg (25.0-34.0); Mean Corpuscular Volume 92.6 fL (80.0-100.0); Platelet Count 522 K/uL (130-400); RDW Standard Deviation 58.8 fL (36.4-46.3); Red Blood Count 3.39 M/uL (4.20-5.40); White Blood Count 10.58 K/ul (4.8-10.8)
[2025-01-20 04:54] LABS: Anion Gap 9 (3-11); Blood Urea Nitrogen 19 mg/dl (6-23); Calcium 8.6 mg/dl (8.6-10.3); Carbon Dioxide 25 mmol/L (21-32); Chloride 108 mmol/L (98-107); Creatinine Clr Calc Pharmacy 37.0 ml/min; Glucose 95 mg/dl (70-99(Fasting)); Sodium 142 mmol/L (136-145)
[2025-01-20] MEDS ORDERED: GLUCAGON FOR INJ 1 MG VIAL SQ PRN (06:24)
[2025-01-20] MEDS ORDERED: GLUCOSE 10 TAB/TUBE PO PRN (06:24)
[2025-01-20] MEDS ORDERED: GLUCOSE 40% GEL 15 GM TUBE PO PRN (06:24)
[2025-01-20] MEDS ORDERED: DEXTROSE 50% 50 ML SYRINGE IV PRN (06:24)
[2025-01-20] MEDS ORDERED: CARBOHYDRATES FOR HYPOGLYCEMIA PO PRN (06:24)
--- NOTE | 2025-01-20 08:28 | CT Scan Report ---
CT head/brain wo con CLINICAL HISTORY: ff up head trauma. TECHNIQUE: Multiple axial CT images of the head were obtained without contrast. A dose lowering tech nique was utilized adhering to the principles of ALARA. CT DOSE: 547.75 mGy.cm COMPARISON: 01/19/2025 FINDINGS: There is mild motion artifact. No intracranial hemorrhage seen. No mass effect or midline s hift. There is stable mild prominence of the ventricles out of proportion to the sulci, cerebral atro phy versus mild normal pressure hydrocephalus. There are stable [id number] chronic small vessel ischemic changes. No skull fracture seen. Visualized paranasal sinuses and mastoid air cells are bairon ar. IMPRESSION: No acute findings. ACT 112: Negative or not required by law. The above report was generated using voice recognition software. It may contain grammatical, syntax o r spelling errors. Electronically signed by: Johnson Collier M.D. 01/20/2025 8:27 AM
[2025-01-20] MEDS: INSULIN ASPART PER UNIT CHARGE SC SCH (08:39)
[2025-01-20] MEDS: CYANOCOBALAMIN (B-12) 500 MCG TABLET PO SCH (08:50)
[2025-01-20] MEDS: SENNA 8.6 MG TAB PO SCH (08:50)
[2025-01-20] MEDS: LEVOTHYROXINE SODIUM 75 MCG TABLET PO SCH (08:50)
--- NOTE | 2025-01-20 09:04 | Urology Consultation ---
Date of Consultation January 20, 2025 Assessment & Plan (1) Hydronephrosis, right: Plan 79-year-old female that was admitted for hyperkalemia. She has been afebrile with stable vitals. Labs showed a white count of 10.5, creatinine of 1.17 which appears to be roughly her baseline. No urinalysis was performed. A CT scan of the abdomen pelvis was performed which showed mild bilateral pelviectasis with a fairly significant distended bladder and a large rectal stool ball. Urology was consulted for a read of right hydronephrosis. I reviewed her CT scan which is overall not that impressive. Mild dilation could be simply from distended bladder which is likely secondary to constipation based on large amount of stool in rectum Patient denies any flank pain or urinary symptoms Recommend getting urinalysis. Can check PVRs to ensure she is emptying appropriately. If higher than 400 cc, recommend indwelling catheter placement. Aggressive bowel regimen No urologic intervention necessary Urology will sign off. There is not appear any reason to have outpatient urology follow-up at this time History of Present Illness Attending Physician: Sloan Ramsey MD History of Present Illness 79-year-old female that was admitted for hyperkalemia. She has been afebrile with stable vitals. Labs showed a white count of 10.5, creatinine of 1.17 which appears to be roughly her baseline. No urinalysis was performed. A CT scan of the abdomen pelvis was performed which showed mild bilateral pelviectasis with a fairly significant distended bladder and a large rectal stool ball. Urology was consulted for a read of right hydronephrosis. Patient denies any right flank pain, dysuria or constipation symptoms. She is fairly somnolent and hard to get a history from. Allergies Allergy/AdvReac Type Severity Reaction Status Date / Time No Known Allergies Allergy Verified 01/19/25 21:23 Home Medications Medication Instructions Recorded Confirmed Type cholecalciferol (vitamin D3) 50 50 mcg PO QAM 10/01/24 01/19/25 History mcg (2,000 unit) capsule (Vitamin D3) cyanocobalamin (vitamin B-12) 1,000 mcg PO QAM 10/01/24 01/19/25 History 1,000 mcg tablet (Vitamin B-12) ferrous sulfate 325 mg (65 mg 325 mg PO 3XWK 10/01/24 01/19/25 History iron) tablet (FeroSul) levothyroxine 75 mcg tablet 75 mcg PO QAM 10/01/24 01/19/25 History hydroxyzine HCl 25 mg tablet 25 mg PO BID 12/29/24 01/19/25 History aspirin 81 mg tablet,delayed 81 mg PO BID 35 days #70 tabs 01/04/25 01/19/25 Rx release acetaminophen 500 mg tablet 1,000 mg PO Q8H 01/19/25 01/19/25 History (Tylenol Extra Strength) polyethylene glycol 3350 17 17 g PO DAILY PRN Constipation 01/19/25 01/19/25 History gram/dose oral powder (Miralax) quetiapine 25 mg tablet 12.5 mg PO BID 01/19/25 01/19/25 History sennosides 8.6 mg tablet (senna) 8.6 mg PO DAILYBB 01/19/25 01/19/25 History tramadol 50 mg tablet 50 mg PO Q6H PRN pain #12 tabs 01/19/25 01/19/25 Rx Patient History Medical History (Updated 01/20/25 @ 09:42 by Sarabjit Shea MD) Anemia CKD (chronic kidney disease), stage III Hyperlipidemia Diabetes mellitus type 2, controlled Surgical History (Updated 01/11/25 @ 13:27 by Carmen Gooden RN) Hip joint replacement status History of partial hysterectomy Hx of esophagogastroduodenoscopy Hx of colonoscopy Family History (Updated 01/11/25 @ 13:28 by Carmen Gooden RN) Father Lung cancer Mother Diabetes Heart disease Social History Smoking Status: Never smoker Cigarettes Per Day: unable to obtain; Preferred Language: Irish Communication Ability: Impaired Communication Ability Comment: severe dementia [employer] Required: No Beliefs That Will Affect Care: None Current Living Situation: Long-Term Current Living Situation Comment: [facility] Feels Safe at Home: Yes Assistive Devices: None Physical Exam Physical Exam: General: Alert and oriented, no acute distress HEENT: Normocephalic, mucous membranes moist Pulmonary: Nonlabored respirations Abdomen: Nondistended Extremities: Moves all 4 spontaneously Neuro: No gross deficits Skin: Warm, dry, no rashes noted Results & Data Vital Signs (Past 12 Hours) Vital Signs Pulse Pulse Resp BP BP Pulse Ox O2 Del Method 01/20/25 04:48 115/64 01/20/25 04:03 96 H 25 H 01/20/25 02:09 95 H 15 113/71 94 01/20/25 02:01 92 H 18 113/71 93 Room Air 01/19/25 23:51 87 17 01/19/25 23:24 88 16 01/19/25 23:12 90 23 95 01/19/25 23:00 18 122/75 96 Room Air 01/19/25 22:48 94 H 12 01/19/25 22:30 87 13 01/19/25 22:21 89 15 01/19/25 22:12 88 15 01/19/25 22:00 92 H 17 01/19/25 21:54 91 H 13 01/19/25 21:23 88 15 118/71 01/19/25 21:23 87 18 118/71 99 Room Air PG Care Time/CCT Total # of Minutes Spent Total Time Spent with Patient: Total time spent is greater than 50% in coordination of care (as documented) at patient's floor/unit and/or counseling patient: Coding Level of Care Code 60472 INT INP/OBS CARE 2/55MIN Diagnoses Hydronephrosis, right N13.30
--- NOTE | 2025-01-20 14:51 | Hospitalist Progress Note ---
Date of Service January 20, 2025 Assessment & Plan (1) Hyperkalemia: Plan: Acute kidney injury Hyperkalemia Likely due to dehydration, poor oral intake --CT ABD:No definite renal or proximal ureteral calculi are seen on this contrast-enhanced study. There is mild right hydronephrosis. No renal mass lesion is identified. Hyperkalemia resolved with fluids Encouraged to increase oral fluid intake IV fluids as needed Monitor renal function Avoid nephrotoxic agents as able Mild right hydronephrosis --CT ABD:Mild right hydronephrosis. No clear obstructing lesion is identified. This could be chronic, such as residual from prior obstruction or reflux Thought to be secondary to constipation Appreciate urology input Monitor bladder scan and if residual greater than 400, will place Sims catheter Monitor urine output Recurrent falls Possible syncope Ambulatory dysfunction Possible orthostasis/Seroquel contributing to balance issues Hold Seroquel for now --Echo pending --CT head:No acute findings. Currently not on any antihypertensives Monitor blood pressure PT OT, fall precautions Constipation No signs of bowel obstruction Continue bowel regimen DM II Last HbA1c 6.4 Continue insulin while hospitalized Monitor blood glucose levels Hypothyroidism Update TSH Continue levothyroxine Chronic anemia Hemoglobin at baseline Continue iron supplements Monitor Recent left hip fracture S/P Surgery Was on aspirin for DVT prophylaxis Dementia Anxiety/mood disorder. Reorient frequently Continue home medications Will check vitamin B-12 level Urinalysis pending DVT Px: Heparin SQ CODE STATUS DNI DNR Disposition Family requesting SNF placement Case management to help with discharge planning PT OT prior to discharge Admission and Anticipated Discharge Date Admission Date: January 19, 2025 Subjective Patient is seen and examined at bedside Pleasantly confused during my encounter this morning Poor historian due to dementia Unsure as to why she was brought to the hospital Discussed with patient's family over the phone Also discussed with urology today Review of Systems Review of Systems: Other Physical Exam Physical Exam: Physical Exam: Vitals signs as noted above General Appearance: Thin, frail, elderly, no apparent distress, pleasantly confused Head: normocephalic, Atraumatic Eyes: normal inspection, EOMI Neck: supple, Trachea midline Respiratory/Chest: Normal breath sounds, CTA, No accessory muscle use Cardiovascular: S1, S2, No murmur Abdomen/GI:Soft, Non tender, Bowel sounds present Extremities/Musculoskeletal:normal inspection, no edema,+ left hip mildly tender Neurologic/Psych: Alert, awake, oriented to person only, grossly no focal neuro logical deficits,+ dementia Skin: normal color, warm,+ multiple bruises, ecchymosis on extremities Results & Data Results & Data Vital Signs (Past 12 Hours) Vital Signs Pulse Pulse Resp BP Pulse Ox O2 Del Method 01/20/25 14:33 76 18 105/74 98 Room Air 01/20/25 12:39 70 18 106/78 98 Room Air 01/20/25 04:48 115/64 01/20/25 04:03 96 H 25 H Laboratory Results Short CBC 01/19/25 01/20/25 Range/Units 16:50 04:10 WBC 10.91 H 10.58 (4.8-10.8) K/ul Hgb 10.4 L 10.0 L (12.0-16.0) g/dl Hct 31.5 L 31.4 L (37.0-47.0) % Plt Count 512 H 522 H (130-400) K/uL BMP 01/19/25 01/19/25 01/20/25 16:50 23:19 04:10 Sodium 139 142 142 Potassium 5.6 H 4.0 D TNP Chloride 106 108 H 108 H Carbon Dioxide 29 28 25 BUN 22 20 19 Creatinine 1.31 H 1.26 H 1.17 Glucose 109 H 47 L* 95 Calcium 8.8 8.5 L 8.6 01/20/25 07:22 Sodium Potassium 4.6 Chloride Carbon Dioxide BUN Creatinine Glucose Calcium Cardiac Enzymes 01/19/25 Range/Units 16:50 Total Creatine Kinase 39 (26-192) U/L Liver Function 01/19/25 Range/Units 16:50 Total Bilirubin 0.5 (0.2-1.0) mg/dl AST 17 (13-39) U/L ALT 10 (7-52) U/L Alkaline Phosphatase 126 H (34-104) U/L Albumin 3.1 L (3.4-5.0) gm/dl
[2025-01-20 15:20] LABS: Appearance Urine Clear (Clear); Glucose Urine UA Negative (Negative)
--- NOTE | 2025-01-20 15:52 | XCELERA ---
[id number] \\[email or web address]\[id number]
[2025-01-20] MEDS: D5W AND 1/2NSS 1,000 ML IV ONE (18:47)
[2025-01-20] MEDS: HEPARIN SOD 5,000 UNIT/0.5 ML VIAL SQ SCH (21:37)
--- NOTE | 2025-01-21 05:55 | Electrocardiogram Report ---
Test Reason : Blood Pressure : */* mmHG Vent. Rate : 70 BPM Atrial Rate : 70 BPM P-R Int : 174 ms QRS Dur : 70 ms QT Int : 374 ms P-R-T Axes : 65 52 70 degrees QTcB Int : 403 ms Normal sinus rhythm Normal ECG When compared with ECG of 14-Jan-2025 17:43, No significant change was found Confirmed by Drew Thompson ([id number]) on 01/21/2025 5:55:04 AM Referred By: Confirmed By: Drew Thompson
[2025-01-21 09:06] LABS: Hematocrit (blood only) 30.1 % (37.0-47.0); Hemoglobin 9.4 g/dl (12.0-16.0); Mean Corpuscular Hemoglobin 29.5 pg (25.0-34.0); Mean Corpuscular Volume 94.4 fL (80.0-100.0); Platelet Count 418 K/uL (130-400); RDW Standard Deviation 60.3 fL (36.4-46.3); Red Blood Count 3.19 M/uL (4.20-5.40); White Blood Count 7.54 K/ul (4.8-10.8)
[2025-01-21 09:23] LABS: Anion Gap 6.0 (3-11); Blood Urea Nitrogen 14.0 mg/dl (6-23); Calcium 8.3 mg/dl (8.6-10.3); Carbon Dioxide 25.0 mmol/L (21-32); Chloride 108.0 mmol/L (98-107); Creatinine Clr Calc Pharmacy 29.3 ml/min; Glucose 91.0 mg/dl (70-99(Fasting)); Magnesium 1.7 mg/dl (1.7-2.4); Potassium 3.8 mmol/L (3.5-5.1); Sodium 139.0 mmol/L (136-145)
[2025-01-21 09:39] LABS: Thyroid Stimulating Hormone 4.901 uIu/ml (0.300-4.500)
[2025-01-21 10:14] LABS: T4 Free Thyroxine 1.2 ng/dl (0.61-1.60)
[2025-01-21] MEDS ORDERED: PHA DELIRIUM CONSULT PRN (12:17)
--- NOTE | 2025-01-21 15:28 | Hospitalist Progress Note ---
Date of Service January 21, 2025 Assessment & Plan (1) Hyperkalemia: Plan: Acute kidney injury Hyperkalemia--resolved Likely due to dehydration, poor oral intake --CT ABD:No definite renal or proximal ureteral calculi are seen on this contrast-enhanced study. There is mild right hydronephrosis. No renal mass lesion is identified. Hyperkalemia resolved with fluids Encouraged to increase oral fluid intake IV fluids as needed Monitor renal function Avoid nephrotoxic agents as able Poor oral intake Mild right hydronephrosis --CT ABD:Mild right hydronephrosis. No clear obstructing lesion is identified. This could be chronic, such as residual from prior obstruction or reflux Thought to be secondary to constipation Appreciate urology input Monitor bladder scan and if residual greater than 400, will place Sims catheter Monitor urine output Recurrent falls Possible syncope Ambulatory dysfunction Possible orthostasis/Seroquel contributing to balance issues Hold Seroquel for now --Echo: EF 55 to 60%. Right ventricle cavity is normal. Right ventricular systolic function is normal. Mild aortic regurgitation. No mitral valve stenosis. --CT head:No acute findings. Currently not on any antihypertensives Monitor blood pressure PT OT, fall precautions Constipation No signs of bowel obstruction Continue bowel regimen Patient had documented bowel movement today DM II Last HbA1c 6.4 Continue insulin while hospitalized Monitor blood glucose levels Hypothyroidism TSH 4.9, free T4 1.2 Continue levothyroxine Chronic anemia Hemoglobin at baseline Continue iron supplements Monitor Recent left hip fracture S/P Surgery Was on aspirin for DVT prophylaxis Dementia Anxiety/mood disorder. UA no signs of UTI Reorient frequently Continue home medications DVT Px: Heparin SQ CODE STATUS DNI DNR Disposition Family requesting SNF placement Case management to help with discharge planning PT OT prior to discharge Admission and Anticipated Discharge Date Admission Date: January 19, 2025 Subjective Patient is seen and examined at bedside Sleeping comfortably during my encounter Refused pills this morning Agitated earlier today per staff No distress on exam Review of Systems 2 Review of Systems: Other Physical Exam Physical Exam: Physical Exam: Vitals signs as noted above General Appearance: Thin, frail, elderly, no apparent distress, pleasantly confused Head: normocephalic, Atraumatic Eyes: normal inspection, EOMI Neck: supple, Trachea midline Respiratory/Chest: Normal breath sounds, CTA, No accessory muscle use Cardiovascular: S1, S2, No murmur Abdomen/GI:Soft, Non tender, Bowel sounds present Extremities/Musculoskeletal:normal inspection, no edema,+ left hip mildly tender Neurologic/Psych: Alert, awake, oriented to person only, grossly no focal neurological deficits,+ dementia Skin: normal color, warm,+ multiple bruises, ecchymosis on extremities Results & Data Results & Data Vital Signs (Past 12 Hours) Vital Signs Temp Pulse Pulse Resp BP Pulse Ox O2 Del Method 01/21/25 15:02 74 01/21/25 12:10 Room Air 01/21/25 11:53 36.6 C 74 16 122/77 99 Room Air 01/21/25 07:58 36.3 C L 78 16 118/72 94 Room Air 01/21/25 07:09 77 Laboratory Results Short CBC 01/21/25 Range/Units 08:52 WBC 7.54 (4.8-10.8) K/ul Hgb 9.4 L (12.0-16.0) g/dl Hct 30.1 L (37.0-47.0) % Plt Count 418 H (130-400) K/uL BMP 01/21/25 08:52 Sodium 139 Potassium 3.8 Chloride 108 H Carbon Dioxide 25 BUN 14 Creatinine 1.24 H Glucose 91 Calcium 8.3 L
[2025-01-22] MEDS: SODIUM CHLORIDE 0.9% 1,000 ML IV ONE (10:42)
--- NOTE | 2025-01-22 15:34 | Hospitalist Progress Note ---
Date of Service January 22, 2025 Assessment & Plan (1) Hyperkalemia: Plan: Acute kidney injury Hyperkalemia--resolved Likely due to dehydration, poor oral intake --CT ABD:No definite renal or proximal ureteral calculi are seen on this contrast-enhanced study. There is mild right hydronephrosis. No renal mass lesion is identified. Hyperkalemia resolved with fluids Encouraged to increase oral fluid intake Monitor renal function Avoid nephrotoxic agents as able Encouraged to increase oral intake IV fluids as needed Waiting for placement Mild right hydronephrosis --CT ABD:Mild right hydronephrosis. No clear obstructing lesion is identified. This could be chronic, such as residual from prior obstruction or reflux Thought to be secondary to constipation Appreciate urology input Monitor bladder scan and if residual greater than 400, will place Sims catheter Monitor urine output Recurrent falls Possible syncope Ambulatory dysfunction Possible orthostasis/Seroquel contributing to balance issues Hold Seroquel for now --Echo: EF 55 to 60%. Right ventricle cavity is normal. Right ventricular systolic function is normal. Mild aortic regurgitation. No mitral valve stenosis. --CT head:No acute findings. Currently not on any antihypertensives Monitor blood pressure PT OT, fall precautions Constipation No signs of bowel obstruction Continue bowel regimen Patient had documented bowel movement today DM II Last HbA1c 6.4 Continue insulin while hospitalized Monitor blood glucose levels Hypothyroidism TSH 4.9, free T4 1.2 Continue levothyroxine Chronic anemia Hemoglobin at baseline Continue iron supplements Monitor Recent left hip fracture S/P Surgery Was on aspirin for DVT prophylaxis Dementia Anxiety/mood disorder. UA no signs of UTI Reorient frequently Continue home medications Avoid narcotics as able DVT Px: Heparin SQ CODE STATUS DNI DNR Disposition Family requesting SNF placement Case management to help with discharge planning PT recommends SNF Admission and Anticipated Discharge Date Admission Date: January 19, 2025 Subjective Patient is seen and examined at bedside Pleasantly confused Offers no complaint Waiting for placement Lying comfortably in bed during my encounter Pulled IV line per business development representative of Systems Review of Systems: Other Physical Exam Physical Exam: Physical Exam: Vitals signs as noted above General Appearance: Thin, frail, elderly, no apparent distress, pleasantly confused Head: normocephalic, Atraumatic Eyes: normal inspection, EOMI Neck: supple, Trachea midline Respiratory/Chest: Normal breath sounds, CTA, No accessory muscle use Cardiovascular: S1, S2, No murmur Abdomen/GI:Soft, Non tender, Bowel sounds present Extremities/Musculoskeletal:normal inspection, no edema,+ left hip mildly tender Neurologic/Psych: Alert, awake, oriented to person only, grossly no focal neurological deficits,+ dementia Skin: normal color, warm,+ multiple bruises, ecchymosis on extremities Results & Data Results & Data Vital Signs (Past 12 Hours) Vital Signs Temp Pulse Pulse Resp BP Pulse Ox O2 Del Method 01/22/25 14:44 84 01/22/25 11:33 89 18 100/67 99 Room Air 01/22/25 10:54 Room Air 01/22/25 08:30 36.7 C 87 18 90/59 L 98 Room Air 01/22/25 07:48 79 01/22/25 03:46 36.3 C L 78 16 109/69 98 Room Air
[2025-01-23 07:12] LABS: Anion Gap 8.0 (3-11); Blood Urea Nitrogen 17.0 mg/dl (6-23); Calcium 8.6 mg/dl (8.6-10.3); Carbon Dioxide 24.0 mmol/L (21-32); Chloride 108.0 mmol/L (98-107); Creatinine Clr Calc Pharmacy 31.1 ml/min; Glucose 85.0 mg/dl (70-99(Fasting)); Potassium 4.2 mmol/L (3.5-5.1); Sodium 140.0 mmol/L (136-145)
--- NOTE | 2025-01-23 14:03 | Hospitalist Progress Note ---
Date of Service January 23, 2025 Assessment & Plan (1) Hyperkalemia: Plan: Acute kidney injury Hyperkalemia--resolved Likely due to dehydration, poor oral intake --CT ABD:No definite renal or proximal ureteral calculi are seen on this contrast-enhanced study. There is mild right hydronephrosis. No renal mass lesion is identified. Hyperkalemia resolved with fluids Encouraged to increase oral fluid intake Monitor renal function Avoid nephrotoxic agents as able Encouraged to increase oral intake IV fluids as needed Waiting for placement Stable for discharge Case management to help with discharge planning Mild right hydronephrosis --CT ABD:Mild right hydronephrosis. No clear obstructing lesion is identified. This could be chronic, such as residual from prior obstruction or reflux Thought to be secondary to constipation Appreciate urology input Monitor bladder scan and if residual greater than 400, will place Sims catheter Monitor urine output Recurrent falls Possible syncope Ambulatory dysfunction Possible orthostasis/Seroquel contributing to balance issues Hold Seroquel for now --Echo: EF 55 to 60%. Right ventricle cavity is normal. Right ventricular systolic function is normal. Mild aortic regurgitation. No mitral valve stenosis. --CT head:No acute findings. Currently not on any antihypertensives Monitor blood pressure PT OT, fall precautions Constipation No signs of bowel obstruction Continue bowel regimen DM II Last HbA1c 6.4 Continue insulin while hospitalized Monitor blood glucose levels Hypothyroidism TSH 4.9, free T4 1.2 Continue levothyroxine Chronic anemia Hemoglobin at baseline Continue iron supplements Monitor Recent left hip fracture S/P Surgery Was on aspirin for DVT prophylaxis Dementia Anxiety/mood disorder. UA no signs of UTI Reorient frequently Continue home medications Avoid narcotics as able No agitation today DVT Px: Heparin SQ CODE STATUS DNI DNR Disposition Family requesting SNF placement Case management to help with discharge planning PT recommends SNF Admission and Anticipated Discharge Date Admission Date: January 19, 2025 Subjective Patient is seen and examined at bedside Poor historian due to cognitive issues Pleasantly confused Waiting for rehab placement Review of Systems Review of Systems: All systems reviewed & are unremarkable except as noted in Subjective Physical Exam Physical Exam: Physical Exam: Vitals signs as noted above General Appearance: Thin, frail, elderly, no apparent distress, pleasantly confused Head: normocephalic, Atraumatic Eyes: normal inspection, EOMI Neck: supple, Trachea midline Respiratory/Chest: Normal breath sounds, CTA, No accessory muscle use Cardiovascular: S1, S2, No murmur Abdomen/GI:Soft, Non tender, Bowel sounds present Extremities/Musculoskeletal:normal inspection, no edema,+ left hip mildly tender Neurologic/Psych: Alert, awake, oriented to person only, grossly no focal neurological deficits,+ dementia Skin: normal color, warm,+ multiple bruises, ecchymosis on extremities Results & Data Results & Data Vital Signs (Past 12 Hours) Vital Signs Temp Pulse Pulse Resp BP Pulse Ox O2 Del Method 01/23/25 10:36 36.4 C L 85 18 91/60 L 97 Room Air 01/23/25 08:30 Room Air 01/23/25 07:34 36.5 C 86 20 107/65 100 Room Air 01/23/25 07:[address] [facility] 01/23/25 06:36 Sodium 140 Potassium 4.2 Chloride 108 H Carbon Dioxide 24 BUN 17 Creatinine 1.15 Glucose 85 Calcium 8.6
[2025-01-23 22:52] VITALS: TEMP 97.7
[2025-01-24 07:31] VITALS: PULSE 71; RESP 18; O2SAT 100
[2025-01-24] MEDS: FERROUS SULFATE 325 MG TAB PO SCH (08:40)
[2025-01-24 11:08] LABS: Hematocrit (blood only) 34.1 % (37.0-47.0); Hemoglobin 11.0 g/dl (12.0-16.0); Mean Corpuscular Hemoglobin 30.4 pg (25.0-34.0); Mean Corpuscular Volume 94.2 fL (80.0-100.0); Platelet Count 368 K/uL (130-400); RDW Standard Deviation 58.5 fL (36.4-46.3); Red Blood Count 3.62 M/uL (4.20-5.40); White Blood Count 6.41 K/ul (4.8-10.8)
[2025-01-24 11:24] LABS: Anion Gap 6.0 (3-11); Blood Urea Nitrogen 18.0 mg/dl (6-23); Calcium 8.9 mg/dl (8.6-10.3); Carbon Dioxide 26.0 mmol/L (21-32); Chloride 108.0 mmol/L (98-107); Creatinine Clr Calc Pharmacy 31.3 ml/min; Glucose 92.0 mg/dl (70-99(Fasting)); Potassium 4.6 mmol/L (3.5-5.1); Sodium 140.0 mmol/L (136-145)
--- NOTE | 2025-01-24 12:05 | Discharge Summary ---
Date of Service January 24, 2025 Admission HPI Per Admitting Provider History obtained from patient, family, and records. Limited history from patient secondary to dementia. Medical history significant for hyperlipidemia, DM 2 diet-controlled, hypothyroidism, chronic anemia (baseline hemoglobin 9), dementia, anxiety/mood disorder. Recent confinement last month for traumatic left femur fracture status post surgery and complicated UTI. [facility] on aspirin course for DVT prophylaxis for 35 days prior to returning to [facility] assisted living residence as per family.. [address] [facility] ER visits since last week for unwitnessed fall. SBP 90s during one ER visit. Patient discharged back to facility with unremarkable CT imaging. Family contemplating finding another facility because they were told that patient cannot be monitored all the time at [facility]. Patient had another witnessed fall at facility today resulting in head trauma and left arm/leg pain. Denies chest pain, SOB. Denies headache, neck pain. Not sure if she passed out. No witnessed seizures/tongue biting/incontinence. Patient brought to ER for evaluation. 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 Admission Exam Per Admitting Provider GENERAL: Demented, slightly uncomfortable, no respiratory distress SKIN: Pallor, warm HEENT: Pale palpebral conjunctivae, no ptosis, dry buccal mucosa NECK : Supple, no tenderness CHEST : CTA, no tenderness HEART : RRR, no obvious murmurs ABDOMEN: Some distention, nontender EXTREMITIES : Minimal left hip tenderness, palpable pulses, no other conspicuous deformities noted NEUROLOGIC : Demented, no facial asymmetry, gait and stance not assessed Principal Diagnosis ADINA Hyperkalemia Discharge Exam Physical Exam: Vitals signs as noted above General Appearance: Thin, frail, elderly, no apparent distress, pleasantly confused Respiratory/Chest: Normal breath sounds, CTA, No accessory muscle use Cardiovascular: S1, S2, No murmur Abdomen/GI:Soft, Non tender, Bowel sounds present Extremities/Musculoskeletal:normal inspection, no edema, Neurologic/Psych: Alert, awake, oriented to person only, grossly no focal neurological deficits,+ dementia Discharge Data Allergies Allergy/AdvReac Type Severity Reaction Status Date / Time No Known Allergies Allergy Verified 01/19/25 21:23 Consultations 01/19/25 19:54 ED Decision to Admit Stat 11/01/25 05:25 Consult Urology Routine Ordered Studies 01/19/25 16:23 CT abd pelvis IV con only Stat CT chest diagnostic w con Stat 01/19/25 16:24 CT cervical spine wo con Stat CT head/brain wo con Stat 01/20/25 05:19 CT head/brain wo con Urgent Hospital Course (1) Hyperkalemia: Acute kidney injury Hyperkalemia--resolved Likely due to dehydration, poor oral intake --CT ABD:No definite renal or proximal ureteral calculi are seen on this contrast-enhanced study. There is mild right hydronephrosis. No renal mass lesion is identified. Hyperkalemia resolved with fluids Patient was discharged to rehab as per PT OT recommendation Mild right hydronephrosis --CT ABD:Mild right hydronephrosis. No clear obstructing lesion is identified. This could be chronic, such as residual from prior obstruction or reflux Trial of void at the time of the discharge done Recurrent falls Possible syncope Ambulatory dysfunction Possible orthostasis/Seroquel contributing to balance issues Hold Seroquel for now --Echo: EF 55 to 60%. Right ventricle cavity is normal. Right ventricular systolic function is normal. Mild aortic regurgitation. No mitral valve stenosis. --CT head:No acute findings. Currently not on any antihypertensives Constipation No signs of bowel obstruction Continue bowel regimen DM II Last HbA1c 6.4 Continue insulin while hospitalized Monitor blood glucose levels diet controlled Hypothyroidism TSH 4.9, free T4 1.2 Continue levothyroxine Recent left hip fracture S/P Surgery Dementia Anxiety/mood disorder. UA no signs of UTI Reorient frequently Total Time Total Time Spent Total Time Spent (In Minutes): 45 Total Time Includes: Examination of the Patient, Discharge Planning, Medication Reconciliation, Communication With Other Providers and Other Discharge Plan Discharge Items Patient Disposition: Transfer Inpatient Rehab Fac Reason For Visit: HYPER K Discharge Diagnosis: Acute kidney injury Hyperkalemia Condition on Discharge: Fair Activity: Resume your previous activity Non-emergency contact: Primary Care Provider Call non-emergency contact if: you have any medication questions and your symptoms worsen Follow-up/Referrals: Becca Ng [Primary Care Provider] - Diet: Regular Addtl Attending Provider Instructions: Please take your meds as prescribed below Pending Studies at Discharge: No Stand-Alone Forms: My [place], Smoking Cessation Skilled Items Patient informed of condition?: No DNR: Yes Discharge Level of Care: Skilled Communicable Disease: No Discharge Prognosis: Stable Lines: None Urinary Catheter: No Medications and DC Order Prescriptions: Continued sennosides [senna] 8.6 mg Tablet 8.6 mg PO DAILYBB Qty: 30 0RF cyanocobalamin (vitamin B-12) [Vitamin B-12] 1,000 mcg Tablet 1,000 mcg PO QAM Qty: 30 0RF aspirin 81 mg Tablet,Delayed Release (Dr/Ec) 81 mg PO BID 35 Days Qty: 70 0RF levothyroxine 75 mcg tablet 75 mcg PO QAM Qty: 30 0RF ferrous sulfate [FeroSul] 325 mg (65 mg iron) Tablet 325 mg PO 3XWK Qty: 30 0RF Rx Instructions: MON, WED, & FRI hydroxyzine HCl 25 mg tablet 25 mg PO BID Qty: 60 0RF cholecalciferol (vitamin D3) [Vitamin D3] 50 mcg (2,000 unit) Capsule 50 mcg PO QAM Qty: 30 0RF polyethylene glycol 3350 [Miralax] 17 gram/dose Powder 17 g PO DAILY PRN (Reason: Constipation) Qty: 119 0RF Changed acetaminophen [Tylenol Extra Strength] 500 mg Tablet 1,000 mg PO Q8H PRN (Reason: pain) Qty: 30 0RF Discontinued tramadol 50 mg tablet 50 mg PO Q6H PRN (Reason: pain) Qty: 12 0RF Rx Instructions: Take one tablet by mouth every 6 hours as needed for pain. quetiapine 25 mg tablet 12.5 mg PO BID Discharge Orders: Discharge Order (Routine); Ordered 01/24/25 Ordered By: Avila Patrick Admission Data Admit Date/Time: 01/19/25 21:56 Attending Provider: Avila Patrick Admit Provider: Barron Ryder Primary Care Provider: Becca Ng Other Providers: Barron Ryder; Donna Eugene [facility]
[2025-01-24 14:46] VITALS: BP 100/62
== END 2025-01-24 14:52 | DRG 683 ==
LOC: ED 16:05 → SUATTDRO 21:56 → EDINP 21:56 → 2N 01-20 06:00